=== PATIENT | male | born 1955 | race American Indian/Alaskan Native ===

== ENCOUNTER → 2017-06-14 | Outpatient (REF) | payer OTHER ==
[2017-06-14 13:33] LABS: BASO # 0.1 10^3/uL (0.0-0.2); BASO % 0.9 % (0.0-1.0); EOS # 0.3 10^3/uL (0.0-0.50); EOS % 4.6 % (0.0-3.0); HEMATOCRIT 48.2 % (42.0-52.0); IMMATURE GRANULOCYTE % 0.1 % (0-3.0); LYMPH % 13.7 % (24.0-44.0); MEAN CORPUSCULAR HEMOGLOBIN 31.2 pg (27.0-33.0); MEAN CORPUSCULAR HGB CONC 33.2 g/dl (32.0-36.5); MONO # 0.8 10^3/uL (0.0-0.8); MONO % 11.5 % (0.0-5.0); NEUTROPHILS # 4.9 10^3/uL (1.8-7.7); NEUTROPHILS % 69.2 % (36.0-66.0); PLATELET COUNT, AUTOMATED 323 10^3/uL (150-450); RED BLOOD COUNT 5.13 10^6/uL (4.30-6.10); RED CELL DISTRIBUTION WIDTH 14.7 % (11.5-14.5)
[2017-06-14 13:46] LABS: TOTAL 25(OH) VITAMIN D 26.5 NG/ML (30.0-100.0)
[2017-06-14 13:49] LABS: ALBUMIN/GLOBULIN RATIO 1.08 (1.00-1.93); ALKALINE PHOSPHATASE 103 U/L (45-117); ALT/SGPT 14 U/L (12-78); ANION GAP 4 MEQ/L (8-16); AST/SGOT 18 U/L (7-37); BILIRUBIN,TOTAL 0.4 MG/DL (0.2-1.0); BLOOD UREA NITROGEN 12 MG/DL (7-18); CALCIUM LEVEL 8.8 MG/DL (8.8-10.2); CARBON DIOXIDE LEVEL 38 MEQ/L (21-32); CHLORIDE LEVEL 85 MEQ/L (98-107); CREATININE FOR GFR 0.76 MG/DL (0.70-1.30); GLOMERULAR FILTRATION RATE > 60.0 (>49); GLUCOSE, FASTING 88 MG/DL (70-100); POTASSIUM SERUM 5.1 MEQ/L (3.5-5.1); RHEUMATOID FACTOR QUANT < 10.0 IU/ML (<15.0); SODIUM LEVEL 127 MEQ/L (136-145); TOTAL PROTEIN 7.7 GM/DL (6.4-8.2)
[2017-06-14 15:01] LABS: ERYTHROCYTE SEDIMENTATION RATE 1 mm/hr (0-20)
[2017-06-15 14:16] LABS: ANTINUCLEAR ANTIBODIES DIRECT Negative (Negative)
== END ==
LOC: M LABNEURO 10:16
DX: R51 Headache (principal)
CPT/HCPCS: 84443

== ENCOUNTER 2017-11-01 17:05 | Inpatient (IN) | payer OTHER ==
[2017-11-01] MEDS: IPRATROPIUM 0.5MG/ALBUTEROL 2.5MG INH SOL UD 3ML (DUONEB)(J7620) NEB ×3 (17:37→17:56)
[2017-11-01 17:58] LABS: ABG BASE EXCESS 7.5 (-2.0-2.0); ABG HCO3 37.2 MEQ/L (22.0-26.0); ABG O2 SATURATION 87.1 % (95.0-99.0); ABG PARTIAL PRESSURE O2 52.9 mmHg (75.0-100.0); ABG TOTAL CO2 39.5 MEQ/L (23.0-31.0); ABG pH (ARTERIAL) 7.314 UNITS (7.350-7.450)
[2017-11-01 18:01] LABS: ABG PARTIAL PRESSURE CO2 74.8 mmHg (35.0-45.0)
[2017-11-01 18:12] LABS: HEMATOCRIT 51.2 % (42.0-52.0); IMMATURE GRANULOCYTE % 0.8 % (0-3.0); LYMPH % 7.2 % (24.0-44.0); MEAN CORPUSCULAR HEMOGLOBIN 29.3 pg (27.0-33.0); MEAN CORPUSCULAR HGB CONC 31.3 g/dl (32.0-36.5); MEAN CORPUSCULAR VOLUME 93.6 fl (80.0-96.0); MONO # 0.5 10^3/uL (0.0-0.8); MONO % 18.2 % (0.0-5.0); NEUTROPHILS % 73.8 % (36.0-66.0); PLATELET COUNT, AUTOMATED 197 10^3/uL (150-450); RED BLOOD COUNT 5.47 10^6/uL (4.30-6.10); RED CELL DISTRIBUTION WIDTH 21.1 % (11.5-14.5); WHITE BLOOD COUNT 2.6 10^3/uL (4.0-10.0)
[2017-11-01] MEDS: cefTRIAXone SOD 1 GM in D5W MINI-BAG PLUS 50 ML IV (18:20)
[2017-11-01] MEDS: dexameTHASONE 20 MG/5 ML VIAL (J1100) IV (18:20)
[2017-11-01 18:23] LABS: INR 1.17; PROTHROMBIN TIME 15.1 SECONDS (12.1-14.4)
[2017-11-01 18:25] LABS: D-DIMER QUANT 2082.9 ng/ml (<500)
[2017-11-01 18:38] LABS: AMMONIA 35 uMOL/L (<32)
[2017-11-01 18:40] LABS: LYMPH # 0.2 10^3/uL (1.5-4.5)
[2017-11-01 18:41] LABS: POSITIVE DIFF POS FLAG
[2017-11-01 18:43] LABS: LACTIC ACID SEPSIS PROTOCOL 2.2 MMOL/L (0.4-2.0)
[2017-11-01 18:50] LABS: ALBUMIN 3.6 GM/DL (3.2-5.2); ALKALINE PHOSPHATASE 62 U/L (45-117); ALT/SGPT 45 U/L (12-78); ANION GAP 8 MEQ/L (8-16); AST/SGOT 18 U/L (7-37); BILIRUBIN,DIRECT 0.2 MG/DL (0.0-0.2); BILIRUBIN,TOTAL 0.4 MG/DL (0.2-1.0); BLOOD UREA NITROGEN 15 MG/DL (7-18); CALCIUM LEVEL 8.7 MG/DL (8.8-10.2); CARBON DIOXIDE LEVEL 35 MEQ/L (21-32); CHLORIDE LEVEL 97 MEQ/L (98-107); CPK CREATINE PHOSPHOKINASE 37 U/L (39-308); CREATININE FOR GFR 0.88 MG/DL (0.70-1.30); GLOMERULAR FILTRATION RATE > 60.0 (>49); GLUCOSE, FASTING 129 MG/DL (70-100); MB/CK RELATIVE INDEX 9.19 (< OR =4); NT-PRO BNP 4007 PG/ML (<125); POTASSIUM SERUM 5.1 MEQ/L (3.5-5.1); SODIUM LEVEL 140 MEQ/L (136-145); TOTAL PROTEIN 6.6 GM/DL (6.4-8.2); TROPONIN I 0.24 NG/ML (< 0.10)
[2017-11-01] MEDS: AZITHROMYCIN INJ 500 MG, VIAL MATE ADAPTER 1 EACH in D5W 250 ML IV (18:58)
[2017-11-01] MEDS ORDERED: IPRATROPIUM 0.5MG/ALBUTEROL 2.5MG INH SOL UD 3ML (DUONEB)(J7620) NEB (19:15)
[2017-11-01] MEDS ORDERED: ISOVUE-370 76% 100ML VIAL (Q9967) As Ordered (19:25)
[2017-11-01] MEDS ORDERED: ONDANSETRON 4MG/2ML VIAL (J2405) IV (19:45)
[2017-11-01] MEDS ORDERED: ENOXAPARIN 60 MG/0.6 ML SYR (J1650) SC (20:00)
[2017-11-01 20:33] LABS: CPK CREATINE PHOSPHOKINASE 33 U/L (39-308); TROPONIN I 0.23 NG/ML (< 0.10)
[2017-11-01] MEDS: VANCOMYCIN HCL 1,000 MG, VIAL MATE ADAPTER 1 EACH in D5W 250 ML IV (20:42)
[2017-11-01] MEDS: FAMOTIDINE 20 MG TAB PO (22:37)
[2017-11-01] MEDS: DIVALPROEX 500 MG TAB PO (22:38)
[2017-11-01] MEDS: VANCOMYCIN HCL 500 MG in D5W MINI-BAG PLUS 100 ML IV (22:38)
[2017-11-01] MEDS: CEFEPIME HCL 2 GM in D5W MINI-BAG PLUS 50 ML IV (22:39)
[2017-11-01] MEDS: HEPARIN SOD (PORCINE) 5000 UNITS/ML VIAL SC (22:39)
[2017-11-01] MEDS: OXAZEPAM 10 MG CAP PO (22:40)
[2017-11-02] MEDS: methylPREDNISolone INJ 125 MG/2 ML VIAL (J2930) IV ×3 (02:12→17:59)
[2017-11-02 02:33] LABS: CPK CREATINE PHOSPHOKINASE 34 U/L (39-308); MB/CK RELATIVE INDEX 9.12 (< OR =4); TROPONIN I 0.27 NG/ML (< 0.10)
[2017-11-02] MEDS: SYMBICORT 160/4.5MCG INHALER 6GM INH ×3 (03:23→20:07)
[2017-11-02] MEDS: IPRATROPIUM 0.5MG/ALBUTEROL 2.5MG INH SOL UD 3ML (DUONEB)(J7620) NEB (03:23)
[2017-11-02] MEDS: HEPARIN SOD (PORCINE) 5000 UNITS/ML VIAL SC ×3 (05:48→21:25)
[2017-11-02 05:55] LABS: HEMOGLOBIN 15.6 g/dl (13.5-17.5); MEAN CORPUSCULAR HEMOGLOBIN 29.1 pg (27.0-33.0); MEAN CORPUSCULAR HGB CONC 31.8 g/dl (32.0-36.5); MEAN CORPUSCULAR VOLUME 91.2 fl (80.0-96.0); PLATELET COUNT, AUTOMATED 180 10^3/uL (150-450); RED BLOOD COUNT 5.37 10^6/uL (4.30-6.10); RED CELL DISTRIBUTION WIDTH 20.9 % (11.5-14.5); WHITE BLOOD COUNT 4.6 10^3/uL (4.0-10.0)
[2017-11-02] MEDS ORDERED: HEPARIN SOD (PORCINE) 5000 UNITS/ML VIAL SC (06:00)
[2017-11-02 06:08] LABS: ABG HCO3 42.6 MEQ/L (22.0-26.0); ABG O2 SATURATION 91.9 % (95.0-99.0); ABG PARTIAL PRESSURE CO2 91.1 mmHg (35.0-45.0); ABG STANDARD HCO3 34.6 MEQ/L (22.0-26.0); ABG TOTAL CO2 45.4 MEQ/L (23.0-31.0); ABG pH (ARTERIAL) 7.288 UNITS (7.350-7.450)
[2017-11-02 06:31] LABS: ALBUMIN 3.6 GM/DL (3.2-5.2); ALBUMIN/GLOBULIN RATIO 1.09 (1.00-1.93); ALKALINE PHOSPHATASE 55 U/L (45-117); ALT/SGPT 39 U/L (12-78); ANION GAP 7 MEQ/L (8-16); AST/SGOT 16 U/L (7-37); BILIRUBIN,TOTAL 0.4 MG/DL (0.2-1.0); BLOOD UREA NITROGEN 13 MG/DL (7-18); C REACTIVE PROTEIN QUANTITATIV 0.78 MG/DL (0.00-0.30); CALCIUM LEVEL 8.8 MG/DL (8.8-10.2); CARBON DIOXIDE LEVEL 36 MEQ/L (21-32); CHLORIDE LEVEL 96 MEQ/L (98-107); CPK CREATINE PHOSPHOKINASE 34 U/L (39-308); CREATININE FOR GFR 0.69 MG/DL (0.70-1.30); GLOMERULAR FILTRATION RATE > 60.0 (>49); GLUCOSE, FASTING 113 MG/DL (70-100); MAGNESIUM LEVEL 1.7 MG/DL (1.8-2.4); MB/CK RELATIVE INDEX 9.71 (< OR =4); POTASSIUM SERUM 4.9 MEQ/L (3.5-5.1); SODIUM LEVEL 139 MEQ/L (136-145); TOTAL PROTEIN 6.9 GM/DL (6.4-8.2); TROPONIN I 0.26 NG/ML (< 0.10)
[2017-11-02] MEDS: MAG SULF 1GM/100ML (MAG RUN) 1 GM in APPROPRIATE DILUENT 1 EA IV (06:55)
[2017-11-02] MEDS: TIOTROPIUM INHALER/CAPSULE (SPIRIVA) INH (07:37)
[2017-11-02] MEDS: ALBUTEROL SULFATE 2.5 MG/0.5 ML INH NEB SOLN NEB ×3 (07:38→20:00)
[2017-11-02] MEDS: NS 1,000 ML IV (08:05)
[2017-11-02] MEDS: VANCOMYCIN HCL 1,000 MG, VIAL MATE ADAPTER 1 EACH in D5W 250 ML IV ×2 (08:05→20:13)
[2017-11-02] MEDS: DIVALPROEX 500 MG TAB PO ×2 (08:06→21:24)
[2017-11-02] MEDS: FOLIC ACID 1 MG TAB PO (08:06)
[2017-11-02] MEDS: THIAMINE 100 MG TAB PO (08:06)
[2017-11-02] MEDS: PARoxetine 25 MG CR TAB (PAXIL CR) PO (08:06)
[2017-11-02] MEDS: MULTIVITAMINS/MINERALS THERAP 1 TAB PO (08:06)
[2017-11-02] MEDS: FAMOTIDINE 20 MG TAB PO ×2 (08:06→21:24)
[2017-11-02] MEDS: LISINOPRIL 20 MG TAB PO (08:08)
[2017-11-02 10:25] LABS: HIV 1&2 SCREEN CENTAUR NEGATIVE (NEGATIVE)
[2017-11-02 10:38] LABS: ABG BASE EXCESS 7.1 (-2.0-2.0); ABG HCO3 36.2 MEQ/L (22.0-26.0); ABG O2 SATURATION 90.9 % (95.0-99.0); ABG PARTIAL PRESSURE O2 62.4 mmHg (75.0-100.0); ABG STANDARD HCO3 30.7 MEQ/L (22.0-26.0); ABG TOTAL CO2 38.4 MEQ/L (23.0-31.0); ABG pH (ARTERIAL) 7.333 UNITS (7.350-7.450)
[2017-11-02 10:40] LABS: ABG PARTIAL PRESSURE CO2 69.8 mmHg (35.0-45.0)
[2017-11-02] MEDS: CEFEPIME HCL 2 GM in D5W MINI-BAG PLUS 50 ML IV ×2 (11:41→23:54)
[2017-11-02] MEDS: LORazepam 2 MG TAB PO ×2 (12:12→21:24)
[2017-11-02] MEDS: AZITHROMYCIN INJ 500 MG, VIAL MATE ADAPTER 1 EACH in D5W 250 ML IV (17:59)
[2017-11-03] MEDS: ALBUTEROL SULFATE 2.5 MG/0.5 ML INH NEB SOLN NEB ×4 (00:58→20:00)
[2017-11-03] MEDS: NS 1,000 ML IV (01:43)
[2017-11-03] MEDS: methylPREDNISolone INJ 125 MG/2 ML VIAL (J2930) IV ×3 (01:43→17:54)
[2017-11-03] MEDS: HEPARIN SOD (PORCINE) 5000 UNITS/ML VIAL SC ×3 (06:11→21:26)
[2017-11-03] MEDS: LORazepam 2 MG TAB PO ×2 (06:11→21:49)
[2017-11-03] MEDS: TIOTROPIUM INHALER/CAPSULE (SPIRIVA) INH (07:30)
[2017-11-03] MEDS: SYMBICORT 160/4.5MCG INHALER 6GM INH ×2 (07:30→20:27)
[2017-11-03 07:56] LABS: HEMATOCRIT 51.6 % (42.0-52.0); HEMOGLOBIN 16.5 g/dl (13.5-17.5); MEAN CORPUSCULAR HEMOGLOBIN 29.3 pg (27.0-33.0); MEAN CORPUSCULAR VOLUME 91.7 fl (80.0-96.0); PLATELET COUNT, AUTOMATED 180 10^3/uL (150-450); RED BLOOD COUNT 5.63 10^6/uL (4.30-6.10); RED CELL DISTRIBUTION WIDTH 20.6 % (11.5-14.5); WHITE BLOOD COUNT 3.9 10^3/uL (4.0-10.0)
[2017-11-03] MEDS: VANCOMYCIN HCL 1,000 MG, VIAL MATE ADAPTER 1 EACH in D5W 250 ML IV (08:23)
[2017-11-03 08:31] LABS: BLOOD UREA NITROGEN 16 MG/DL (7-18); CREATININE FOR GFR 0.69 MG/DL (0.70-1.30); GLOMERULAR FILTRATION RATE > 60.0 (>49); GLUCOSE, FASTING 114 MG/DL (70-100); SODIUM LEVEL 137 MEQ/L (136-145)
[2017-11-03 08:32] LABS: CARBON DIOXIDE LEVEL 34 MEQ/L (21-32); CHLORIDE LEVEL 97 MEQ/L (98-107); POTASSIUM SERUM 5.3 MEQ/L (3.5-5.1)
[2017-11-03 08:33] LABS: ALBUMIN 3.3 GM/DL (3.2-5.2); ALBUMIN/GLOBULIN RATIO 1.18 (1.00-1.93); ALKALINE PHOSPHATASE 50 U/L (45-117); ALT/SGPT 32 U/L (12-78); ANION GAP 6 MEQ/L (8-16); AST/SGOT 11 U/L (7-37); BILIRUBIN,TOTAL 0.4 MG/DL (0.2-1.0); CALCIUM LEVEL 8.9 MG/DL (8.8-10.2); MAGNESIUM LEVEL 1.9 MG/DL (1.8-2.4); TOTAL PROTEIN 6.1 GM/DL (6.4-8.2); VANCOMYCIN LEVEL TROUGH 14.9 UG/ML (10.0-20.0)
[2017-11-03 08:34] LABS: C REACTIVE PROTEIN QUANTITATIV 0.44 MG/DL (0.00-0.30)
[2017-11-03 08:55] LABS: ABG BASE EXCESS 3.7 (-2.0-2.0); ABG HCO3 32.1 MEQ/L (22.0-26.0); ABG PARTIAL PRESSURE O2 68.7 mmHg (75.0-100.0); ABG STANDARD HCO3 27.6 MEQ/L (22.0-26.0); ABG TOTAL CO2 34.1 MEQ/L (23.0-31.0); ABG pH (ARTERIAL) 7.319 UNITS (7.350-7.450)
[2017-11-03 09:01] LABS: ABG PARTIAL PRESSURE CO2 63.9 mmHg (35.0-45.0)
[2017-11-03] MEDS: FAMOTIDINE 20 MG TAB PO ×2 (10:26→21:25)
[2017-11-03] MEDS: PARoxetine 25 MG CR TAB (PAXIL CR) PO (10:26)
[2017-11-03] MEDS: THEOPHYLLINE (THEO-24) 100MG SR **CAPSULE PO ×2 (10:26→21:25)
[2017-11-03] MEDS: amLODIPine 5 MG TAB PO (10:27)
[2017-11-03] MEDS: FOLIC ACID 1 MG TAB PO (10:27)
[2017-11-03] MEDS: THIAMINE 100 MG TAB PO (10:27)
[2017-11-03] MEDS: MULTIVITAMINS/MINERALS THERAP 1 TAB PO (10:27)
[2017-11-03] MEDS: LISINOPRIL 20 MG TAB PO (10:27)
[2017-11-03] MEDS: DIVALPROEX 500 MG TAB PO ×2 (10:28→21:25)
[2017-11-03] MEDS: FUROSEMIDE 40 MG/4 ML VIAL (J1940) IV (10:28)
[2017-11-03] MEDS: INFLUENZA QUADRIVALENT PF VACCINE 0.5ML SYRINGE (90686) IM (12:53)
[2017-11-03] MEDS: CEFEPIME HCL 2 GM in D5W MINI-BAG PLUS 50 ML IV (12:55)
[2017-11-03] MEDS: AZITHROMYCIN INJ 500 MG, VIAL MATE ADAPTER 1 EACH in D5W 250 ML IV (17:54)
[2017-11-03 18:19] LABS: ABG BASE EXCESS 11.1 (-2.0-2.0); ABG HCO3 41.2 MEQ/L (22.0-26.0); ABG O2 SATURATION 92.2 % (95.0-99.0); ABG PARTIAL PRESSURE O2 66.2 mmHg (75.0-100.0); ABG STANDARD HCO3 34.7 MEQ/L (22.0-26.0); ABG TOTAL CO2 43.5 MEQ/L (23.0-31.0); ABG pH (ARTERIAL) 7.346 UNITS (7.350-7.450)
[2017-11-04] MEDS: CEFEPIME HCL 2 GM in D5W MINI-BAG PLUS 50 ML IV ×3 (00:25→23:53)
[2017-11-04] MEDS: ALBUTEROL SULFATE 2.5 MG/0.5 ML INH NEB SOLN NEB ×4 (00:53→20:00)
[2017-11-04] MEDS: methylPREDNISolone INJ 125 MG/2 ML VIAL (J2930) IV ×2 (01:00→09:45)
[2017-11-04] MEDS: HEPARIN SOD (PORCINE) 5000 UNITS/ML VIAL SC ×3 (05:07→21:52)
[2017-11-04 06:32] LABS: HEMATOCRIT 47.6 % (42.0-52.0); HEMOGLOBIN 15.7 g/dl (13.5-17.5); MEAN CORPUSCULAR VOLUME 87.8 fl (80.0-96.0); PLATELET COUNT, AUTOMATED 179 10^3/uL (150-450); RED BLOOD COUNT 5.42 10^6/uL (4.30-6.10); RED CELL DISTRIBUTION WIDTH 20.3 % (11.5-14.5); WHITE BLOOD COUNT 4.8 10^3/uL (4.0-10.0)
[2017-11-04 06:51] LABS: ALBUMIN/GLOBULIN RATIO 1.07 (1.00-1.93); ALKALINE PHOSPHATASE 44 U/L (45-117); ALT/SGPT 27 U/L (12-78); ANION GAP 6 MEQ/L (8-16); AST/SGOT 12 U/L (7-37); BILIRUBIN,TOTAL 0.6 MG/DL (0.2-1.0); BLOOD UREA NITROGEN 16 MG/DL (7-18); C REACTIVE PROTEIN QUANTITATIV 0.31 MG/DL (0.00-0.30); CALCIUM LEVEL 8.9 MG/DL (8.8-10.2); CARBON DIOXIDE LEVEL 41 MEQ/L (21-32); CHLORIDE LEVEL 92 MEQ/L (98-107); GLOMERULAR FILTRATION RATE > 60.0 (>49); GLUCOSE, FASTING 105 MG/DL (70-100); MAGNESIUM LEVEL 1.6 MG/DL (1.8-2.4); POTASSIUM SERUM 4.2 MEQ/L (3.5-5.1); SODIUM LEVEL 139 MEQ/L (136-145); TOTAL PROTEIN 5.8 GM/DL (6.4-8.2)
[2017-11-04] MEDS: SYMBICORT 160/4.5MCG INHALER 6GM INH ×2 (07:33→20:00)
[2017-11-04] MEDS: TIOTROPIUM INHALER/CAPSULE (SPIRIVA) INH (07:33)
[2017-11-04] MEDS: THIAMINE 100 MG TAB PO (08:44)
[2017-11-04] MEDS: PARoxetine 25 MG CR TAB (PAXIL CR) PO (08:44)
[2017-11-04] MEDS: MULTIVITAMINS/MINERALS THERAP 1 TAB PO (08:44)
[2017-11-04] MEDS: FAMOTIDINE 20 MG TAB PO ×2 (08:44→21:52)
[2017-11-04] MEDS: FOLIC ACID 1 MG TAB PO (08:44)
[2017-11-04] MEDS: amLODIPine 5 MG TAB PO (08:44)
[2017-11-04] MEDS: DIVALPROEX 500 MG TAB PO ×2 (08:44→21:52)
[2017-11-04] MEDS: THEOPHYLLINE (THEO-24) 100MG SR **CAPSULE PO ×2 (08:44→21:51)
[2017-11-04] MEDS: LISINOPRIL 20 MG TAB PO (08:45)
[2017-11-04 10:52] LABS: ABG BASE EXCESS 9.1 (-2.0-2.0); ABG HCO3 36.8 MEQ/L (22.0-26.0); ABG O2 SATURATION 91.8 % (95.0-99.0); ABG PARTIAL PRESSURE O2 61.5 mmHg (75.0-100.0); ABG STANDARD HCO3 32.8 MEQ/L (22.0-26.0); ABG TOTAL CO2 38.6 MEQ/L (23.0-31.0); ABG pH (ARTERIAL) 7.405 UNITS (7.350-7.450)
[2017-11-04] MEDS: AZITHROMYCIN INJ 500 MG, VIAL MATE ADAPTER 1 EACH in D5W 250 ML IV (18:11)
[2017-11-04] MEDS: NICOTINE 21MG/24HR 1 EA TRANSDERMAL TD (18:11)
[2017-11-04] MEDS: methylPREDNISolone INJ 40 MG/1 ML VIAL (J2920) IV (22:57)
[2017-11-05] MEDS: HEPARIN SOD (PORCINE) 5000 UNITS/ML VIAL SC ×3 (05:42→21:35)
[2017-11-05 05:48] LABS: HEMATOCRIT 48.5 % (42.0-52.0); HEMOGLOBIN 16.4 g/dl (13.5-17.5); MEAN CORPUSCULAR HGB CONC 33.8 g/dl (32.0-36.5); MEAN CORPUSCULAR VOLUME 85.8 fl (80.0-96.0); PLATELET COUNT, AUTOMATED 194 10^3/uL (150-450); RED BLOOD COUNT 5.65 10^6/uL (4.30-6.10); RED CELL DISTRIBUTION WIDTH 19.2 % (11.5-14.5); WHITE BLOOD COUNT 4.3 10^3/uL (4.0-10.0)
[2017-11-05 06:08] LABS: ALBUMIN 3.1 GM/DL (3.2-5.2); ALBUMIN/GLOBULIN RATIO 1.03 (1.00-1.93); ALKALINE PHOSPHATASE 44 U/L (45-117); ALT/SGPT 24 U/L (12-78); ANION GAP 9 MEQ/L (8-16); AST/SGOT 12 U/L (7-37); BILIRUBIN,TOTAL 0.6 MG/DL (0.2-1.0); BLOOD UREA NITROGEN 14 MG/DL (7-18); C REACTIVE PROTEIN QUANTITATIV < 0.30 MG/DL (0.00-0.30); CALCIUM LEVEL 9.2 MG/DL (8.8-10.2); CARBON DIOXIDE LEVEL 40 MEQ/L (21-32); CHLORIDE LEVEL 87 MEQ/L (98-107); CREATININE FOR GFR 0.69 MG/DL (0.70-1.30); GLOMERULAR FILTRATION RATE > 60.0 (>49); GLUCOSE, FASTING 113 MG/DL (70-100); MAGNESIUM LEVEL 1.5 MG/DL (1.8-2.4); POTASSIUM SERUM 3.6 MEQ/L (3.5-5.1); SODIUM LEVEL 136 MEQ/L (136-145); TOTAL PROTEIN 6.1 GM/DL (6.4-8.2)
[2017-11-05] MEDS: TIOTROPIUM INHALER/CAPSULE (SPIRIVA) INH (07:54)
[2017-11-05] MEDS: SYMBICORT 160/4.5MCG INHALER 6GM INH ×2 (07:54→21:01)
[2017-11-05] MEDS: ALBUTEROL SULFATE 2.5 MG/0.5 ML INH NEB SOLN NEB ×3 (07:55→20:00)
[2017-11-05 09:17] LABS: ABG BASE EXCESS 11.6 (-2.0-2.0); ABG HCO3 38.3 MEQ/L (22.0-26.0); ABG O2 SATURATION 95.8 % (95.0-99.0); ABG PARTIAL PRESSURE O2 74.9 mmHg (75.0-100.0); ABG STANDARD HCO3 35.4 MEQ/L (22.0-26.0); ABG pH (ARTERIAL) 7.453 UNITS (7.350-7.450)
[2017-11-05] MEDS: methylPREDNISolone INJ 40 MG/1 ML VIAL (J2920) IV ×2 (10:13→21:34)
[2017-11-05] MEDS: PARoxetine 25 MG CR TAB (PAXIL CR) PO (10:14)
[2017-11-05] MEDS: THIAMINE 100 MG TAB PO (10:14)
[2017-11-05] MEDS: MULTIVITAMINS/MINERALS THERAP 1 TAB PO (10:14)
[2017-11-05] MEDS: FAMOTIDINE 20 MG TAB PO ×2 (10:14→21:34)
[2017-11-05] MEDS: THEOPHYLLINE (THEO-24) 100MG SR **CAPSULE PO ×2 (10:14→21:34)
[2017-11-05] MEDS: FOLIC ACID 1 MG TAB PO (10:15)
[2017-11-05] MEDS: DIVALPROEX 500 MG TAB PO ×2 (10:15→21:34)
[2017-11-05] MEDS: amLODIPine 5 MG TAB PO (10:18)
[2017-11-05] MEDS: LISINOPRIL 20 MG TAB PO (10:18)
[2017-11-05] MEDS: CEFEPIME HCL 2 GM in D5W MINI-BAG PLUS 50 ML IV (12:58)
[2017-11-05] MEDS: AZITHROMYCIN INJ 500 MG, VIAL MATE ADAPTER 1 EACH in D5W 250 ML IV (18:55)
[2017-11-05] MEDS: EXCEDRIN MIGRAINE TABLET PO (21:34)
[2017-11-06] MEDS: CEFEPIME HCL 2 GM in D5W MINI-BAG PLUS 50 ML IV ×2 (00:24→12:31)
[2017-11-06] MEDS: ALBUTEROL SULFATE 2.5 MG/0.5 ML INH NEB SOLN NEB ×3 (02:00→13:44)
[2017-11-06] MEDS: HEPARIN SOD (PORCINE) 5000 UNITS/ML VIAL SC ×2 (05:50→15:30)
[2017-11-06 06:43] LABS: HEMATOCRIT 47.6 % (42.0-52.0); HEMOGLOBIN 15.9 g/dl (13.5-17.5); MEAN CORPUSCULAR HEMOGLOBIN 29.1 pg (27.0-33.0); MEAN CORPUSCULAR HGB CONC 33.4 g/dl (32.0-36.5); PLATELET COUNT, AUTOMATED 190 10^3/uL (150-450); RED BLOOD COUNT 5.47 10^6/uL (4.30-6.10); RED CELL DISTRIBUTION WIDTH 18.8 % (11.5-14.5); WHITE BLOOD COUNT 2.9 10^3/uL (4.0-10.0)
[2017-11-06 07:14] LABS: ALBUMIN 2.9 GM/DL (3.2-5.2); ALBUMIN/GLOBULIN RATIO 1.07 (1.00-1.93); ALKALINE PHOSPHATASE 39 U/L (45-117); ALT/SGPT 23 U/L (12-78); ANION GAP 7 MEQ/L (8-16); AST/SGOT 11 U/L (7-37); BILIRUBIN,TOTAL 0.6 MG/DL (0.2-1.0); BLOOD UREA NITROGEN 15 MG/DL (7-18); C REACTIVE PROTEIN QUANTITATIV < 0.30 MG/DL (0.00-0.30); CALCIUM LEVEL 9.3 MG/DL (8.8-10.2); CARBON DIOXIDE LEVEL 42 MEQ/L (21-32); CHLORIDE LEVEL 88 MEQ/L (98-107); CREATININE FOR GFR 0.53 MG/DL (0.70-1.30); GLOMERULAR FILTRATION RATE > 60.0 (>49); GLUCOSE, FASTING 131 MG/DL (70-100); MAGNESIUM LEVEL 1.7 MG/DL (1.8-2.4); SODIUM LEVEL 137 MEQ/L (136-145); TOTAL PROTEIN 5.6 GM/DL (6.4-8.2)
[2017-11-06 07:21] LABS: HIVSOURCE0 NEGATIVE (NEGATIVE)
[2017-11-06 07:23] LABS: CONTROL LINE INT CTR LINE PRESENT; HIV SOURCE PT 1 NEGATIVE (NEGATIVE)
[2017-11-06] MEDS: MAG SULF 1GM/100ML (MAG RUN) 1 GM in APPROPRIATE DILUENT 1 EA IV (10:43)
[2017-11-06] MEDS: methylPREDNISolone INJ 40 MG/1 ML VIAL (J2920) IV (10:43)
[2017-11-06] MEDS: MULTIVITAMINS/MINERALS THERAP 1 TAB PO (10:44)
[2017-11-06] MEDS: FOLIC ACID 1 MG TAB PO (10:44)
[2017-11-06] MEDS: FAMOTIDINE 20 MG TAB PO (10:44)
[2017-11-06] MEDS: DIVALPROEX 500 MG TAB PO (10:44)
[2017-11-06] MEDS: THEOPHYLLINE (THEO-24) 100MG SR **CAPSULE PO (10:44)
[2017-11-06] MEDS: THIAMINE 100 MG TAB PO (10:45)
[2017-11-06] MEDS: PARoxetine 25 MG CR TAB (PAXIL CR) PO (10:48)
[2017-11-06] MEDS: amLODIPine 5 MG TAB PO (10:49)
[2017-11-06] MEDS: LISINOPRIL 20 MG TAB PO (10:49)
[2017-11-06] MEDS: SYMBICORT 160/4.5MCG INHALER 6GM INH (11:34)
[2017-11-06] MEDS: TIOTROPIUM INHALER/CAPSULE (SPIRIVA) INH (11:34)
[2017-11-06] MEDS: EXCEDRIN MIGRAINE TABLET PO (14:10)
== END 2017-11-06 19:19 | disposition home health service (06) | DRG 140 ==
LOC: M PCU 11-02 00:29 → M MSPAV 11-04 16:45 → M PCU 11-03 13:06 → M MSPAV 11-04 16:59 → M ED 17:05 → M ED INP 19:34 → M ICU 21:14
DX: J44.0 Chronic obstructive pulmonary disease with (acute) lower respiratory infection (principal); J96.22 Acute and chronic respiratory failure with hypercapnia; J18.9 Pneumonia, unspecified organism; J96.21 Acute and chronic respiratory failure with hypoxia; I27.29 Other secondary pulmonary hypertension; I11.0 Hypertensive heart disease with heart failure; E46 Unspecified protein-calorie malnutrition; I50.42 Chronic combined systolic (congestive) and diastolic (congestive) heart failure; Z99.81 Dependence on supplemental oxygen; F17.210 Nicotine dependence, cigarettes, uncomplicated; K21.9 Gastro-esophageal reflux disease without esophagitis; J44.1 Chronic obstructive pulmonary disease with (acute) exacerbation; F10.10 Alcohol abuse, uncomplicated; Z79.899 Other long term (current) drug therapy; Z91.19 Patient's noncompliance with other medical treatment and regimen; R19.7 Diarrhea, unspecified; G25.0 Essential tremor

== ENCOUNTER 2017-11-22 19:25 | Inpatient (IN) | payer OTHER ==
[2017-11-22] MEDS: SYMBICORT 160/4.5MCG INHALER 6GM INH (20:00)
[2017-11-22] MEDS ORDERED: ONDANSETRON 4 MG TAB (S0181) PO (20:30)
[2017-11-22] MEDS ORDERED: ONDANSETRON 4MG/2ML VIAL (J2405) IV (20:30)
[2017-11-22 20:57] LABS: HEMATOCRIT 43.3 % (42.0-52.0); HEMOGLOBIN 14.3 g/dl (13.5-17.5); IMMATURE GRANULOCYTE % 0.7 % (0-3.0); LYMPH # 0.3 10^3/uL (1.5-4.5); LYMPH % 6.2 % (24.0-44.0); MEAN CORPUSCULAR HEMOGLOBIN 29.1 pg (27.0-33.0); MONO # 0.7 10^3/uL (0.0-0.8); MONO % 14.4 % (0.0-5.0); NEUTROPHILS # 3.5 10^3/uL (1.8-7.7); NEUTROPHILS % 78.7 % (36.0-66.0); PLATELET COUNT, AUTOMATED 214 10^3/uL (150-450); RED BLOOD COUNT 4.92 10^6/uL (4.30-6.10); RED CELL DISTRIBUTION WIDTH 17.7 % (11.5-14.5); WHITE BLOOD COUNT 4.5 10^3/uL (4.0-10.0)
[2017-11-22 21:15] LABS: POSITIVE DIFF POS FLAG
[2017-11-22 21:28] LABS: ANION GAP 8 MEQ/L (8-16); BLOOD UREA NITROGEN 21 MG/DL (7-18); CALCIUM LEVEL 8.7 MG/DL (8.8-10.2); CARBON DIOXIDE LEVEL 44 MEQ/L (21-32); CHLORIDE LEVEL 81 MEQ/L (98-107); CPK CREATINE PHOSPHOKINASE 42 U/L (39-308); CREATININE FOR GFR 0.93 MG/DL (0.70-1.30); GLOMERULAR FILTRATION RATE > 60.0 (>49); GLUCOSE, FASTING 122 MG/DL (70-100); MAGNESIUM LEVEL 1.5 MG/DL (1.8-2.4); MB/CK RELATIVE INDEX 6.43 (< OR =4); NT-PRO BNP 5787 PG/ML (<125); POTASSIUM SERUM 4.1 MEQ/L (3.5-5.1); SODIUM LEVEL 133 MEQ/L (136-145); TROPONIN I 0.61 NG/ML (< 0.10)
[2017-11-22 21:39] LABS: ABG BASE EXCESS 12.2 (-2.0-2.0); ABG HCO3 38.2 MEQ/L (22.0-26.0); ABG PARTIAL PRESSURE CO2 53.8 mmHg (35.0-45.0); ABG PARTIAL PRESSURE O2 66.9 mmHg (75.0-100.0); ABG STANDARD HCO3 35.9 MEQ/L (22.0-26.0); ABG TOTAL CO2 39.8 MEQ/L (23.0-31.0); ABG pH (ARTERIAL) 7.469 UNITS (7.350-7.450)
[2017-11-22] MEDS: methylPREDNISolone INJ 125 MG/2 ML VIAL (J2930) IV (22:06)
[2017-11-22] MEDS: IPRATROPIUM 0.5MG/ALBUTEROL 2.5MG INH SOL UD 3ML (DUONEB)(J7620) NEB (22:12)
[2017-11-22] MEDS: PERCOCET 5MG/325MG TAB PO (22:15)
[2017-11-22] MEDS: FUROSEMIDE 40 MG/4 ML VIAL (J1940) IV (23:10)
[2017-11-22] MEDS: ATORVASTATIN 20 MG TAB PO (23:10)
[2017-11-22] MEDS: ASPIRIN 325 MG TAB PO (23:10)
[2017-11-22] MEDS: OMEPRAZOLE 20 MG CAP PO (23:11)
[2017-11-22] MEDS: MAG SULF 1GM/100ML (MAG RUN) 1 GM in APPROPRIATE DILUENT 1 EA IV (23:11)
[2017-11-22] MEDS: FAMOTIDINE 20 MG TAB PO (23:11)
[2017-11-22] MEDS: ENOXAPARIN 60 MG/0.6 ML SYR (J1650) SC (23:41)
[2017-11-22] MEDS: THEOPHYLLINE (THEO-24) 100MG SR **CAPSULE PO (23:41)
[2017-11-22] MEDS: DIVALPROEX 500 MG TAB PO (23:41)
[2017-11-22 23:56] LABS: KETONE, URINE AUTO RFX NEGATIVE (NEGATIVE); LEUKOCYTE ESTERASE UR AUTO RFX NEGATIVE (NEGATIVE); NITRITE, URINE AUTO RFX NEGATIVE (NEGATIVE); RBC, URINE AUTO RFX 1 /HPF (0-3); SPECIFIC GRAVITY UR AUTO RFX 1.008 (1.002-1.035); SQUAM EPITHELIAL CELL UR AURFX 0 /HPF (0-6); WBC, URINE AUTO RFX 1 /HPF (0-3)
[2017-11-23] MEDS: MAG SULF 1GM/100ML (MAG RUN) 1 GM in APPROPRIATE DILUENT 1 EA IV (00:30)
[2017-11-23] MEDS: IPRATROPIUM 0.5MG/ALBUTEROL 2.5MG INH SOL UD 3ML (DUONEB)(J7620) NEB ×4 (02:07→21:20)
[2017-11-23] MEDS ORDERED: SLF 3 ML SYR IV (03:45)
[2017-11-23 04:57] LABS: EOS % 0.2 % (0.0-3.0); HEMOGLOBIN 13.8 g/dl (13.5-17.5); IMMATURE GRANULOCYTE % 0.4 % (0-3.0); LYMPH # 0.3 10^3/uL (1.5-4.5); LYMPH % 5.5 % (24.0-44.0); MEAN CORPUSCULAR HEMOGLOBIN 28.7 pg (27.0-33.0); MEAN CORPUSCULAR HGB CONC 32.9 g/dl (32.0-36.5); MEAN CORPUSCULAR VOLUME 87.3 fl (80.0-96.0); MONO # 0.5 10^3/uL (0.0-0.8); MONO % 9.5 % (0.0-5.0); NEUTROPHILS % 84.4 % (36.0-66.0); PLATELET COUNT, AUTOMATED 230 10^3/uL (150-450); RED BLOOD COUNT 4.81 10^6/uL (4.30-6.10); RED CELL DISTRIBUTION WIDTH 17.5 % (11.5-14.5); WHITE BLOOD COUNT 4.8 10^3/uL (4.0-10.0)
[2017-11-23 04:58] LABS: POSITIVE DIFF POS FLAG
[2017-11-23 05:42] LABS: ESTIMATED AVERAGE GLUCOSE 123 MG/DL (60-110); HEMOGLOBIN A1c 5.9 %
[2017-11-23 05:46] LABS: ANION GAP 5 MEQ/L (8-16); BLOOD UREA NITROGEN 20 MG/DL (7-18); CALCIUM LEVEL 8.3 MG/DL (8.8-10.2); CHLORIDE LEVEL 82 MEQ/L (98-107); CPK CREATINE PHOSPHOKINASE 38 U/L (39-308); GLOMERULAR FILTRATION RATE > 60.0 (>49); GLUCOSE, FASTING 225 MG/DL (70-100); MAGNESIUM LEVEL 2.1 MG/DL (1.8-2.4); MB/CK RELATIVE INDEX 6.58 (< OR =4); POTASSIUM SERUM 3.4 MEQ/L (3.5-5.1); SODIUM LEVEL 134 MEQ/L (136-145); TROPONIN I 0.64 NG/ML (< 0.10)
[2017-11-23] MEDS: methylPREDNISolone INJ 125 MG/2 ML VIAL (J2930) IV ×3 (05:47→21:05)
[2017-11-23] MEDS: SLF 3 ML SYR IV ×3 (05:47→21:05)
[2017-11-23 05:55] LABS: CARBON DIOXIDE LEVEL 47 MEQ/L (21-32)
[2017-11-23] MEDS: NICOTINE 21MG/24HR 1 EA TRANSDERMAL TD (08:56)
[2017-11-23] MEDS: THEOPHYLLINE (THEO-24) 100MG SR **CAPSULE PO ×2 (08:57→20:54)
[2017-11-23] MEDS: SPIRONOLACTONE 12.5MG PER 1/2 TABLET PO (08:57)
[2017-11-23] MEDS: CARVedilol 3.125 MG TAB PO ×2 (08:57→20:55)
[2017-11-23] MEDS: PARoxetine 25 MG CR TAB (PAXIL CR) PO (08:58)
[2017-11-23] MEDS: ASPIRIN 81 MG CHEW TABLET PO (08:58)
[2017-11-23] MEDS: FAMOTIDINE 20 MG TAB PO ×2 (08:58→20:55)
[2017-11-23] MEDS: POTASSIUM CHLORIDE 10 MEQ SR TABLET PO (08:58)
[2017-11-23] MEDS: LISINOPRIL 20 MG TAB PO (08:58)
[2017-11-23] MEDS: FOLIC ACID 1 MG TAB PO (08:58)
[2017-11-23] MEDS: FUROSEMIDE 40 MG/4 ML VIAL (J1940) IV ×2 (08:59→18:01)
[2017-11-23] MEDS: DIVALPROEX 500 MG TAB PO ×2 (08:59→20:55)
[2017-11-23] MEDS: OMEPRAZOLE 20 MG CAP PO ×2 (08:59→20:55)
[2017-11-23] MEDS: THIAMINE 100 MG TAB PO (08:59)
[2017-11-23] MEDS: MULTIVITAMINS/MINERALS THERAP 1 TAB PO (08:59)
[2017-11-23] MEDS: ENOXAPARIN 60 MG/0.6 ML SYR (J1650) SC ×2 (09:00→20:56)
[2017-11-23] MEDS: TIOTROPIUM INHALER/CAPSULE (SPIRIVA) INH (09:06)
[2017-11-23] MEDS: SYMBICORT 160/4.5MCG INHALER 6GM INH ×2 (09:07→21:20)
[2017-11-23 13:49] LABS: CPK CREATINE PHOSPHOKINASE 33 U/L (39-308); MB/CK RELATIVE INDEX 7.58 (< OR =4); TROPONIN I 0.68 NG/ML (< 0.10)
[2017-11-23] MEDS: LORazepam 1 MG TAB PO (14:26)
[2017-11-23] MEDS: ACETAMINOPHEN TAB 650MG DOSE (2X325MG) PO (14:27)
[2017-11-23] MEDS: ATORVASTATIN 20 MG TAB PO (20:54)
[2017-11-24] MEDS: ACETAMINOPHEN TAB 650MG DOSE (2X325MG) PO (01:48)
[2017-11-24] MEDS: IPRATROPIUM 0.5MG/ALBUTEROL 2.5MG INH SOL UD 3ML (DUONEB)(J7620) NEB ×5 (01:49→21:27)
[2017-11-24 05:51] LABS: HEMATOCRIT 42.8 % (42.0-52.0); HEMOGLOBIN 14.2 g/dl (13.5-17.5); IMMATURE GRANULOCYTE % 0.3 % (0-3.0); LYMPH # 0.4 10^3/uL (1.5-4.5); LYMPH % 9.6 % (24.0-44.0); MEAN CORPUSCULAR HEMOGLOBIN 28.9 pg (27.0-33.0); MEAN CORPUSCULAR HGB CONC 33.2 g/dl (32.0-36.5); MONO # 0.4 10^3/uL (0.0-0.8); MONO % 10.2 % (0.0-5.0); NEUTROPHILS % 79.9 % (36.0-66.0); PLATELET COUNT, AUTOMATED 255 10^3/uL (150-450); RED BLOOD COUNT 4.92 10^6/uL (4.30-6.10); RED CELL DISTRIBUTION WIDTH 17.5 % (11.5-14.5); WHITE BLOOD COUNT 3.7 10^3/uL (4.0-10.0)
[2017-11-24] MEDS: methylPREDNISolone INJ 125 MG/2 ML VIAL (J2930) IV (06:11)
[2017-11-24] MEDS: SLF 3 ML SYR IV ×3 (06:11→21:19)
[2017-11-24 06:23] LABS: ANION GAP 5 MEQ/L (8-16); BLOOD UREA NITROGEN 26 MG/DL (7-18); CALCIUM LEVEL 8.1 MG/DL (8.8-10.2); CARBON DIOXIDE LEVEL 44 MEQ/L (21-32); CHLORIDE LEVEL 86 MEQ/L (98-107); CPK CREATINE PHOSPHOKINASE 25 U/L (39-308); CREATININE FOR GFR 0.81 MG/DL (0.70-1.30); GLOMERULAR FILTRATION RATE > 60.0 (>49); GLUCOSE, FASTING 119 MG/DL (70-100); MAGNESIUM LEVEL 1.7 MG/DL (1.8-2.4); POTASSIUM SERUM 3.5 MEQ/L (3.5-5.1); SODIUM LEVEL 135 MEQ/L (136-145)
[2017-11-24] MEDS: MAG SULF 1GM/100ML (MAG RUN) 1 GM in APPROPRIATE DILUENT 1 EA IV (06:41)
[2017-11-24] MEDS ORDERED: PILL CRUSHER/CUTTER 1 EACH XX (07:30)
[2017-11-24] MEDS: SYMBICORT 160/4.5MCG INHALER 6GM INH ×2 (07:43→21:26)
[2017-11-24] MEDS: TIOTROPIUM INHALER/CAPSULE (SPIRIVA) INH (07:43)
[2017-11-24] MEDS: NICOTINE 21MG/24HR 1 EA TRANSDERMAL TD (08:45)
[2017-11-24] MEDS: THEOPHYLLINE (THEO-24) 100MG SR **CAPSULE PO ×2 (08:46→21:18)
[2017-11-24] MEDS: ENOXAPARIN 60 MG/0.6 ML SYR (J1650) SC ×2 (08:46→21:19)
[2017-11-24] MEDS: MULTIVITAMINS/MINERALS THERAP 1 TAB PO (08:47)
[2017-11-24] MEDS: MAGNESIUM GLUCONATE 500 MG TAB PO ×2 (08:47→21:18)
[2017-11-24] MEDS: DIVALPROEX 500 MG TAB PO ×2 (08:47→21:17)
[2017-11-24] MEDS: POTASSIUM CHLORIDE 10 MEQ SR TABLET PO (08:48)
[2017-11-24] MEDS: LISINOPRIL 20 MG TAB PO (08:48)
[2017-11-24] MEDS: SPIRONOLACTONE 25 MG TAB PO (08:48)
[2017-11-24] MEDS: THIAMINE 100 MG TAB PO (08:48)
[2017-11-24] MEDS: FOLIC ACID 1 MG TAB PO (08:49)
[2017-11-24] MEDS: ASPIRIN 81 MG CHEW TABLET PO (08:49)
[2017-11-24] MEDS: FAMOTIDINE 20 MG TAB PO ×2 (08:49→21:18)
[2017-11-24] MEDS: CARVedilol 3.125 MG TAB PO ×2 (08:49→21:17)
[2017-11-24] MEDS: PARoxetine 25 MG CR TAB (PAXIL CR) PO (08:49)
[2017-11-24] MEDS: OMEPRAZOLE 20 MG CAP PO ×2 (08:49→21:18)
[2017-11-24] MEDS: FUROSEMIDE 40 MG/4 ML VIAL (J1940) IV ×2 (08:50→17:05)
[2017-11-24] MEDS: methylPREDNISolone INJ 40 MG/1 ML VIAL (J2920) IV (17:05)
[2017-11-24] MEDS: ATORVASTATIN 20 MG TAB PO (21:17)
[2017-11-24] MEDS: PERCOCET 5MG/325MG TAB PO (22:55)
[2017-11-25] MEDS: IPRATROPIUM 0.5MG/ALBUTEROL 2.5MG INH SOL UD 3ML (DUONEB)(J7620) NEB ×3 (02:37→20:00)
[2017-11-25] MEDS: SLF 3 ML SYR IV ×3 (05:23→22:00)
[2017-11-25] MEDS: methylPREDNISolone INJ 40 MG/1 ML VIAL (J2920) IV (05:23)
[2017-11-25 06:01] LABS: HEMATOCRIT 44.3 % (42.0-52.0); HEMOGLOBIN 14.4 g/dl (13.5-17.5); IMMATURE GRANULOCYTE % 0.2 % (0-3.0); LYMPH # 0.7 10^3/uL (1.5-4.5); LYMPH % 13.8 % (24.0-44.0); MEAN CORPUSCULAR HEMOGLOBIN 28.7 pg (27.0-33.0); MEAN CORPUSCULAR HGB CONC 32.5 g/dl (32.0-36.5); MEAN CORPUSCULAR VOLUME 88.4 fl (80.0-96.0); MONO # 0.7 10^3/uL (0.0-0.8); MONO % 14.6 % (0.0-5.0); NEUTROPHILS # 3.6 10^3/uL (1.8-7.7); NEUTROPHILS % 71.4 % (36.0-66.0); PLATELET COUNT, AUTOMATED 241 10^3/uL (150-450); RED BLOOD COUNT 5.01 10^6/uL (4.30-6.10); RED CELL DISTRIBUTION WIDTH 17.6 % (11.5-14.5)
[2017-11-25 06:57] LABS: ANION GAP 5 MEQ/L (8-16); BLOOD UREA NITROGEN 22 MG/DL (7-18); CALCIUM LEVEL 8.4 MG/DL (8.8-10.2); CARBON DIOXIDE LEVEL 45 MEQ/L (21-32); CHLORIDE LEVEL 87 MEQ/L (98-107); GLOMERULAR FILTRATION RATE > 60.0 (>49); GLUCOSE, FASTING 114 MG/DL (70-100); MAGNESIUM LEVEL 1.9 MG/DL (1.8-2.4); POTASSIUM SERUM 3.4 MEQ/L (3.5-5.1); SODIUM LEVEL 137 MEQ/L (136-145)
[2017-11-25] MEDS: MULTIVITAMINS/MINERALS THERAP 1 TAB PO (09:15)
[2017-11-25] MEDS: ENOXAPARIN 60 MG/0.6 ML SYR (J1650) SC (09:15)
[2017-11-25] MEDS: THIAMINE 100 MG TAB PO (09:15)
[2017-11-25] MEDS: FUROSEMIDE 40 MG/4 ML VIAL (J1940) IV ×2 (09:15→16:39)
[2017-11-25] MEDS: FAMOTIDINE 20 MG TAB PO ×2 (09:15→20:32)
[2017-11-25] MEDS: DIVALPROEX 500 MG TAB PO ×2 (09:15→20:32)
[2017-11-25] MEDS: THEOPHYLLINE (THEO-24) 100MG SR **CAPSULE PO ×2 (09:16→20:33)
[2017-11-25] MEDS: PARoxetine 25 MG CR TAB (PAXIL CR) PO (09:16)
[2017-11-25] MEDS: SPIRONOLACTONE 25 MG TAB PO (09:16)
[2017-11-25] MEDS: POTASSIUM CHLORIDE 10 MEQ SR TABLET PO ×2 (09:17→10:14)
[2017-11-25] MEDS: ASPIRIN 81 MG CHEW TABLET PO (09:17)
[2017-11-25] MEDS: MAGNESIUM GLUCONATE 500 MG TAB PO ×2 (09:17→20:32)
[2017-11-25] MEDS: FOLIC ACID 1 MG TAB PO (09:17)
[2017-11-25] MEDS: OMEPRAZOLE 20 MG CAP PO ×2 (09:17→20:33)
[2017-11-25] MEDS: LISINOPRIL 20 MG TAB PO (09:17)
[2017-11-25] MEDS: CARVedilol 3.125 MG TAB PO ×2 (09:20→20:32)
[2017-11-25] MEDS: NICOTINE 21MG/24HR 1 EA TRANSDERMAL TD (09:24)
[2017-11-25] MEDS: TIOTROPIUM INHALER/CAPSULE (SPIRIVA) INH (09:53)
[2017-11-25] MEDS: SYMBICORT 160/4.5MCG INHALER 6GM INH ×2 (09:54→20:53)
[2017-11-25] MEDS: LORazepam 1 MG TAB PO (16:39)
[2017-11-25] MEDS: ATORVASTATIN 20 MG TAB PO (20:32)
[2017-11-26] MEDS: IPRATROPIUM 0.5MG/ALBUTEROL 2.5MG INH SOL UD 3ML (DUONEB)(J7620) NEB ×4 (02:23→20:00)
[2017-11-26] MEDS: SLF 3 ML SYR IV ×3 (04:21→20:13)
[2017-11-26 05:12] LABS: EOS % 0.2 % (0.0-3.0); HEMATOCRIT 46.9 % (42.0-52.0); IMMATURE GRANULOCYTE % 0.2 % (0-3.0); LYMPH # 1.5 10^3/uL (1.5-4.5); LYMPH % 30.6 % (24.0-44.0); MEAN CORPUSCULAR VOLUME 90.5 fl (80.0-96.0); MONO % 20.5 % (0.0-5.0); NEUTROPHILS # 2.3 10^3/uL (1.8-7.7); NEUTROPHILS % 48.5 % (36.0-66.0); PLATELET COUNT, AUTOMATED 230 10^3/uL (150-450); RED BLOOD COUNT 5.18 10^6/uL (4.30-6.10); RED CELL DISTRIBUTION WIDTH 18.4 % (11.5-14.5); WHITE BLOOD COUNT 4.7 10^3/uL (4.0-10.0)
[2017-11-26 05:58] LABS: ANION GAP 2 MEQ/L (8-16); BLOOD UREA NITROGEN 29 MG/DL (7-18); CALCIUM LEVEL 8.9 MG/DL (8.8-10.2); CHLORIDE LEVEL 92 MEQ/L (98-107); GLOMERULAR FILTRATION RATE > 60.0 (>49); GLUCOSE, FASTING 85 MG/DL (70-100); MAGNESIUM LEVEL 2.1 MG/DL (1.8-2.4); NT-PRO BNP 955 PG/ML (<125); POTASSIUM SERUM 4.4 MEQ/L (3.5-5.1); SODIUM LEVEL 141 MEQ/L (136-145)
[2017-11-26 06:02] LABS: CARBON DIOXIDE LEVEL 47 MEQ/L (21-32)
[2017-11-26] MEDS: SYMBICORT 160/4.5MCG INHALER 6GM INH ×2 (07:31→20:21)
[2017-11-26] MEDS: TIOTROPIUM INHALER/CAPSULE (SPIRIVA) INH (07:31)
[2017-11-26] MEDS: THEOPHYLLINE (THEO-24) 100MG SR **CAPSULE PO ×2 (08:57→20:13)
[2017-11-26] MEDS: ASPIRIN 81 MG CHEW TABLET PO (08:57)
[2017-11-26] MEDS: LISINOPRIL 20 MG TAB PO (08:57)
[2017-11-26] MEDS: MAGNESIUM GLUCONATE 500 MG TAB PO ×2 (08:57→20:12)
[2017-11-26] MEDS: CARVedilol 3.125 MG TAB PO ×2 (08:58→20:12)
[2017-11-26] MEDS: SPIRONOLACTONE 25 MG TAB PO (08:58)
[2017-11-26] MEDS: THIAMINE 100 MG TAB PO (08:58)
[2017-11-26] MEDS: MULTIVITAMINS/MINERALS THERAP 1 TAB PO (08:58)
[2017-11-26] MEDS: FOLIC ACID 1 MG TAB PO (08:58)
[2017-11-26] MEDS: DIVALPROEX 500 MG TAB PO ×2 (08:58→20:12)
[2017-11-26] MEDS: predniSONE 10 MG TAB PO (08:58)
[2017-11-26] MEDS: FAMOTIDINE 20 MG TAB PO ×2 (08:59→20:13)
[2017-11-26] MEDS: OMEPRAZOLE 20 MG CAP PO ×2 (08:59→20:12)
[2017-11-26] MEDS: PARoxetine 25 MG CR TAB (PAXIL CR) PO (08:59)
[2017-11-26] MEDS: FUROSEMIDE 40 MG/4 ML VIAL (J1940) IV ×2 (08:59→17:07)
[2017-11-26] MEDS: ENOXAPARIN 40 MG/0.4 ML SYRINGE (J1650) SC (09:00)
[2017-11-26] MEDS: NICOTINE 21MG/24HR 1 EA TRANSDERMAL TD (09:00)
[2017-11-26] MEDS: LORazepam 1 MG TAB PO (18:22)
[2017-11-26] MEDS: ATORVASTATIN 20 MG TAB PO (20:12)
[2017-11-27] MEDS: IPRATROPIUM 0.5MG/ALBUTEROL 2.5MG INH SOL UD 3ML (DUONEB)(J7620) NEB ×4 (01:24→20:00)
[2017-11-27] MEDS: PERCOCET 5MG/325MG TAB PO ×2 (04:27→19:51)
[2017-11-27] MEDS: SLF 3 ML SYR IV ×3 (04:28→22:00)
[2017-11-27 05:25] LABS: EOS % 0.6 % (0.0-3.0); HEMATOCRIT 42.3 % (42.0-52.0); HEMOGLOBIN 13.9 g/dl (13.5-17.5); IMMATURE GRANULOCYTE % 0.2 % (0-3.0); LYMPH # 1.6 10^3/uL (1.5-4.5); LYMPH % 31.9 % (24.0-44.0); MEAN CORPUSCULAR HEMOGLOBIN 29.2 pg (27.0-33.0); MEAN CORPUSCULAR HGB CONC 32.9 g/dl (32.0-36.5); MEAN CORPUSCULAR VOLUME 88.9 fl (80.0-96.0); MONO # 0.7 10^3/uL (0.0-0.8); MONO % 14.7 % (0.0-5.0); NEUTROPHILS # 2.6 10^3/uL (1.8-7.7); NEUTROPHILS % 52.6 % (36.0-66.0); PLATELET COUNT, AUTOMATED 214 10^3/uL (150-450); RED BLOOD COUNT 4.76 10^6/uL (4.30-6.10); RED CELL DISTRIBUTION WIDTH 17.7 % (11.5-14.5); WHITE BLOOD COUNT 4.9 10^3/uL (4.0-10.0)
[2017-11-27 06:09] LABS: ANION GAP 2 MEQ/L (8-16); BLOOD UREA NITROGEN 30 MG/DL (7-18); CALCIUM LEVEL 8.5 MG/DL (8.8-10.2); CHLORIDE LEVEL 88 MEQ/L (98-107); CREATININE FOR GFR 0.73 MG/DL (0.70-1.30); GLOMERULAR FILTRATION RATE > 60.0 (>49); GLUCOSE, FASTING 89 MG/DL (70-100); MAGNESIUM LEVEL 1.8 MG/DL (1.8-2.4); POTASSIUM SERUM 3.7 MEQ/L (3.5-5.1); SODIUM LEVEL 138 MEQ/L (136-145)
[2017-11-27 06:18] LABS: CARBON DIOXIDE LEVEL 48 MEQ/L (21-32)
[2017-11-27] MEDS: SYMBICORT 160/4.5MCG INHALER 6GM INH ×2 (07:34→20:28)
[2017-11-27] MEDS: TIOTROPIUM INHALER/CAPSULE (SPIRIVA) INH (07:34)
[2017-11-27] MEDS: NICOTINE 21MG/24HR 1 EA TRANSDERMAL TD (09:18)
[2017-11-27] MEDS: FUROSEMIDE 40 MG/4 ML VIAL (J1940) IV ×2 (09:18→17:10)
[2017-11-27] MEDS: ENOXAPARIN 40 MG/0.4 ML SYRINGE (J1650) SC (09:19)
[2017-11-27] MEDS: DIVALPROEX 500 MG TAB PO ×2 (09:19→19:48)
[2017-11-27] MEDS: FAMOTIDINE 20 MG TAB PO ×2 (09:19→19:48)
[2017-11-27] MEDS: MULTIVITAMINS/MINERALS THERAP 1 TAB PO (09:20)
[2017-11-27] MEDS: OMEPRAZOLE 20 MG CAP PO ×2 (09:20→19:48)
[2017-11-27] MEDS: FOLIC ACID 1 MG TAB PO (09:20)
[2017-11-27] MEDS: ASPIRIN 81 MG CHEW TABLET PO (09:20)
[2017-11-27] MEDS: SPIRONOLACTONE 25 MG TAB PO (09:20)
[2017-11-27] MEDS: THEOPHYLLINE (THEO-24) 100MG SR **CAPSULE PO ×2 (09:20→19:47)
[2017-11-27] MEDS: PARoxetine 25 MG CR TAB (PAXIL CR) PO (09:20)
[2017-11-27] MEDS: LISINOPRIL 20 MG TAB PO (09:20)
[2017-11-27] MEDS: CARVedilol 3.125 MG TAB PO ×2 (09:21→19:50)
[2017-11-27] MEDS: MAGNESIUM GLUCONATE 500 MG TAB PO ×2 (09:21→19:48)
[2017-11-27] MEDS: predniSONE 10 MG TAB PO (09:21)
[2017-11-27] MEDS: THIAMINE 100 MG TAB PO (09:21)
[2017-11-27] MEDS: LORazepam 1 MG TAB PO (18:37)
[2017-11-27] MEDS: ATORVASTATIN 20 MG TAB PO (19:48)
[2017-11-28] MEDS: IPRATROPIUM 0.5MG/ALBUTEROL 2.5MG INH SOL UD 3ML (DUONEB)(J7620) NEB ×3 (02:00→13:03)
[2017-11-28 05:26] LABS: EOS % 0.8 % (0.0-3.0); HEMATOCRIT 43.3 % (42.0-52.0); HEMOGLOBIN 14.2 g/dl (13.5-17.5); IMMATURE GRANULOCYTE % 0.2 % (0-3.0); LYMPH # 1.3 10^3/uL (1.5-4.5); LYMPH % 28.1 % (24.0-44.0); MEAN CORPUSCULAR HGB CONC 32.8 g/dl (32.0-36.5); MEAN CORPUSCULAR VOLUME 88.4 fl (80.0-96.0); MONO # 0.7 10^3/uL (0.0-0.8); MONO % 15.2 % (0.0-5.0); NEUTROPHILS # 2.6 10^3/uL (1.8-7.7); NEUTROPHILS % 55.7 % (36.0-66.0); PLATELET COUNT, AUTOMATED 206 10^3/uL (150-450); RED CELL DISTRIBUTION WIDTH 17.5 % (11.5-14.5); WHITE BLOOD COUNT 4.7 10^3/uL (4.0-10.0)
[2017-11-28 05:45] LABS: ANION GAP 3 MEQ/L (8-16); BLOOD UREA NITROGEN 19 MG/DL (7-18); CALCIUM LEVEL 8.6 MG/DL (8.8-10.2); CARBON DIOXIDE LEVEL 45 MEQ/L (21-32); CHLORIDE LEVEL 90 MEQ/L (98-107); CREATININE FOR GFR 0.61 MG/DL (0.70-1.30); GLOMERULAR FILTRATION RATE > 60.0 (>49); GLUCOSE, FASTING 87 MG/DL (70-100); POTASSIUM SERUM 3.8 MEQ/L (3.5-5.1); SODIUM LEVEL 138 MEQ/L (136-145)
[2017-11-28] MEDS: SLF 3 ML SYR IV ×2 (06:00→13:36)
[2017-11-28] MEDS: SYMBICORT 160/4.5MCG INHALER 6GM INH (07:23)
[2017-11-28] MEDS: TIOTROPIUM INHALER/CAPSULE (SPIRIVA) INH (07:23)
[2017-11-28] MEDS: MAGNESIUM GLUCONATE 500 MG TAB PO (09:02)
[2017-11-28] MEDS: predniSONE 10 MG TAB PO (09:04)
[2017-11-28] MEDS: ASPIRIN 81 MG CHEW TABLET PO (09:05)
[2017-11-28] MEDS: NICOTINE 21MG/24HR 1 EA TRANSDERMAL TD (09:05)
[2017-11-28] MEDS: OMEPRAZOLE 20 MG CAP PO (09:05)
[2017-11-28] MEDS: PARoxetine 25 MG CR TAB (PAXIL CR) PO (09:05)
[2017-11-28] MEDS: THEOPHYLLINE (THEO-24) 100MG SR **CAPSULE PO (09:06)
[2017-11-28] MEDS: LISINOPRIL 20 MG TAB PO (09:07)
[2017-11-28] MEDS: MULTIVITAMINS/MINERALS THERAP 1 TAB PO (09:07)
[2017-11-28] MEDS: SPIRONOLACTONE 25 MG TAB PO (09:07)
[2017-11-28] MEDS: THIAMINE 100 MG TAB PO (09:08)
[2017-11-28] MEDS: FAMOTIDINE 20 MG TAB PO (09:08)
[2017-11-28] MEDS: CARVedilol 3.125 MG TAB PO (09:09)
[2017-11-28] MEDS: FOLIC ACID 1 MG TAB PO (09:09)
[2017-11-28] MEDS: ENOXAPARIN 40 MG/0.4 ML SYRINGE (J1650) SC (09:10)
[2017-11-28] MEDS: DIVALPROEX 500 MG TAB PO (09:10)
[2017-11-28] MEDS: FUROSEMIDE 40 MG/4 ML VIAL (J1940) IV (09:11)
[2017-11-28] MEDS: PERCOCET 5MG/325MG TAB PO (12:15)
== END 2017-11-28 18:07 | disposition home or self-care (01) | DRG 194 ==
LOC: M PCU 19:25
DX: I11.0 Hypertensive heart disease with heart failure (principal); R64 Cachexia; I27.29 Other secondary pulmonary hypertension; Z99.81 Dependence on supplemental oxygen; J44.1 Chronic obstructive pulmonary disease with (acute) exacerbation; E83.42 Hypomagnesemia; F32.9 Major depressive disorder, single episode, unspecified; I50.43 Acute on chronic combined systolic (congestive) and diastolic (congestive) heart failure; I50.810 Right heart failure, unspecified; I08.1 Rheumatic disorders of both mitral and tricuspid valves; K21.9 Gastro-esophageal reflux disease without esophagitis; F10.10 Alcohol abuse, uncomplicated; R26.89 Other abnormalities of gait and mobility; R42 Dizziness and giddiness; G25.0 Essential tremor; F17.210 Nicotine dependence, cigarettes, uncomplicated; G43.909 Migraine, unspecified, not intractable, without status migrainosus; E87.6 Hypokalemia; Z79.899 Other long term (current) drug therapy

== ENCOUNTER 2018-12-16 13:20 | Inpatient (IN) | payer OTHER ==
[2018-12-16] VITALS (20 sets, daily range): BP systolic 71–110; BP diastolic 43–86; O2SAT 92
[~2018-12-16] VITALS: Ht 177.8 cm; Wt 60.0 kg
[~2018-12-16 13:20] MED LIST: ALDA25TA2 PO; ASPI-286 PO; ATOR1TAB21 PO; CARV3.12 PO; CEFD300CAP PO; DEPA1TAB3 PO; DIVA500T94 PO; FAMO20TA PO; FOLI1TAB11 PO; FURO40TA2 PO; INCR1INH INH; LISI-538 PO; LORA1TAB12 PO; MAGN50TA PO; NICO21DI34 TD; OMEP40CA97 PO; ONDA4TAB6 SL; PARO25TA PO; PRED10TA2 PO; SYMB16INH INH; THEO200T11 PO; THEO400T PO; THIA100T7 PO; THIA100TA PO; VENTAER INH; VITA100054 PO; VITA50005 PO; VITMTA PO
[2018-12-16] MEDS ORDERED: SODIUM CHLORIDE 0.9% 1000ML IV ONE ×3 (15:00→17:00)
[2018-12-16] MEDS ORDERED: ATOR40TA75 PO (16:01)
[2018-12-16] MEDS ORDERED: CARV3.12 PO (16:01)
[2018-12-16] MEDS ORDERED: FURO40TA2 PO (16:01)
[2018-12-16] MEDS ORDERED: VITA500045 PO (16:01)
[2018-12-16] MEDS ORDERED: MAGN1CAP PO (16:01)
[2018-12-16] MEDS ORDERED: LISI-1046 PO (16:01)
[2018-12-16] MEDS ORDERED: ALBU8.5H INH (16:01)
[2018-12-16] MEDS ORDERED: TRAM50TA2 PO (16:01)
[2018-12-16] MEDS ORDERED: OMEP-221 PO (16:01)
[2018-12-16] MEDS ORDERED: LORA1TAB12 PO (16:01)
[2018-12-16] MEDS ORDERED: FOLI1TAB11 PO (16:01)
[2018-12-16] MEDS ORDERED: GABA-1171 PO (16:01)
[2018-12-16] MEDS ORDERED: MULTTAB4 PO (16:01)
[2018-12-16] MEDS ORDERED: PARO25TA4 PO (16:01)
[2018-12-16] MEDS ORDERED: THEO400T4 PO (16:01)
[2018-12-16] MEDS ORDERED: ASPI-226 PO (16:01)
[2018-12-16] MEDS ORDERED: LEVO1INJ3 IV (16:03)
[2018-12-16] MEDS ORDERED: SYMB16INH INH (16:03)
[2018-12-16] MEDS ORDERED: [UNRECOGNIZED DRUG - CODE] IM (16:03)
[2018-12-16] MEDS ORDERED: INSUR SC (16:03)
[2018-12-16] MEDS ORDERED: INCR1INH INH (16:04)
[2018-12-16 16:10] LABS: ABG BASE EXCESS 0.7 (-2.0-2.0); ABG HCO3 32.6 MEQ/L (22.0-26.0); ABG O2 SATURATION 91.6 % (95.0-99.0); ABG PARTIAL PRESSURE O2 72.5 mmHg (75.0-100.0); ABG STANDARD HCO3 24.9 MEQ/L (22.0-26.0); ABG TOTAL CO2 35.6 MEQ/L (23.0-31.0)
[2018-12-16 16:11] LABS: ABG PARTIAL PRESSURE CO2 99.2 mmHg (35.0-45.0); ABG pH (ARTERIAL) 7.134 UNITS (7.350-7.450)
[2018-12-16] MEDS ORDERED: IPRATROPIUM 0.5MG/ALBUTEROL 2.5MG INH SOL UD 3ML (DUONEB)(J7620) NEB PRN (16:15)
[2018-12-16] MEDS ORDERED: NOREPINEPHRINE BITARTRATE 8 MG in D5W 492 ML IV SCH ×2 (16:15→21:00)
--- NOTE | 2018-12-16 16:22 | REP ---
Portable chest, 03:57 p.m., single AP view with the patient upright: Comparison is 11/22/2017. There are chronic interstitial changes. There are no infiltrates. The left costophrenic angle is mildly effaced suggestive of a small left pleural effusion. Cardiac size is normal. The kourtney, mediastinum, skeletal structures are unremarkable. Impression: Question small left pleural effusion. Chronic interstitial changes. Electronically Signed by Saturnino Mclaughlin MD 12/16/2018 04:14 P
[2018-12-16 16:26] LABS: HEMATOCRIT 38.1 % (42.0-52.0); HEMOGLOBIN 11.5 g/dl (13.5-17.5); MEAN CORPUSCULAR HGB CONC 30.2 g/dl (32.0-36.5); MEAN CORPUSCULAR VOLUME 92.9 fl (80.0-96.0); PLATELET COUNT, AUTOMATED 280 10^3/uL (150-450); WHITE BLOOD COUNT 10.6 10^3/uL (4.0-10.0)
[2018-12-16] MEDS ORDERED: GLUCOSE 4 GM CHEW TABLET PO PRN (16:30)
[2018-12-16] MEDS ORDERED: GLUCAGON FOR INJ 1 MG VIAL (J1610) SC PRN (16:30)
[2018-12-16] MEDS ORDERED: HYDROCORTISONE 100 MG/2 ML VIAL (J1720) IV ONE (16:30)
[2018-12-16] MEDS ORDERED: methylPREDNISolone INJ 125 MG/2 ML VIAL (J2930) IV ONE (16:30)
[2018-12-16] MEDS ORDERED: DEXTROSE 50% 50 ML SYRINGE IV PRN (16:30)
[2018-12-16 16:48] LABS: ATYPICAL LYMPH 4 % (0-5); HYPOCHROMASIA 1+; LYMPHOCYTES 12 % (16-44); MONOCYTES 17 % (0-5); NEUTROPHILS 66 % (28-66); PLATELET ESTIMATE NORMAL (NORMAL)
[2018-12-16 16:49] LABS: POLYCHROMASIA 1+
[2018-12-16] MEDS ORDERED: PANTOPRAZOLE 40MG INJ (PROTONIX) (C9113) IV SCH (17:00)
[2018-12-16 17:03] LABS: INR 1.19; PROTHROMBIN TIME 14.8 SECONDS (11.8-14.0)
[2018-12-16 17:20] LABS: ALBUMIN 3.3 GM/DL (3.2-5.2); ALT/SGPT 612 U/L (12-78); BILIRUBIN,TOTAL 0.4 MG/DL (0.2-1.0); BLOOD UREA NITROGEN 36 MG/DL (7-18); CALCIUM LEVEL 7.7 MG/DL (8.8-10.2); CARBON DIOXIDE LEVEL 31 MEQ/L (21-32); CHLORIDE LEVEL 93 MEQ/L (98-107); CK-MB VALUE MASS 7.6 NG/ML (<3.6); CPK CREATINE PHOSPHOKINASE 117 U/L (39-308); CREATININE FOR GFR 2.96 MG/DL (0.70-1.30); GLUCOSE, FASTING 77 MG/DL (70-100); MAGNESIUM LEVEL 1.6 MG/DL (1.8-2.4); SODIUM LEVEL 127 MEQ/L (136-145); TOTAL PROTEIN 6.8 GM/DL (6.4-8.2); TROPONIN I 3.76 NG/ML (< 0.10)
[2018-12-16] MEDS ORDERED: HumaLOG INSULIN (NovoLOG) PER UNIT SC SCH ×2 (17:30→21:00)
[2018-12-16 17:46] LABS: FREE T4 1.03 NG/DL (0.76-1.46); POTASSIUM SERUM 5.1 MEQ/L (3.5-5.1)
[2018-12-16 17:47] LABS: OSMOLALITY SERUM 288 MOSM/KG (280-301)
[2018-12-16] MEDS ORDERED: ASPIRIN 81 MG CHEW TABLET PO ONE (18:00)
[2018-12-16 18:20] LABS: AMPHETAMINES URINE REFLEX NEGATIVE (NEGATIVE); BARBITURATES URINE REFLEX NEGATIVE (NEGATIVE); BENZODIAZEPINES URINE REFLEX NEGATIVE (NEGATIVE); CANNABINOIDS URINE REFLEX NEGATIVE (NEGATIVE); COCAINE METABOLITE URINE REFLE NEGATIVE (NEGATIVE); METHADONE URINE REFLEX NEGATIVE (NEGATIVE); OPIATES URINE REFLEX NEGATIVE (NEGATIVE); PHENCYCLIDINE URINE REFLEX NEGATIVE (NEGATIVE)
[2018-12-16 18:22] LABS: POTASSIUM RANDOM URINE 51.8 MEQ/L
[2018-12-16] MEDS: FOLIC ACID 1 MG in NS 50 ML IV SCH (18:25)
[2018-12-16] MEDS: MAG SULF 1GM/100ML (MAG RUN) 1 GM in IV 1 EA IV SCH ×2 (18:25→19:26)
[2018-12-16 18:49] LABS: ABG BASE EXCESS -4.7 (-2.0-2.0); ABG HCO3 26.7 MEQ/L (22.0-26.0); ABG O2 SATURATION 96.4 % (95.0-99.0); ABG PARTIAL PRESSURE O2 99.9 mmHg (75.0-100.0); ABG STANDARD HCO3 20.5 MEQ/L (22.0-26.0); ABG TOTAL CO2 29.4 MEQ/L (23.0-31.0)
[2018-12-16 18:51] LABS: ABG pH (ARTERIAL) 7.103 UNITS (7.350-7.450)
[2018-12-16 18:52] LABS: ABG PARTIAL PRESSURE CO2 87.5 mmHg (35.0-45.0)
[2018-12-16] MEDS: NS 1,000 ML IV SCH (19:25)
[2018-12-16 19:38] LABS: CK-MB VALUE MASS 8.2 NG/ML (<3.6); MB/CK RELATIVE INDEX 8.45 (< OR =4); TROPONIN I 4.03 NG/ML (< 0.10)
--- NOTE | 2018-12-16 19:53 | HPEPDOC ---
[facility] Medical History & Physical Date of Admission Dec 16, 2018 Date of Service: Dec 16, 2018 Attending Physician: SLY NELSON MD History and Physical CHIEF COMPLAINT: Diarrhea, hypotension HISTORY OF PRESENT ILLNESS: [place] is a 63-year-old male who was admitted to [facility] as a direct admit transfer from [facility]. He initially presented to [facility] with a one-week history of diarrhea and reported altered mental status by his girlfriend. He was found by the hospitalist to be hypotensive and started on fluids for a total of 2 L. He is lab work was significant for elevated p otassium, BUN, creatinine, and transaminases, with a low sodium and chloride level. His lab work also showed a normal lactic acid level at 0.5. Lipase level was reported at 86. His blood pressure remained low and he was started on levothyroid at 8 mcg/ml on a peripheral line. Due to altered mental status, head CT was performed and is reported as negative. ABG was also performed and is reported at pH 7.2, PCO2 85, and PO2 81 while on 3 L of oxygen. The patient was then transferred to our hospital. Admission to our hospital, the patient is not completely oriented and answering questions in short questions. He states he feels "lousy". He reports he's been having 4-5 days of diarrhea with watery stools, but denies any blood in his stool. He states he does have some generalized abdominal pain but cannot specify a particular area on his abdomen. He denies any current shortness of breath, chest pain, palpitations. PAST MEDICAL HISTORY: 1. 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 Hypertension. 3. Pulmonary hypertension. 4. Chronic congestive heart failure, right sided. 5. GERD. 6. Depression. 7. History of TIA. 8. History of chronic alcohol abuse PAST SURGICAL HISTORY: 1. Hernia repair 2 2. Unspecified arm surgery SOCIAL HISTORY: Marital status: Girlfriend of many years lives with him, Stu Tobacco use: chronic for most of his life 1-2ppd, currently reports 1ppd ETOH: reports 1 beer per day, unsure if reliable Illicit/IV drug use: denies FAMILY HISTORY: General history of DM, CAD, COPD, alcoholism ALLERGIES: Please see below. REVIEW OF SYSTEMS: CONSTITUTIONAL: Denies fevers, chills, night sweats. HEENT: Denies change in vision, hearing. CARDIOVASCULAR:. Denies chest pain, palpitations, edema, lightheadedness. RESPIRATORY: Denies cough, wheezing, shortness of breath. GASTROINTESTINAL: Endorses abdominal pain, diarrhea. Denies nausea, vomiting, blood in stool. GENITOURINARY: Denies dysuria, urinary frequency. SKIN: Denies rashes MUSCULOSKELETAL: Denies recent trauma/injury NEUROLOGICAL: Endorses generalized weakness. Denies headache, dizziness PSYCHIATRIC: Denies confusion, change in mood HOME MEDICATIONS: Please see below. PHYSICAL EXAMINATION: VITAL SIGNS: See below. GENERAL: Lying in bed, appears alert, in mild distress, appears disheveled. HEENT: Normocephalic, atraumatic, PERRLA, EOMI, dry mucous membranes NECK: Supple, trachea midline, no lymphadenopathy, no JVD CARDIOVASCULAR: tachycardic with regular rhythm, normal S1 and S2. No murmurs, rubs, or gallops appreciated RESPIRATORY: Diffuse expiratory wheezing throughout bilateral lungs with equal air entry bilaterally. No rhonchi or rales. ABDOMEN: Mildly tender throughout the abdomen to deep palpation, soft, nondistended, bowel sounds present, no masses or hepatosplenomegaly appreciated EXTREMITIES: No cyanosis or edema. Pulses thready 1/4 in bilateral upper and lower extremities SKIN: [place], warm, dry NEUROLOGIC: Alert and oriented only to person, that he is in the hospital, and the month, cannot identify which hospital or city, cannot identify year, day, or who is president. Not oriented to situation. Follows directions. Strength intact in bilateral upper and lower extremities. No focal deficits appreciated. PSYCHIATRIC: Mood and affect appropriate given level of orientation LABORATORY DATA: See below. IMAGING: CXR 12/16/2018: Question small left pleural effusion. Chronic interstitial changes. MICROBIOLOGY: Please see below. ASSESSMENT: 63-year-old male with past medical history of end-stage COPD, hypertension, chronic alcohol abuse, and right-sided CHF presents with one-week history of diarrhea, found to be hypotensive, likely secondary to hypovolemia, found to have respiratory acidosis likely secondary to COPD exacerbation PLAN: # Shock possibly hypovolemic 2/2 volume loss from diarrhea, possibly 2/2 adrenal insufficiency, less likely septic 2/2 infection, less likely cardiogenic - Patient received 2 L of fluid at [facility] and has since received another 3 L of fluid here with stabilization of blood pressure. - Continued on maintenance fluids NS 125 mL per hour. No indication for pressors at this time as he is fluid responsive. - Patient started on loading dose of Solu-Medrol of 125 mg for possible adrenal insufficiency and likely acute exacerbation of COPD - r/o infection: lactic acid 1.2, blood cx x2 pending, urine cx pending, CXR negative for acute infection, GI panel pending, - respiratory panel pending, procalcitonin pending - r/o adrenal insufficiency: cortisol level pending, if low consider ACTH stimulation testing # Acute on chronic hypercarbic respiratory failure with respiratory acidosis - hx of end stage COPD, likely exacerbated by pt being acutely ill with diarrhea and subsequent dehydration - On BiPAP, pulmonology consult did appreciate their input and recommendations - Initial ABG with pH 7.134 and pCO2 99.2. Repeat ABG per pulmonology. # Diarrhea - GI panel pending, consider abd/pelvis CT if pain worsens - no antibiotics at this time # LOPEZ likely 2/2 hypotension - Cr 2.96, BUN 36 - normal BUN and Cr one year ago, no history of CKD - trend Cr and BUN, expect improvement with rehydration # Acute COPD exacerbation -likely exacerbated by pt being acutely ill with diarrhea and subsequent dehydration - respiratory panel pending, procalcitonin pending - started on steroids with IV solumedrol 125mg loading dose - once off bipap can start scheduled duonebs and continue home inhalers # Electrolyte imbalance - on IV fluids for hypotension with NS - hyponatremia: urine electrolytes pending, urine osmolality pending, serum osmolality pending, TSH and free T4 normal - hypomagnesemia: replaced with IV magrun x1 - trend serial BMPs # Elevated troponins - cardiology consulted, appreciate their input and recommendations - EKG was compared to prior - without any significant change - however RBBB persists - trend cardiac markers q6h - Discussed with Dr. Calhoun, cardiology; possible demand ischemia given profound hypotension - However, given hypotoension - will hold BB, JOSE-I, Nitroglycerin - Will hold statin given transaminitis - Patient had a small episode of rectal bleeding while in the ICU; will hold full anticoagulation - However at this time will give one time dose of aspirin 324mg * Possible GI bleed - patient has had an episode of rectal bleeding while in the ICU; small red mucoid rectal output - Will continue to follow H&H - Remain NPO - Will hold off on full anticoagulation - Patient has been consented for blood transfusion via HCP # Transaminitis - possibly 2/2 alcoholism, possibly 2/2 hypotension, possibly 2/2 infection - hepatitis panel pending - trend LFTs - ammonia level normal # hx of HTN - hold home medications in the setting of hypotension # Suspected alcoholism - CIWA protocol, supplement thiamin, folate, and multivitamin - check alcohol levels, if low can d/c CIWA # right sided CHF - No evidence of acute exacerbation - hold home medications in the setting of hypotension # NPO diet - FSBS q6h with hypoglycemic protocol, consider adding D5 to fluids if hypoglycemic - may advance diet as tolerated when off BiPAP Stress Ulcer prophylaxis: IV protonix 40 mg BID DVT prophylaxis: heparin sc 5000 q8h Vital Signs Vital Signs Date Time Temp Pulse Resp B/P (MAP) Pulse Ox O2 Delivery O2 Flow Rate FiO2 12/16/18 17:15 95 20 99/55 (74) 93 NIPPV (BIPAP/CPAP) 35 12/16/18 16:30 2.0 12/16/18 15:07 98.1 Laboratory Data Labs 24H Laboratory Tests 2 12/16/18 16:05: Blood Gas Bicarbonate Standard 24.9, Arterial Blood pH 7.134*L, Arterial Blood Partial Pressure CO2 99.2*H, Arterial Blood Partial Pressure O2 72.5L, Arterial Blood Total CO2 35.6H, Arterial Blood HCO3 32.6H, Arterial Blood Base Excess 0.7, Arterial Blood Oxygen Saturation 91.6L, Carboxyhemoglobin 4.8H 12/16/18 16:19: Monocytes # (Auto) , Nucleated Red Blood Cells % (auto) 0.3H, Neutrophils 66, Band Neutrophils 1, Lymphocytes (Manual) 12L, Monocytes (Manual) 17H, Atypical Lymphocytes 4, Polychromasia 1+, Hypochromasia 1+, Platelet Estimate NORMAL, Anion Gap 3L, Glomerular Filtration Rate 23.0L, Calcium Level 7.7L, Magnesium Level 1.6L, Total Bilirubin 0.4, Aspartate Amino Transf (AST/SGOT) 536H, Alanine Aminotransferase (ALT/SGPT) 612H, Alkaline Phosphatase 111, Total Creatine Kinase 117, Creatine Kinase MB 7.6H, Creatine Kinase MB Relative Index 6.50H, Troponin I 3.76*H, Total Protein 6.8, Albumin 3.3, Albumin/Globulin Ratio 0.94L 12/16/18 16:42: Osmolality 288, Thyroid Stimulating Hormone (TSH) 3.300, Free Thyroxine 1.03 12/16/18 16:43: Prothrombin Time 14.8H, Prothromb Time International Ratio 1.19, Lactic Acid Level 1.2, Ammonia 18 12/16/18 16:45: 12/16/18 17:34: Urine Color YELLOW, Urine Appearance CLOUDYH, Urine pH 5.0, Urine Specific [place] 1.022, Urine Protein 3+H, Urine Glucose (UA) NEGATIVE, Urine Ketones NEGATIVE, Urine Blood 3+H, Urine Nitrite NEGATIVE, Urine Bilirubin NEGATIVE, Urine Urobilinogen 0.2, Urine Leukocyte Esterase 3+H, Urine WBC (Auto) 67H, Urine RBC (Auto) 140H, Urine Hyaline Casts (Auto) 2, Urine Bacteria (Auto) 1+H, Urine Squamous Epithelial Cells 2, Urine Amorphous Sediment SMALLH, Urine Mucus (Auto) SMALL, Urine Sperm (Auto) 12/16/18 17:54: CBC/BMP Laboratory Tests 12/16/18 16:19 12/16/18 16:42 Microbiology Microbiology 12/16/18 Urine Culture, Received Pending 12/16/18 Blood Culture, Received Pending 12/16/18 Respiratory Virus Panel (PCR) (HALEY), Received Pending 12/16/18 Blood Culture, Received Pending Home Medications Scheduled Aspirin (Aspirin EC) 81 Mg Tablet.dr, 81 MG PO DAILY Atorvastatin Calcium (Atorvastatin Calcium) 40 Mg Tablet, 40 MG PO QHS Budesonide/Formoterol (Symbicort 160-4.5 Mcg Inhaler) 6 Gm Hfa.aer.ad, 2 PUFF INH BID Carvedilol (Carvedilol) 3.125 Mg Tablet, 3.125 MG PO BID Ergocalciferol (Vitamin D2) (Vitamin D2) 50,000 Unit Capsule, 50,000 UNIT PO QWEEK MONDAYS Folic Acid (Folic Acid) 1 Mg Tablet, 1 MG PO DAILY Furosemide (Furosemide) 40 Mg Tablet, 40 MG PO DAILY Gabapentin (Gabapentin) 100 Mg Capsule, 100 MG PO QHS Insulin Human Regular (Novolin R) 100 Unit/1 Ml Vial, 5 UNITS SC ASDIRECTED STARTED AT [facility] Lisinopril (Lisinopril) 2.5 Mg Tablet, 2.5 MG PO DAILY Magnesium Oxide (Magnesium) 500 Mg Capsule, 500 MG PO DAILY Multivitamin (Multivitamins) 1 Each Tablet, 1 TAB PO DAILY Norepinephrine Bitartrate (Levophed Bitartrate) 1 Mg/1 Ml Vial, 4 MG IV ASDIRECTED STARTED AT [facility] Omeprazole (Omeprazole) 40 Mg Capsule.dr, 40 MG PO DAILY PARoxetine HCl (Paroxetine Cr) 25 Mg Tab.er.24h, 25 MG PO DAILY Theophylline Anhydrous (Theophylline) 400 Mg Tab.er.24h, 200 MG PO BID Thiamine HCl (Thiamine HCl) 100 Mg/1 Ml Vial, 100 MG IM ASDIRECTED RECEIVED AT [facility] Umeclidinium [place] (Incruse Ellipta) 62.5 Mcg Blst.w.dev, 62.5 MCG INH DAILY Scheduled PRN Albuterol Sulfate (Albuterol Sulfate Hfa) 8.5 Gm Hfa.aer.ad, 2 PUFF INH Q6H PRN for SHORTNESS OF BREATH Lorazepam (Lorazepam) 1 Mg Tablet, 1 MG PO Q8H PRN for ANXIETY Tramadol HCl (Tramadol HCl) 50 Mg Tablet, 50 MG PO BID PRN for PAIN Allergies Coded Allergies: No Known Allergies (Unverified , 11/01/17) A-FIB/CHADSVASC A-FIB History Current/History of A-Fib/PAF?: No Current PO Anticoag Therapy: No GME ATTESTATION GME ATTESTATION My faculty preceptor for this patient encounter was physically present during the encounter and was fully available. All aspects of the patient interview, examination, medical decision making process, and medical care plan development were reviewed and approved by the faculty preceptor. The faculty preceptor is aware and concurs with the plan as stated in the body of this note and will attest to such by his/her cosignature. ATTENDING NOTE I, Sly Nelson, have independently examined this patient and performed my own physical exam, as well as reviewed the documentation and edited where necessary. I have discussed in detail with the resident / student the findings and plan of treatment as documented by the resident / student and edited their note. I agree with their findings and treatment plan and have edited their documentation. I will continue to follow the patient during this hospital stay. ANDREW GUY PGY-1 Dec 16, 2018 19:51 SLY NELSON MD Dec 16, 2018 20:34
[2018-12-16 20:25] LABS: ETHYL ALCOHOL (ETHANOL) < 0.003 % (0.000-0.010)
[2018-12-16] MEDS: PANTOPRAZOLE 40MG INJ (PROTONIX) (C9113) IV SCH (20:33)
[2018-12-16 20:54] LABS: ABG BASE EXCESS -3.8 (-2.0-2.0); ABG HCO3 27.5 MEQ/L (22.0-26.0); ABG MODE OF VENT 16/6 14; ABG STANDARD HCO3 20.8 MEQ/L (22.0-26.0); ABG TOTAL CO2 30.2 MEQ/L (23.0-31.0)
[2018-12-16 20:55] LABS: ABG PARTIAL PRESSURE CO2 88.8 mmHg (35.0-45.0); ABG pH (ARTERIAL) 7.109 UNITS (7.350-7.450)
[2018-12-16 20:56] LABS: ABG PARTIAL PRESSURE O2 41.6 mmHg (75.0-100.0)
[2018-12-16] MEDS ORDERED: NS 1,000 ML IV ONE (21:00)
[2018-12-16] MEDS: MEROPENEM INJ 500 MG in IV 1 EA IV SCH (22:00)
[2018-12-16] MEDS: HEPARIN SOD (PORCINE) 5000 UNITS/ML VIAL SQ SCH (22:02)
[2018-12-16 22:08] LABS: HEMATOCRIT 39.7 % (42.0-52.0); HEMOGLOBIN 11.9 g/dl (13.5-17.5); MEAN CORPUSCULAR HEMOGLOBIN 28.2 pg (27.0-33.0); MEAN CORPUSCULAR VOLUME 94.1 fl (80.0-96.0); PLATELET COUNT, AUTOMATED 279 10^3/uL (150-450); RED BLOOD COUNT 4.22 10^6/uL (4.30-6.10); WHITE BLOOD COUNT 13.2 10^3/uL (4.0-10.0)
[2018-12-16 22:33] LABS: ALBUMIN 3.4 GM/DL (3.2-5.2); BILIRUBIN,TOTAL 0.4 MG/DL (0.2-1.0); CALCIUM LEVEL 7.1 MG/DL (8.8-10.2); CK-MB VALUE MASS 7.2 NG/ML (<3.6); CREATININE FOR GFR 2.81 MG/DL (0.70-1.30); GLOMERULAR FILTRATION RATE 24.5 (>49); MB/CK RELATIVE INDEX 7.27 (< OR =4); POTASSIUM SERUM 5.5 MEQ/L (3.5-5.1); TOTAL PROTEIN 6.4 GM/DL (6.4-8.2); TROPONIN I 3.57 NG/ML (< 0.10)
[2018-12-16 23:46] LABS: ABG BASE EXCESS -3.4 (-2.0-2.0); ABG HCO3 26.7 MEQ/L (22.0-26.0); ABG O2 SATURATION 93.1 % (95.0-99.0); ABG STANDARD HCO3 21.6 MEQ/L (22.0-26.0); ABG TOTAL CO2 29.1 MEQ/L (23.0-31.0)
[2018-12-16 23:49] LABS: ABG pH (ARTERIAL) 7.164 UNITS (7.350-7.450)
[2018-12-17] VITALS (23 sets, daily range): BP systolic 90–174; BP diastolic 43–113
[2018-12-17] MEDS: NS 1,000 ML IV SCH ×3 (02:12→17:47)
[2018-12-17 05:02] LABS: CK-MB VALUE MASS 4.8 NG/ML (<3.6); MB/CK RELATIVE INDEX 7.27 (< OR =4); TROPONIN I 3.07 NG/ML (< 0.10)
[2018-12-17] MEDS: HEPARIN SOD (PORCINE) 5000 UNITS/ML VIAL SQ SCH ×3 (05:02→20:59)
--- NOTE | 2018-12-17 07:07 | RO ---
DATE OF PROCEDURE: 12/16/2018 PROCEDURE: Right femoral TLC placement. PREOPERATIVE DIAGNOSIS: Hypotension and need for vasopressor uses. POSTOPERATIVE DIAGNOSIS: Hypotension and need for vasopressor uses. SURGEON: Dr. Steiner NURSES SUPERINTENDENT: Dr. Stafford PROCEDURE: Procedure was considered emergent. [place] procedure was followed. Following this the right groin region was prepped and draped in sterile fashion. The femoral vein was locate by ultrasound and using ultrasound guidance the vein was easily cannulated and the triple-lumen catheter was placed by the modified Seldinger technique can. All three lines flushed well. Tolerated well. MTDD
--- NOTE | 2018-12-17 07:15 | RO ---
DATE OF PROCEDURE: 12/16/2018 PREOPERATIVE DIAGNOSIS: Acidemia. Need for frequent blood pressure evaluations. POSTOPERATIVE DIAGNOSIS: Acidemia. Need for frequent blood pressure evaluations. PROCEDURE: RIght femoral artery placement. SURGEON: Dr. Faye Steiner PHOTOCOPYING EQUIPMENT MECHANIC: Dr. Cheryl Stafford ANESTHESIA: Local DESCRIPTION OF PROCEDURE: Procedure considered emergent. [place] procedures followed. The right groin had previously been prepped and draped in a sterile fashion for the right femoral triple lumen catheter (TLC). Both ultrasound and anatomy was used and despite being able to see the artery it could not be effectively cannulated. The pulse was then sterilely located by Doppler and was easily cannulated. The wire threaded easily and the arterial line was placed by the modified Seldinger technique and was sutured in place. A good waveform was seen. Tolerated well. MTDD
[2018-12-17 07:45] LABS: ABG BASE EXCESS -3.6 (-2.0-2.0); ABG HCO3 24.3 MEQ/L (22.0-26.0); ABG O2 SATURATION 94.6 % (95.0-99.0); ABG PARTIAL PRESSURE CO2 56.5 mmHg (35.0-45.0); ABG PARTIAL PRESSURE O2 78.8 mmHg (75.0-100.0); ABG STANDARD HCO3 21.5 MEQ/L (22.0-26.0); ABG pH (ARTERIAL) 7.251 UNITS (7.350-7.450)
[2018-12-17 07:49] LABS: BASO % 0.1 % (0.0-1.0); EOS % 0.1 % (0.0-3.0); HEMATOCRIT 36.3 % (42.0-52.0); HEMOGLOBIN 11.4 g/dl (13.5-17.5); LYMPH % 2.8 % (24.0-44.0); MEAN CORPUSCULAR HEMOGLOBIN 28.3 pg (27.0-33.0); MEAN CORPUSCULAR HGB CONC 31.4 g/dl (32.0-36.5); MEAN CORPUSCULAR VOLUME 90.1 fl (80.0-96.0); MONO # 0.7 10^3/uL (0.0-0.8); MONO % 8.1 % (0.0-5.0); NEUTROPHILS # 7.2 10^3/uL (1.5-8.5); NEUTROPHILS % 88.7 % (36.0-66.0); PLATELET COUNT, AUTOMATED 276 10^3/uL (150-450); RED BLOOD COUNT 4.03 10^6/uL (4.30-6.10); WHITE BLOOD COUNT 8.2 10^3/uL (4.0-10.0)
--- NOTE | 2018-12-17 07:57 | REP ---
Portable chest, 07:17 a.m., single AP view with the patient semi upright: Comparison is 12/16/2018. The lung puentes are clear except for focal small zone of atelectasis versus parenchymal scarring adjacent to the cardiac apex. This is unchanged but was somewhat obscured on the prior study because of patient rotation. Cardiac size is upper normal. The kourtney, mediastinum, skeletal structures are unremarkable. The small left pleural effusion suspected previously is no longer identified. The Impression: Small focal zone of atelectasis versus parenchymal scarring adjacent to the cardiac apex Electronically Signed by Saturnino Mclaughlin MD 12/17/2018 07:48 A
[2018-12-17] MEDS ORDERED: methylPREDNISolone INJ 125 MG/2 ML VIAL (J2930) IV SCH (08:00)
[2018-12-17 08:14] LABS: ALBUMIN 3.1 GM/DL (3.2-5.2); BILIRUBIN,TOTAL 0.4 MG/DL (0.2-1.0); CALCIUM LEVEL 7.4 MG/DL (8.8-10.2); CREATININE FOR GFR 2.15 MG/DL (0.70-1.30); GLOMERULAR FILTRATION RATE 33.3 (>49); MAGNESIUM LEVEL 1.7 MG/DL (1.8-2.4); POTASSIUM SERUM 4.7 MEQ/L (3.5-5.1); TOTAL PROTEIN 5.8 GM/DL (6.4-8.2)
[2018-12-17 08:17] LABS: LYMPH # 0.2 10^3/uL (1.5-5.0)
[2018-12-17 08:17] LABS: CK-MB VALUE MASS 4.1 NG/ML (<3.6); MB/CK RELATIVE INDEX 6.12 (< OR =4); TROPONIN I 3.1 NG/ML (< 0.10)
[2018-12-17] MEDS: PANTOPRAZOLE 40MG INJ (PROTONIX) (C9113) IV SCH ×2 (08:42→20:09)
[2018-12-17] MEDS: THIAMINE HCL 200 MG/2 ML VIAL (J3411) IM SCH (08:43)
[2018-12-17] MEDS: MULTIVITAMINS/MINERALS THERAP 1 TAB PO SCH (08:43)
[2018-12-17] MEDS ORDERED: MAG SULF 1GM/100ML (MAG RUN) 1 GM in IV 1 EA IV ONE (08:45)
[2018-12-17] MEDS ORDERED: FOLIC ACID 1 MG TAB PO SCH (09:00)
[2018-12-17] MEDS ORDERED: THIAMINE 100 MG TAB PO SCH (09:00)
[2018-12-17] MEDS: MEROPENEM INJ 500 MG in IV 1 EA IV SCH ×2 (09:33→20:10)
[2018-12-17] MEDS ORDERED: ASPIRIN 325 MG TAB PO ONE (10:30)
--- NOTE | 2018-12-17 10:30 | IPNPDOC ---
Text Note Date of Service The patient was seen on 12/17/18. NOTE Subjective: Patient is a 63-year-old male with a PMHx of End Stage COPD ( on 2L NC), HTN, R Sided Chronic CHF, Hx of TIA, Pulmonary HTN, Hx of Alcohol abuse, Depression and GERD who presented as a transfer from [facility] for hypotension and hypercapnic raspatory failure. Upon arrival, patient was rather be hypotensive and required aggressive IV fluid hydration. Patient was also was on BiPAP support. It was suspected that the patient was having a COPD exacerbation. Overnight, patient has received a central line placement and an arterial line placement with Dr. Steiner. Currently, patient's blood pressure didn't significantly better. Patient was seen and examined at the bedside. Reports that his breathing is doing slightly better than yesterday. Patient denies any active chest pain, nausea, vomiting, abdominal pain. Patient has a Waite catheter in place. Objective: Vitals (See below) General: Lying in bed, comfortable, Awake / Alert, Oriented to person / time HEENT: NC, AT CVS: RRR, +S1S2 Lungs: Fair air entry b/l, -, wheezing appreciated at Her and lower lung puentes bilaterally. No rhonchi or crackles are noted Abdomen: Soft, ND, no abdominal tenderness is noted on palpation Extremities: - Edema, - Calf tenderness Assessment and plan: Hypotension / Shock - possibly 2/2 hypovolemic 2/2 volume loss from diarrhea, possibly 2/2 adrenal insufficiency, less likely septic 2/2 infection, unlikely 2/2 cardiogenic - Patient has received 2 L of fluid hydration at [facility]; received an additional 3 L bolus upon arrival - Patient's blood pressure initially had responded, however, had required central line placement and pressor support overnight - Currently, patient's blood pressure is doing significantly better while off pressor support - Cortisol levels collected - results pending (re: continues on corticosteroids) - c/w Broad spectrum antibiotics (Meropenem) and IV fluids - c/w Solumedrol (See below) Leukocytosis - likely 2/2 reactive etiology, less likely 2/2 infectious etiology - At [facility], patient had a normal white blood cell count without any fevers noted - Upon arrival at [facility], patient had an elevated WBC count; however again, remained afebrile - Patient did have some complaints of diffuse abdominal pain. However, CT scan was deferred given his hypotension - Clinically patient has not had any further episodes of diarrhea - Lactic acid has remained normal at several points - UA appears possibly infected - Urine cultures / Blood cultures remain pending - Respiratory panel negative - CXR 11/: Question small left pleural effusion. Chronic interstitial changes. - CXR /: Small focal zone of atelectasis versus parenchymal scarring adjacent to the cardiac apex - Will check CT abdomen / pelvis today - c/w Meropenem (Day #2) Acute on chronic hypercarbic respiratory failure with respiratory acidosis - likely 2/2 acute COPD exacerbation - Patient's breathing continues to improve - Physical dose reveal significant wheezing bilaterally - Patient serial ABGs have shown improvement acidosis and PCO2 retention - CXR without any evidence of pneumonia - s/p Solumedrol loading dose - c/w Solumedrol - c/w Inhaled therapy as ordered - c/w BIPAP - Pulmonary on consultation; appreciate their input Diarrhea; less likely 2/2 possible GI bleed - Patient has had an episode of rectal bleeding while in the ICU; small red mucoid rectal output - No further episodes have been noted - Hg has remained stable - GI panel pending - Remain NPO - c/w Protonix 40 IV BID - Patient has been consented for blood transfusion via HCP Acute renal failure - likely 2/2 pre-renal etiology - hypotension and hypovolemia - Patient appears to be at normal renal function last year - Creatinine on arrival was approximately less than 3; continued to improve throughout hospitalization - c/w IV fluid hydration Hyponatremia - likely 2/2 hypotonic hyponatremia - likely 2/2 hypovolemia, possibly 2/2 euvolemic etiologies - Patient's sodium has slowly improved throughout hospitalization - Clinically appears euvolemic still - TSH / Free T4 / Cortisol levels remain pending - c/w IV fluid hydration Hyperkalemia - Has improved with IV fluid hydration Elevated troponin - likely 2/2 demand ischemia - Currently patient denies any complaint of chest pain - EKG has been compared to prior and does not show any significant change. Does still reveal right bundle-branch block - Troponins have trended up to a peak of 4.03; however, have begun to trend down - Discussed ACS protocol with Cardiology; currently no BB, JOSE-I, Nitroglycerine given hypotension, no Statin given Transaminitis, no anticoagulation - given rectal bleed - ECHO pending - c/w aspirin 325 - Cardiology on consultation; appreciate their input Transaminitis - possibly 2/2 alcoholism, possibly 2/2 hypotension, possibly 2/2 infection - Has been trending down - ammonia level normal - hepatitis panel pending HTN - Home BP medications on hold in the setting of hypotension Suspected alcoholism - CIWA protocol, supplement thiamin, folate, and multivitamin Chronic systolic CHF - No evidence of acute exacerbation - ECHO 10/2017: EF 40%, - hold home medications in the setting of hypotension GI prophylaxis - c/w Protonix IV BID - See above DVT prophylaxis - c/w Heparin SQ VS,Fishbone, I+O VS, Fishbone, I+O Laboratory Tests 12/16/18 16:19 12/16/18 16:42 12/16/18 21:54 12/16/18 21:55 12/17/18 07:32 12/17/18 07:33 Vital Signs Date Time Temp Pulse Resp B/P (MAP) Pulse Ox O2 Delivery O2 Flow Rate FiO2 12/17/18 08:00 30 12/17/18 06:00 100 28 98/57 (71) 96 NIPPV (BIPAP/CPAP) 108/55 (76) 12/17/18 04:00 98.1 12/16/18 16:30 2.0 I&O- Last 24 Hours up to 6 AM 12/17/18 05:59 Intake Total 4940 ml Output Total 955 ml Balance 3985 ml BENEDICTO HAMPTON MD Dec 17, 2018 10:30
--- NOTE | 2018-12-17 11:17 | REP ---
CT of the abdomen and pelvis without IV or bowel contrast for diarrhea and diffuse abdominal discomfort: There are no comparisons. There are small bilateral pleural effusions within the visualized lower lung puentes. Cardiac size is enlarged. The unenhanced hepatic parenchyma is homogeneous. There is a small volume of ascites surrounding the liver and spleen, in the colic gutters and in the pelvis. There is fluid surrounding the gallbladder, likely ascites. The gallbladder is otherwise unremarkable. The unenhanced pancreas and spleen are unremarkable. The adrenals are unremarkable. The kidneys are unremarkable. The abdominal aorta is unremarkable except for occasional calcified atheroma. There is no bowel distension or obstruction. There is mild wall thickening of the descending colon and sigmoid colon. This is nonspecific but could represent colitis in the appropriate clinical setting. Pelvis: There is a small volume of ascites. The bladder is incompletely distended. There is a bladder catheter. The bladder cannot be further evaluated. No adenopathy. Impression: Small bilateral pleural effusions. Small volume of ascites. Mild wall thickening of the descending colon and sigmoid colon, nonspecific, but may represent colitis in the appropriate clinical setting. No bowel distension or obstruction. Electronically Signed by Saturnino Mclaughlin MD 12/17/2018 11:09 A
[2018-12-17 11:56] LABS: HEMOGLOBIN 11.6 g/dl (13.5-17.5)
--- NOTE | 2018-12-17 12:18 | ECGEPIP ---
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
--- NOTE | 2018-12-17 12:20 | ECGEPIP ---
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
[2018-12-17 13:06] LABS: ABG BASE EXCESS -3.2 (-2.0-2.0); ABG HCO3 24.5 MEQ/L (22.0-26.0); ABG O2 LITER FLOW 35%; ABG O2 SATURATION 96.2 % (95.0-99.0); ABG PARTIAL PRESSURE CO2 56.4 mmHg (35.0-45.0); ABG PARTIAL PRESSURE O2 89.5 mmHg (75.0-100.0); ABG STANDARD HCO3 21.7 MEQ/L (22.0-26.0); ABG TOTAL CO2 26.2 MEQ/L (23.0-31.0); ABG pH (ARTERIAL) 7.255 UNITS (7.350-7.450)
[2018-12-17 13:35] LABS: ETHYL ALCOHOL (ETHANOL) < 0.003 % (0.000-0.010)
[2018-12-17] MEDS: FOLIC ACID 1 MG in NS 50 ML IV SCH (17:47)
[2018-12-17 18:36] LABS: HEMATOCRIT 31.3 % (42.0-52.0); HEMOGLOBIN 9.7 g/dl (13.5-17.5)
[2018-12-17 19:08] LABS: MB/CK RELATIVE INDEX 5.13 (< OR =4); TROPONIN I 1.6 NG/ML (< 0.10)
--- NOTE | 2018-12-17 20:10 | CR ---
DATE OF CONSULTATION: 12/17/2018 I was asked by Dr. Nelson to emergently evaluate Mr. Spence for acute on chronic hypercapnic respiratory failure requiring noninvasive mechanical ventilation. HISTORY OF PRESENT ILLNESS: Mr. Spence is a 63-year-old male with a past medical history significant for chronic obstructive pulmonary disease (COPD) with hypoxemia and hypercapnia, moderate to severe pulmonary hypertension and systolic congestive heart failure with an ejection fraction (EF) of 40%, who presented to [facility] emergency department on Tuesday with a three day to one week history of nausea, emesis, and profuse diarrhea and altered mental statues. He was hypotensive and started on intravenous (IV) fluids. An arterial blood gas was performed, which showed a pH of around 7.2, with pCO2 of 85 and he was then transferred to [facility]. When he arrived here, he was hypotensive and it was felt the etiology of his hypotension was hypovolemia and it was not felt that he had sepsis. Complicating his hypotension is despite his diarrhea and emesis, he continued to take his outpatient medications, which consisted of furosemide, lisinopril, gabapentin, tramadol and lorazepam. ALLERGIES: No known drug allergies. MEDICATIONS: On admission include: - albuterol 2 puffs every 6 hours as needed - aspirin 81 mg by mouth daily - atorvastatin 40 mg by mouth at bedtime - Symbicort 160/4.5 two puffs twice a day - carvedilol 3.125 by mouth twice a day - vitamin D 50,000 units by mouth weekly - folic acid one by mouth daily - furosemide 40 mg by mouth daily - gabapentin 100 mg by mouth at bedtime - lisinopril 2.5 mg by mouth daily - lorazepam 1 mg by mouth every 8 hours as needed - magnesium oxide 500 mg by mouth daily - multivitamin one by mouth daily - omeprazole 40 mg by mouth daily - paroxetine 25 mg by mouth daily - theophylline 200 mg by mouth twice a day - tramadol 50 mg by mouth twice a day as needed - Incruse 1 puff daily. PAST MEDICAL HISTORY: 1. Chronic obstructive pulmonary disease (COPD) with hypoxemia and hypercapnia. 2. Systolic congestive heart failure (CHF) with an EF of around 40% 11/2017. 3. Moderate to severe pulmonary hypertension on echocardiogram 11/2017. 4. Hypertension. 5. Gastroesophageal reflux disease (GERD). 6. History of transient ischemic attack (TIA). 7. EtOH abuse. 8. Status post hernia repair times two. 9. Status post unspecified arm surgery. 10. Tobacco usage, ongoing. SOCIAL HISTORY: He lives with a girlfriend that he has had for 27 years named Stu. He has smoked 1-2 packs per day for most of his life, giving him a likely 45-90 pack-year history. He currently smokes one pack per day. He drinks at least 1 beer per day. No known illicit/IV drug use. He is disabled. 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 FAMILY HISTORY: Family history is notable for diabetes mellitus, coronary artery disease (CAD), COPD and alcoholism. REVIEW OF SYSTEMS: Unattainable secondary to the full face mask, noninvasive mechanical ventilator. What is known is contained in the history. The one exception is he did tell me had some urine output and that it was dark. PHYSICAL EXAMINATION: GENERAL: Mr. Spence is lying in bed with a full face mask noninvasive ventilator in place. He is synchronous with it and the settings are as a true ventilator. He responds to questions by nodding yes and no. He is tremulous, but more likely myoclonic jerks. VITAL SIGNS: Temperature 99.3 with a maximum temperature (T-max) of 99.5, pulse 105, respiratory rate 28, blood pressure 115/56, with a mean arterial pressure (MAP) of 79. SpO2 95% on FiO2 of 0.35. HEENT: Anicteric, pupils equal, round, and reactive to light and accommodation. Nares and oropharynx are not examined secondary to full-face mask. NECK: Supple, without apparent jugular venous distention (JVD), though difficult to exam. He does have elevated external jugular veins. Trachea is midline. LYMPHATICS: No cervical or supraclavicular lymphadenopathy. LUNGS: Symmetric excursion, generalized diminished air entry. No wheeze, rhonchi or significant crackle on tidal excursion. Prolonged expiratory phase. No accessory muscle usage or retractions. CARDIOVASCULAR: Tachycardiac, regular rhythm, no murmur, rub or gallop appreciated. ABDOMEN: Positive bowel sounds, soft, mild generalized tenderness, no guarding or rebound appreciated. No hepatosplenomegaly or masses appreciated. EXTREMITIES: Warm with a normal capillary refill. Weak bilateral pedal pulses. NEUROLOGIC: He has some twitches/jerks that were present last evening as well as today and unchanged. He is easily aroused and appears appropriate when he answers. LABORATORY DATA: Complete blood count (CBC) from this morning shows a hemoglobin of 11.4, hematocrit 36.3, platelet count 276,000, white blood cell count 8200. The differential of 89% neutrophils, 3% lymphocytes, 8% monocytes. Chemistry today shows a sodium 135, potassium 4.7, chloride 100, bicarbonate 28, anion gap 7, BUN 32, creatinine 2.2, glucose 79, lactic acid 7.4, magnesium 1.7. Total bilirubin 0.4, AST 347 (down from 491), ALT 543 (down from 603), and alkaline phosphate 107. Total protein 5.8, albumin 3.1. Troponin-I initially was 3.76 and currently is 3.1, with a maximum 4.03. Pertinent labs yesterday on admission included a potassium of 5.1, creatinine 3.0, bicarbonate 31, and chloride 93. His initial arterial blood gas was 7.13/99/73, with a measured saturation of 92% and a base excess of 0.7. After being started on noninvasive, his first blood gas was 7.1/88/100, with a measured saturation 96%, and a base excess of -4.7. His most recent arterial blood gas was 7.26/56/90, with a measured saturation of 96%, and a base excess of -3.2 this is with an FiO2 of 0.3. I reviewed his chest x-ray as well as report from yesterday as well as this morning. That x-ray showed normal-appearing cardiac silhouette and pulmonary vascular shadows. There are chronic interstitial markings. No acute infiltrate. There is evidence of hyperinflation. No change between the two x-rays. There is a small region of likely discoid atelectasis at the left base. IMPRESSION: 1. Acute and chronic hypercapnic respiratory failure. The acute portion appears to be secondary to decompensation from gi losses with the inability to compensate. A year ago on discharge, his bicarbonate was 45 and it was 31 on presentation here. His baseline pCO2 is likely in the 60-65 range. In addition to being a "can't breathe," he appeared to be "won't breath," as his respiratory rate was not appropriate for his acidemia. I suspect this is secondary to have taken some of his medications in the setting of renal and liver dysfunction. 2. Hypotension. I suspect this is hypovolemia secondary to gastrointestinal (GI) losses. No history or findings suggestive of sepsis. His lactic level was 1.2. There was no clear source of infection (he could have had a colitis). On presentation, he was not tachycardiac nor tachypneic. 3. Acute kidney failure likely secondary to dehydration and possibly acute tubular necrosis (ATN). 4. COPD with hypercapnia and hypoxemia. 5. Moderate to severe pulmonary hypertension 6. Chronic systolic heart failure with an EF of 40% a year ago. 7. EtOH abuse. 8. Tobacco usage, ongoing. RECOMMENDATIONS: 1. Because of his "won't breath" status, I changed his noninvasive mechanical ventilator to truly be a ventilator by having the set rate of 24, aiming for minute ventilation in the teens. 2. At the present time, any component related to his lungs is likely optimized, as his pCO2 is 55, which is below his baseline. Given his "can't breathe" status, he is unlikely be able to go significantly lower. The remainder of his difficulties appear to be metabolic in nature with loss of his respiratory compensation. I anticipate this will improve as his kidney function improves. 3. This morning, I tried to decrease his respiratory rate to see if he would intrinsically breathe appropriately and he did not, so we will keep him on full support at this time with frequent reevaluations. 4. I do not feel this is a COPD exacerbation. I discontinued his Solu-Medrol. I feel this is more likely a perturbation that he could not handle with his lung disease. 5. I feel it is reasonable to keep him on bronchodilators and we will restart his outpatient regimen as soon as he is able to. 6. We will continue to gently re-hydrate him. While the central venous pressure (CVP) is high, given his moderate to severe pulmonary hypertension, I suspect a CVP of 15 may even be low for him, as he may require more of a CVP of the 17-19 range. (Of note, his recent CVP is now 18 and likely appropriate). 7. Will need to monitor him for withdrawal. Recommend that he be placed on the CIWA protocol if he is not already. Also needs to be further defined as to what tremors he has at baseline from his girlfriend when she comes over to visit today, as she reported on the phone to one of the nurses that he shakes at baseline. Will need this to help determine where he may be in terms of alcohol withdrawal. 8. If he survives this admission, strongly recommend that he and his girlfriend fill out a healthcare proxy. Critical care time 45 minutes, not including procedure time. IVORY
[2018-12-17] MEDS ORDERED: ACETAMINOPHEN 650 MG SUPP PR PRN (20:45)
[2018-12-17] MEDS ORDERED: LORazepam 2 MG TAB PO PRN (20:45)
[2018-12-17] MEDS: LORazepam 2 MG/ML VIAL (J2060) IV PRN (21:00)
[2018-12-17 22:44] LABS: CK-MB VALUE MASS 2.9 NG/ML (<3.6); MB/CK RELATIVE INDEX 4.2 (< OR =4); TROPONIN I 2.22 NG/ML (< 0.10)
[2018-12-18] VITALS (26 sets, daily range): BP systolic 105–185; BP diastolic 59–156; PULSE 105–106; O2SAT 90–94
[2018-12-18 00:24] LABS: HEMOGLOBIN 10.8 g/dl (13.5-17.5)
[2018-12-18] MEDS: NS 1,000 ML IV SCH (02:31)
[2018-12-18] MEDS: LORazepam 2 MG/ML VIAL (J2060) IV PRN (04:34)
[2018-12-18 04:40] LABS: HEMATOCRIT 36.7 % (42.0-52.0); HEMOGLOBIN 11.1 g/dl (13.5-17.5); MEAN CORPUSCULAR HEMOGLOBIN 27.6 pg (27.0-33.0); MEAN CORPUSCULAR HGB CONC 30.2 g/dl (32.0-36.5); MEAN CORPUSCULAR VOLUME 91.3 fl (80.0-96.0); PLATELET COUNT, AUTOMATED 267 10^3/uL (150-450); RED BLOOD COUNT 4.02 10^6/uL (4.30-6.10); WHITE BLOOD COUNT 6.1 10^3/uL (4.0-10.0)
[2018-12-18 05:15] LABS: CALCIUM LEVEL 7.6 MG/DL (8.8-10.2); CK-MB VALUE MASS 2.7 NG/ML (<3.6); CREATININE FOR GFR 1.31 MG/DL (0.70-1.30); MB/CK RELATIVE INDEX 4.35 (< OR =4); POTASSIUM SERUM 4.4 MEQ/L (3.5-5.1); TROPONIN I 2.23 NG/ML (< 0.10)
[2018-12-18] MEDS: HEPARIN SOD (PORCINE) 5000 UNITS/ML VIAL SQ SCH ×3 (06:05→21:00)
--- NOTE | 2018-12-18 06:36 | ECHO ---
DATE OF SERVICE: 12/17/2018 DATE OF : 1955 AGE: 63 REFERRING PROVIDER: Sean Russell MD PATIENT LOCATION: Room 3209 REASON FOR STUDY: Abnormal serum troponin. 2D MEASUREMENTS: IVS: 0.9 cm LV: 4.0 cm LVPW: 0.9 cm LA: 3.5 cm Aorta: 2.8 cm RV: 4.3 cm Ascending aorta: 2.7 cm IVC: 2.6 cm DOPPLER MEASUREMENTS: Mitral E: 1.0 Mitral A: 1.2 with a ratio of 0.9 Maximum tricuspid valve velocity 3.2 m/s 2D COMMENTS: 1. Normal left ventricular size, wall thickness, and normal global left ventricular systolic function. The estimated ventricular systolic ejection fraction is 55-60%. 2. Normal left atrium. Dilated right atrium and right ventricle. The right ventricular free wall seems to be hypokinetic. 3. The atrial septum appeared to be normal without evidence of defect or shunt. 4. Normal aortic root. 5. Trace pericardial effusion noted, no evidence of cardiac tamponade. 6. Mildly calcified aortic valve with normal leaflet excursion. The mitral valve, and the tricuspid valve as well as the pulmonic valve appeared to be normal. The proximal pulmonary artery branches were not well visualized. 7. The inferior vena cava is mildly enlarged, central venous pressure might be elevated. DOPPLER: It detects trace aortic regurgitation, mild mitral regurgitation, and moderate tricuspid regurgitation. The calculated pulmonary artery systolic pressure varies between 50-60 mmHg. Abnormal relaxation pattern was noted across the mitral valve leaflets as well as the mitral valve annulus consistent with features of grade 1 left ventricular diastolic dysfunction. IMPRESSION: 1. Normal global left ventricular systolic function. There were some features of grade 1 left ventricular diastolic dysfunction manifested by abnormal relaxation. 2. Aortic valve sclerosis with trace aortic radiation. 3. Mild mitral regurgitation. 4. Moderate tricuspid regurgitation with dilated right atrium and right ventricle, and moderately severe pulmonary hypertension. 5. The inferior vena cava is mildly enlarged, central venous pressure might be elevated. 6. Trace pericardial effusion noted. 7. The most recent echocardiogram in the system was on 11/01/2017 and at that time, LVEF was estimated at 40%. MTDD
[2018-12-18 07:10] LABS: ABG BASE EXCESS -1.8 (-2.0-2.0); ABG HCO3 26.5 MEQ/L (22.0-26.0); ABG O2 SATURATION 95.3 % (95.0-99.0); ABG PARTIAL PRESSURE O2 83.7 mmHg (75.0-100.0); ABG TOTAL CO2 28.4 MEQ/L (23.0-31.0); ABG pH (ARTERIAL) 7.247 UNITS (7.350-7.450)
[2018-12-18 07:11] LABS: ABG PARTIAL PRESSURE CO2 62.2 mmHg (35.0-45.0)
--- NOTE | 2018-12-18 08:33 | CR ---
DATE OF CONSULTATION: 12/17/2008 REFERRING PROVIDER: Dr. Sharp. REASON FOR CONSULT: Abnormal serum troponin. HISTORY OF PRESENT ILLNESS: 63-year-old male well known by the office with a history of severe COPD for which he has been on oxygen supplement, left ventricular systolic dysfunction diagnosed by echocardiogram about a year ago, hypertension, TIA, as well EtOH abuse. Was transferred yesterday in the early evening hours from [facility]. He was found to be hypotensive. He presented there with a 1-week history of diarrhea and not eating well. He had altered mental status. He was found to be hypoxemic with underlying respiratory failure. He also was found to have a low serum sodium and abnormal LFTs. Serum troponin was reported to be 3.7. Cardiology consult was called. He was started on Levophed but when he arrived at the hospital he was off the Levophed and blood pressure was stable. He was started on tIV fluids. Mr. Spence was seen yesterday and it seemed this morning, his condition has improved significantly. He is more alert and awake contrary to yesterday in the evening when I saw him. Case was discussed with Dr. Sharp supportive care was recommended. His morning, he denies any chest pain. He still has some altered mental status with some forgetfulness. He stated he is not sure that he was taking the medication regularly. There is no report of fever or chills. There is no focal manifestation. PAST MEDICAL HISTORY: Positive for adverse COPD for which he has been on continuous nasal cannula at 2 liters a minute, hypertension, cannula at 2 liters on the, hypertension, cardiomegaly with a mildly to moderately depressed global left ventricular systolic function according to echocardiogram done in the fall of 2017, pulmonary hypertension that was reported moderately severe with right-sided failure, TIA, anxiety/depression, GERD, hyperlipidemia and history of EtOH abuse. PAST SURGICAL HISTORY: Positive for hernia repair times two. FAMILY HISTORY: Positive for CAD. MEDICATIONS AT HOME: Aspirin 81 mg by mouth daily, atorvastatin 40 mg by mouth daily, Symbicort, carvedilol 3.125 mg by mouth twice a day, folic acid 1 by mouth daily, Lasix 40 mg by mouth daily, gabapentin 100 mg by mouth, lisinopril 2.5 mg by mouth daily, magnesium oxide 500 mg by mouth daily, multivitamin 1 tablet daily, omeprazole 40 by mouth daily, paroxetine 25 mg by mouth daily, theophylline 400 mg tablets and 200 mg by mouth twice a day, thiamine 100 mg by mouth and Incrus Ellipta. Also on as needed medication albuterol, lorazepam, and tramadol. SOCIAL HISTORY: The patient lives with his girlfriend and he does smoke. He does have a history of EtOH abuse. ALLERGIES: NO KNOWN DRUG ALLERGIES. THE PATIENT IS A FULL CODE. PHYSICAL EXAMINATION: The patient is alert and awake in no acute distress at rest but appeared to be short of breath. Examination of the head: Pupils are equal and reactive. Neck is supple and no carotid wheeze. There is increased and jugular. Lungs: Revealed bilateral wheezing but no crackles. Heart exam, revealed regular heart sounds without gallops. The PMI is felt to be displaced inferiorly. There is no rub. Abdomen I could not appreciate any murmurs. Abdomen, soft but distended. Minimal tenderness noted at the palpitations. Extremtiies, bilateral lower leg edema. This neurological examination is negative for focal deficit. LABORATORY DATA: CBC done today revealed a WBC of 8.2, hemoglobin 11.4, hematocrit 36.3 and platelet 226,000. On admission the CBC revealed a WBC 10.6, hemoglobin 11.5 and hematocrit 38.1 and platelet 280,000. BMP done today revealed a sodium of 135, potassium 4.7, chloride 100, CO2 28, BUN 32, creatinine 2.15, GFR 33.3 and fasting glucose 79. Serum calcium was 7.4. Serum magnesium is 1.7. Liver enzyme today revealed an AST of 277, with an ALT of 543, total protein 5.8, albumin 3.1. Serum troponin was 3.76, 4.03, 3.57, 3.07, 3.10. AST of 491 and ALT 603. BMP on admission revealed a sodium of 133, potassium 5.5, chloride 100, CO2 27, BUN 33, creatinine 2.81, GFR 24.5, calcium 7.1. Serum lactic acid was 1.2. Serum TSH was 3.3. BMP on admission on arrival revealed a sodium of 127 with a potassium of 5.1, chloride 93, CO2 31, BUN 36, creatinine 2.96, GFR 23.0 and fasting glucose 27. PT on admission was 14.8 with an INR of 1.09. ABG on admission revealed a pH of 7.13 with a pCO2 of 99.2, pO2 of 72.5. Serum carbon monoxide was 4.8. Serum carboxyhemoglobin was 4.8. ABG done earlier this morning revealed a pH of 7.25, pCO2 66.5, pO2 78.8. Respiratory panel was negative. Blood cultures no growth since hospitalization. Urine culture is negative. Chest x-ray on admission revealed chronic interstitial markings but no cardiomegaly. There is a small left pleural effusion. Chest x-ray this morning reveal a small focal zone of atelectasis, otherwise unremarkable. No cardiomegaly. Next abdominal and pelvic CT revealed small bilateral pleural effusion, small polymorphic ascites, thickening of the wall of the descending colon and sigmoid colon which may represent colitis but was nonspecific. No bowel distension or obstruction. Next echocardiogram revealed normal sinus rhythm, biatrial enlargement, right the right bundle branch block and nonspecific ST-T abnormalities. There are no significant changes from prior tracing. IMPRESSION: 1. Abnormal serum troponin, this might be related to type 2 myocardial infarction due to demand ischemia in the setting of hypotension but he does have risk factors for CAD and we have also underlying occlusive CAD. Today, he denies any recent chest pain. Case was discussed yesterday with hospitalist and conservative management was recommended. We will continue the aspirin. He will be off his statin because of his abnormal LFTs. He also will be off of his JOSE inhibitor and beta-fifi because of low blood pressure. He is currently on subcu heparin. He had echocardiogram done earlier today and. His LVEF is normal. He continued to have moderately severe pulmonary hypertension and some degree of right-sided heart failure because right and ventricle free wall appeared to be hypokinetic. Otherwise mild to moderate valvular heart disease noted. 2. Acute on chronic hypercapnic respiratory failure and this is being managed by Dr. Steiner. His pO2 is slowly improving. 3. Status post a hypovolemic shock and probably related to his diarrhea and the setting of poor intake and also aggravated by his cardiac meds, the JOSE inhibitor and the beta fifi. He has responded very quickly to IV fluids and his EF is normal. We can continue with IV fluids as needed. He will need to be monitored for fluid overload. 4. Status post acute kidney injury, improving with IV fluids. 5. Electrolyte abnormalities and this is being addressed and also improving. 6. Abnormal LFTs probably related to his hypovolemic shock. His LFT's are improving. 7. Pulmonary hypertension, severe. Related most likely to his underlying disease. 8. History of COPD, severe for which he has been on oxygen supplement nasal cannula 2 liters per minute. It was a pleasure to participate the care of Mr. [place] Spence for his underlying cardiac condition. He appears to be stable from a cardiac point of view. As mentioned before, his abnormal LFT's may be related to type 2 NSTEMI due to hypertension but also he has some underlying CAD in view of his overall cardiovascular risk factors. Will continue to monitor along with you. At this present time, we will continue conservative management. IVORY
[2018-12-18] MEDS: CLOPIDOGREL 75 MG TAB PO SCH (09:02)
[2018-12-18] MEDS: ASPIRIN 325 MG TAB PO SCH (09:02)
[2018-12-18] MEDS: MULTIVITAMINS/MINERALS THERAP 1 TAB PO SCH (09:02)
[2018-12-18] MEDS: THIAMINE HCL 200 MG/2 ML VIAL (J3411) IM SCH (09:08)
[2018-12-18] MEDS: PANTOPRAZOLE 40MG INJ (PROTONIX) (C9113) IV SCH ×2 (09:08→20:52)
[2018-12-18] MEDS: MEROPENEM INJ 500 MG in IV 1 EA IV SCH ×2 (09:09→20:52)
--- NOTE | 2018-12-18 09:11 | ECGEPIP ---
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
--- NOTE | 2018-12-18 09:22 | IPN ---
DATE OF SERVICE: 12/18/2018 Mr. Spence is in ICU. He is on BiPAP. Unfortunately he cannot provide any reasonable history. He is certainly alert but I am not quite sure whether he even comprehends what we are saying. Vital signs: Blood pressure 122/67, heart rate has been in 80s and 90s. Saturation is 96%, 25% FiO2. His fluid balance yesterday was recorded as positive about 600. He made about 2700 mL of urine and weight is 63 kg this morning which is up since yesterday. He is certainly alert. He turns his head. He raises his extremities. He tries to assist me when I listen to his lungs by rolling in bed without specifically asking but yet on verbal questioning, he does not seem to provide any appropriate answers. The best I could get from him that he believes that he has seen a malter operator before. I will have to review our office records. His JVP is not high. Lungs sound fairly clear to auscultation. I do not appreciate any wheezing or crackles even though his air movement seems to be fair. Heart exam reveals rather muffled heart sounds. I do not appreciate any obvious gallop or rub. There is very faint murmur best heard just at the bottom part of his sternum. Abdomen is soft. He is still mildly tender diffusely. Extremities have about 1+ edema. Peripheral pulses are detectable but not of the great quality. Neurologic exam as above. He is certainly alert but I cannot party chief his appropriateness. It is possible that he is very hard of hearing even though seems to be less likely. LABORATORY: Basic metabolic panel is normal with the exception of creatinine 1.3. His calcium is 7.6. Troponin is 2.2 which has been similar throughout the admission. He peaked slightly over 4. His CK, CK-MB are normal. Urine is positive for protein on admission that was classified as 3+, but toxicology screen was negative and alcohol was negative. ABGs morning reveals pH 7.25, pCO2 62, pO2 83. CURRENT MEDICATIONS: - aspirin 325 a day - Ativan as per protocol - multivitamin - vitamin B1 - heparin 5000 every 8 hours - pantoprazole 40 mg twice a day - antibiotics, specifically meropenem and hypoglycemia protocol is in place. I reviewed his hospital ECGs. They all reveals sinus rhythm with right bundle branch block and borderline right axis deviation. Their morphology of QRS suggestive of pulmonary hypertension and right atrial enlargement consistent with his echocardiogram that revealed preserved systolic function, but dilated hypokinetic right ventricle and approximately moderately severe pulmonary hypertension. ASSESSMENT/PLAN: Mr. Spence is a 63-year-old man who has longstanding history of smoking and alcohol consumption and known COPD and pulmonary hypertension. He presented with respiratory failure that followed several day history of nausea, vomiting and diarrhea. As per Dr. Steiner, she believes that the respiratory failure was probably not as a primary event but secondary due to his inability to compensate for bicarbonate loss through the GI tract and resulting renal failure due to hypovolemia. Cardiology was involved because his troponin was elevated, even though it certainly is the case there is no clear-cut trend because there has been some fluctuation on and off since his admission. I am going to obtain yet another ECG even though so far there has not been any obvious evolution. I do suspect that this most likely represents type 2 myocardial infarction. I would still recommend to add Plavix to his medical regimen. I believe it is safe as his blood count has been stable. As far as the need for further evaluation of his coronary anatomy, I would await until he is off respiratory support. At that point, we can get better appreciation for his baseline neurologic status and talk about his wishes. It probably will be several more days. I have a suspicion that he has withdrawal from alcohol and it probably will take several days before we can make judgment. In the interim, I would continue monitoring of his heart even though he has not had any ominous looking arrhythmias. I reviewed his telemetry strips and he had a few very brief runs of nonsustained ventricular tachycardia (VT). IVORY
[2018-12-18] MEDS ORDERED: FUROSEMIDE 40 MG/4 ML VIAL (J1940) IV ONE (09:45)
[2018-12-18] MEDS ORDERED: NITROGLYCERIN 0.4 MG SUBL TABLET As Ordered ONE (10:07)
[2018-12-18] MEDS ORDERED: NITROGLYCERIN 0.4 MG SUBL TABLET SL PRN (10:15)
--- NOTE | 2018-12-18 10:15 | CCN ---
DATE: 12/18/2018 Mr. Spence remains critically ill with acute and chronic hypercapnic respiratory failure. He also has a metabolic component to his acidemia. He did well overnight on the noninvasive mechanical ventilator. He still remains acidemic, though he is at his baseline or slightly below his baseline pCO2 and is unable to effectively compensate. When the mask was removed, he was comfortable. He did not indicate distress. In fact, he stated it was nice to be able to sit up some. He is very [id number] making any type of review of systems very difficult. He is not coughing. He is drinking water without difficulty. He has remained off vasopressors for over 24 hours. PHYSICAL EXAMINATION: GENERAL: Mr. Spence is lying in bed in no acute distress. He is drinking water without coughing. He can complete full sentences. Vital signs: Temperature 97.7 with a maximum temperature (t-max) of 98.3, pulse 89, respiratory rate 18, blood pressure 143/85 with a MAP of 109 by NIBP and 176/86 by arterial line. SPO2 is currently 100% on nasal cannula at 2 liters. HEENT: Anicteric, nares patent bilaterally. Oropharynx with moist mucosa. Very poor dentition. LUNGS: Symmetric excursion, generalized diminished air entry, prolonged expiratory phase. There is rare expiratory wheeze heard anteriorly. Glottic closure was noted at times with forced maneuver. No significant crackles or rhonchi. CARDIOVASCULAR: Regular rate and rhythm with a normal S1, S2. No murmur, rub or gallop appreciated. ABDOMEN: Positive bowel sounds, he appeared somewhat tender on exam, soft, EXTREMITIES: Warm and well-perfused, palpable pedal pulses bilaterally, trace to 1+ pedal edema bilaterally, particularly around the ankles. NEUROLOGIC: Alert and awake. Difficult to assess orientation secondary to his [id number]. PSYCHIATRIC: Affect appears appropriate. LABORATORY DATA: CBC shows a hemoglobin 11.1, hematocrit 36.7, platelet count 267,000, white blood cell count 6100. Chemistry shows sodium 138, potassium 4.4, chloride 102, bicarbonate 31, anion gap 5, BUN 26, creatinine 1.3 (down from 2.2), glucose 73, calcium 7.6. CK of 62, CK-MB of 4.4 and troponin-I of 2.2. Arterial blood gas on noninvasive mechanical ventilation with IPAP at 20 and EPAP of 6 and a rate of 14, FIO2 of 0.25 was 7.25/63/84 with a measured saturation 95%, base excess of -1.8. I reviewed the abdominal CT report from 12/17/2018, which read as showing small bilateral pleural effusions, small volume ascites, mild wall thickening of the descending colon and sigmoid colon, nonspecific, but may represent colitis in the appropriate clinical setting. Yesterday's input and output 3355 in and 2735 out making positive 620. Thus far today 1125 in and 525 out making him positive 600. Weight 63 kg. IMPRESSION: 1. Acute on chronic hypercapnic respiratory failure. The acute portion is felt to be secondary to loss of compensation because of the diarrhea. In addition to his obstructive limitation, he also had "won't breathe" status for a period of time, felt secondary to medications that were taken in the setting of liver and renal dysfunction. 2. Hypotension felt secondary to hypovolemia and medications that were taken in the setting liver and renal dysfunction. Resolved. 3. Acute kidney failure likely secondary to prerenal as well as possible acute tubular necrosis (ATN), resolving. 4. Chronic obstructive pulmonary disease (COPD) with hypercapnia and hypoxemia, not felt to have an exacerbation. 5. Elevated troponins, appreciate cardiology input. 6. Moderate to severe pulmonary hypertension. 7. Chronic systolic heart failure with an ejection fraction of 40% a year ago. 9. EtOH abuse, on CIWA protocol. 10. Tobacco usage, ongoing at the time of admission. RECOMMENDATIONS: 1. At this time, he appears awake and alert enough to maintain his own respiratory status. We will discontinue the NIMV and monitor him to see if he is able to keep his pCO2 around 60. 2. We will check arterial blood gas after he has been off of the device for several hours. If he cannot maintain his pCO2, we will place him back on NIMV, hopefully at decreased settings. 3. Would stop IV fluids. 4. We will begin gentle diuresis. Hopefully with gentle diuresis and the associated contraction alkalemia, it will help him compensate for his bicarbonate loss. 5. Depending on how he does in several hours, would consider starting a clear diet but would not accelerate above that until we are certain that he needs no further mechanical ventilation. Critical care time 35 minutes, not including procedure time. [facility]
[2018-12-18] MEDS: NEOSPORIN TOP OINT 15GM TOP SCH ×2 (10:42→20:53)
--- NOTE | 2018-12-18 11:16 | ECGEPIP ---
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
[2018-12-18 11:56] LABS: CORTISOL BASELINE 61.7 UG/DL (4.3-22.4); HEPATITIS A ANTIBODY IGM NEGATIVE (NEGATIVE); HEPATITIS B CORE ANTIBODY IGM NEGATIVE (NEGATIVE); HEPATITIS B SURFACE ANTIGEN NEGATIVE (NEGATIVE)
[2018-12-18] MEDS: SYMBICORT 160/4.5MCG INHALER 6GM INH SCH ×2 (12:02→19:38)
[2018-12-18] MEDS: TIOTROPIUM INHALER/CAPSULE (SPIRIVA) INH SCH (12:02)
[2018-12-18 12:08] LABS: MAGNESIUM LEVEL 1.8 MG/DL (1.8-2.4)
[2018-12-18 12:23] LABS: ABG BASE EXCESS -0.5 (-2.0-2.0); ABG HCO3 29.2 MEQ/L (22.0-26.0); ABG O2 SATURATION 86.2 % (95.0-99.0); ABG PARTIAL PRESSURE O2 59.3 mmHg (75.0-100.0); ABG STANDARD HCO3 23.8 MEQ/L (22.0-26.0); ABG TOTAL CO2 31.5 MEQ/L (23.0-31.0)
[2018-12-18 12:28] LABS: ABG PARTIAL PRESSURE CO2 75.5 mmHg (35.0-45.0); ABG pH (ARTERIAL) 7.205 UNITS (7.350-7.450)
--- NOTE | 2018-12-18 14:20 | IPNPDOC ---
Date Seen The patient was seen on 12/18/18. Progress Note Subjective: Patient is a 63-year-old male with a PMHx of End Stage COPD ( on 2L NC), HTN, R Sided Chronic CHF, Hx of TIA, Pulmonary HTN, Hx of Alcohol abuse, Depression and GERD who presented as a transfer from [facility] for hypotension and hypercapnic raspatory failure. Upon arrival, patient was rather be hypotensive and required aggressive IV fluid hydration. Patient was also was on BiPAP support. It was suspected that the patient was having a COPD exacerbation. Patient was seen and examined this morning lying in bed on the noninvasive mechanical ventilator. Pt reports some improvement in his shortness of breath from yesterday. He states he would like to get the mask off. Patient denies any current chest pain, nausea, vomiting, abdominal pain. Objective: PHYSICAL EXAMINATION: VITAL SIGNS: See below. GENERAL: Lying in bed, appears alert, comfortable HEENT: Normocephalic, atraumatic, PERRLA, EOMI, dry mucous membranes NECK: Supple, trachea midline, no lymphadenopathy, no JVD CARDIOVASCULAR: tachycardic with regular rhythm, normal S1 and S2. No murmurs, r ubs, or gallops appreciated RESPIRATORY: Diminished breath sounds bilaterally with prolonged expiratory phase. Mild expiratory wheezing bilaterally which is improved. No rhonchi or rales. ABDOMEN: Mildly tender throughout the abdomen to deep palpation, soft, nondistended, bowel sounds present, no masses or hepatosplenomegaly appreciated EXTREMITIES: 1+ pedal edema bilaterally, No cyanosis. Pulses 2/4 in bilateral upper and lower extremities NEUROLOGIC: Alert and oriented only to person, that he is in the hospital, and the month, cannot identify which hospital or city, cannot identify year, day. Follows directions. Strength intact in bilateral upper and lower extremities. No focal deficits appreciated. PSYCHIATRIC: Mood and affect appropriate Lab results: See below Imaging: CXR 12/17: Small focal zone of atelectasis versus parenchymal scarring adjacent to the cardiac apex CT abdomen/pelvis 12/17: Small bilateral pleural effusions. Small volume of ascites. Mild wall thickening of the descending colon and sigmoid colon, nonspecific, but may represent colitis in the appropriate clinical setting. No bowel distension or obstruction. ECHO: 1. Normal global left ventricular systolic function. There were some features of grade 1 left ventricular diastolic dysfunction manifested by abn ormal relaxation. 2. Aortic valve sclerosis with trace aortic radiation. 3. Mild mitral regurgitation. 4. Moderate tricuspid regurgitation with dilated right atrium and right ventricle, and moderately severe pulmonary hypertension. 5. The inferior vena cava is mildly enlarged, central venous pressure might be elevated. 6. Trace pericardial effusion noted. 7. The most recent echocardiogram in the system was on 11/01/2017 and at that time, LVEF was estimated at 40%. Assessment and plan: Hypotension / Shock - possibly 2/2 hypovolemic 2/2 volume loss from diarrhea, less likely septic 2/2 infection, unlikely 2/2 cardiogenic, unlikely 2/2 adrenal insufficiency - Patient has received 2 L of fluid hydration at [facility]; received an additional 3 L bolus upon arrival - Patient's blood pressure initially had responded, however, had required central line placement and pressor support, off pressors since 12/17 - Currently, patient's blood pressure is doing significantly better while off pressor support, continue to monitor with arterial line per ingot supervisor - Cortisol levels high, no evidence of adrenal insufficiency - c/w Broad spectrum antibiotics, likely colitis (Meropenem day #3 of 7) - stop IV fluids as pt is hemodynamically stable and showing signs of some fluid overload Leukocytosis - likely 2/2 infectious etiology, possibly 2/2 reactive etiology - At [facility], patient had a normal white blood cell count without any fevers noted - Upon arrival at [facility], patient had an elevated WBC count; however again, remained afebrile, Lactic acid has remained normal - Patient did have some complaints of diffuse abdominal pain. However, CT scan was deferred given his hypotension - Clinically patient has not had any further episodes of diarrhea - UA appears possibly infected, Urine cultures negative, blood cultures negative @ 24 hrs, respiratory panel negative - Imaging results as above, chest x-ray did not show any signs of pneumonia, CT abdomen/pelvis did show evidence of colitis. - c/w Meropenem for colitis (day #3 of 7) Acute on chronic hypercarbic respiratory failure with respiratory acidosis - likely 2/2 acute COPD exacerbation and 2/2 compensation for volume/electrolyte loss from diarrhea - Patient's breathing continues to improve, Physical does reveal significant wheezing bilaterally - Patient serial ABGs have shown improvement acidosis and PCO2 retention - CXR without any evidence of pneumonia - s/p Solumedrol loading dose, continue Solumedrol - continue Inhaled therapy as ordered - continue noninvasive mechanical ventilation (NIPPV) per ingot supervisor - Pulmonary/ingot supervisor on consultation; appreciate their input Diarrhea; 2/2 colitis, less likely 2/2 possible GI bleed - Patient has had an episode of rectal bleeding while in the ICU; small red mucoid rectal output - No further episodes have been noted, H/H has remained stable - GI panel pending, CT abd/pelvis showed evidence of colitis - Remains NPO while on NIPPV - continue Protonix 40 IV BID, continue abx coverage with Meropenem (day #3 of 7) - Patient has been consented for blood transfusion via HCP, if indicated Acute renal failure - likely 2/2 pre-renal etiology - hypotension and hypovolemia - Patient appears to be at normal renal function last year - Creatinine on arrival was approximately less than 3; continues to improve s/p IV fluid resuscitation Hyponatremia - likely 2/2 hypotonic hyponatremia - likely 2/2 hypovolemia, possibly 2/2 euvolemic etiologies - Patient's sodium has slowly improved throughout hospitalization, today WNL - Clinically appears euvolemic still - TSH/free T4 WNL Hyperkalemia - improved s/p IV fluid hydration Elevated troponin - likely 2/2 demand ischemia - Currently patient denies any complaint of chest pain - EKG has been compared to prior and does not show any significant change. Does still reveal right bundle-branch block - Troponins have trended up to a peak of 4.03, initial trend down and have been stable - Discussed ACS protocol with Cardiology; currently no BB, JOSE-I, Nitroglycerine given hypotension, no Statin given Transaminitis, no anticoagulation - given rectal bleed - Echocardiogram results as above, normal EF based on report - continue aspirin 325 - Cardiology on consultation; appreciate their input Transaminitis - possibly 2/2 alcoholism, possibly 2/2 hypotension, possibly 2/2 infection - trending down, continue to monitor daily - ammonia level normal - hepatitis panel negative HTN - Home BP medications on hold in the setting of hypotension Suspected alcoholism - CIWA protocol, supplement thiamin, folate, and multivitamin Chronic systolic CHF - ECHO 10/2017: EF 40% - start diuresis in the setting of volume overload GI prophylaxis: continue Protonix IV BID DVT prophylaxis: continue Heparin SQ ATTENDING PHYSICIAN ADDENDUM: I have independently interviewed and examined the patient at the bedside. I agree with the physical findings and management plan which I have discussed with my Resident physician, as documented above. Patient's questions have been answered, and patient has been satisfactorily updated about his treatment plan. VS, I&O, 24H, Fishbone Vital Signs/I&O Vital Signs Date Time Temp Pulse Resp B/P (MAP) Pulse Ox O2 Delivery O2 Flow Rate FiO2 12/18/18 12:34 95 Ventilator 25 12/18/18 12:20 1.0 12/18/18 12:15 26 12/18/18 12:01 108 138/64 12/18/18 12:00 98.4 I&O- Last 24 Hours up to 6 AM 12/18/18 06:00 Intake Total 3290 ml Output Total 2235 ml Balance 1055 ml Laboratory Data 24H LABS Laboratory Tests 2 12/17/18 12:59: Blood Gas Bicarbonate Standard 21.7L, Arterial Blood pH 7.255L, Arterial Blood Partial Pressure CO2 56.4H, Arterial Blood Partial Pressure O2 89.5, Arterial Blood Total CO2 26.2, Arterial Blood HCO3 24.5, Arterial Blood Base Excess -3.2L, Arterial Blood Oxygen Saturation 96.2, Arterial Blood Gas Liter Flow 35% 12/17/18 18:16: Total Creatine Kinase 39, Creatine Kinase MB 2.0, Creatine Kinase MB Relative Index 5.13H, Troponin I 1.60#*H 12/17/18 21:53: Total Creatine Kinase 69#, Creatine Kinase MB 2.9, Creatine Kinase MB Relative Index 4.20H, Troponin I 2.22#*H 12/18/18 04:13: Total Creatine Kinase 62, Creatine Kinase MB 2.7, Creatine Kinase MB Relative Index 4.35H, Troponin I 2.23*H, Nucleated Red Blood Cells % (auto) 0.3H, Anion Gap 5L, Glomerular Filtration Rate 59.0, Calcium Level 7.6L, Magnesium Level 1.8 12/18/18 06:58: Blood Gas Bicarbonate Standard 23.0, Arterial Blood pH 7.247*L, Arterial Blood Partial Pressure CO2 62.2*H, Arterial Blood Partial Pressure O2 83.7, Arterial Blood Total CO2 28.4, Arterial Blood HCO3 26.5H, Arterial Blood Base Excess - 1.8, Arterial Blood Oxygen Saturation 95.3 12/18/18 11:53: Bedside Glucose (Misc Panel) 74L 12/18/18 12:15: Blood Gas Bicarbonate Standard 23.8, Arterial Blood pH 7.205*L, Arterial Blood Partial Pressure CO2 75.5*H, Arterial Blood Partial Pressure O2 59.3L, Arterial Blood Total CO2 31.5H, Arterial Blood HCO3 29.2H, Arterial Blood Base Excess - 0.5, Arterial Blood Oxygen Saturation 86.2L CBC/BMP Laboratory Tests 12/17/18 18:16 12/17/18 23:58 12/18/18 04:13 Microbiology Microbiology 12/16/18 Urine Culture - Final, Complete 12/16/18 Blood Culture - Preliminary, Resulted No growth after 24 hours . All specim... 12/16/18 Respiratory Virus Panel (PCR) ([facility]) - Final, Complete 12/16/18 Blood Culture - Preliminary, Resulted No growth after 24 hours . All specim... ANDREW GUY PGY-1 Dec 18, 2018 14:19 JOSSELYN ZHOU MD Dec 18, 2018 14:33
[2018-12-18 15:25] LABS: ABG BASE EXCESS 1.9 (-2.0-2.0); ABG HCO3 29.4 MEQ/L (22.0-26.0); ABG O2 SATURATION 95.3 % (95.0-99.0); ABG PARTIAL PRESSURE CO2 59.9 mmHg (35.0-45.0); ABG PARTIAL PRESSURE O2 79.1 mmHg (75.0-100.0); ABG STANDARD HCO3 26.2 MEQ/L (22.0-26.0); ABG TOTAL CO2 31.3 MEQ/L (23.0-31.0); ABG pH (ARTERIAL) 7.309 UNITS (7.350-7.450)
[2018-12-18 17:35] LABS: ALBUMIN 3.1 GM/DL (3.2-5.2); BILIRUBIN,DIRECT 0.2 MG/DL (0.0-0.2); BILIRUBIN,TOTAL 0.4 MG/DL (0.2-1.0); CK-MB VALUE MASS 2.3 NG/ML (<3.6); MAGNESIUM LEVEL 1.6 MG/DL (1.8-2.4); MB/CK RELATIVE INDEX 3.77 (< OR =4); PHOSPHORUS LEVEL 2.7 MG/DL (2.5-4.9); TROPONIN I 2.33 NG/ML (< 0.10)
[2018-12-18] MEDS ORDERED: MAG SULF 1GM/100ML (MAG RUN) 1 GM in IV 1 EA IV ONE (17:45)
[2018-12-18] MEDS: FOLIC ACID 1 MG in NS 50 ML IV SCH (18:14)
[2018-12-18] MEDS ORDERED: ACETAMINOPHEN *IV* 1,000 MG in IV 1 EA IV ONE (22:15)
[2018-12-19] VITALS (15 sets, daily range): BP systolic 130–179; BP diastolic 56–91; O2SAT 90
[2018-12-19] MEDS ORDERED: ATORVASTATIN 20 MG TAB PO ONE (01:45)
[2018-12-19 05:17] LABS: HEMATOCRIT 35.1 % (42.0-52.0); HEMOGLOBIN 10.8 g/dl (13.5-17.5); MEAN CORPUSCULAR HGB CONC 30.8 g/dl (32.0-36.5); MEAN CORPUSCULAR VOLUME 90.9 fl (80.0-96.0); MONO # 1.3 10^3/uL (0.0-0.8); MONO % 18.8 % (0.0-5.0); NEUTROPHILS # 4.6 10^3/uL (1.5-8.5); NEUTROPHILS % 66.9 % (36.0-66.0); PLATELET COUNT, AUTOMATED 257 10^3/uL (150-450); RED BLOOD COUNT 3.86 10^6/uL (4.30-6.10); WHITE BLOOD COUNT 6.9 10^3/uL (4.0-10.0)
[2018-12-19 05:41] LABS: ALT/SGPT 330 U/L (12-78); BILIRUBIN,TOTAL 0.5 MG/DL (0.2-1.0); BLOOD UREA NITROGEN 21 MG/DL (7-18); CALCIUM LEVEL 8.4 MG/DL (8.8-10.2); CARBON DIOXIDE LEVEL 34 MEQ/L (21-32); CHLORIDE LEVEL 99 MEQ/L (98-107); CREATININE FOR GFR 0.92 MG/DL (0.70-1.30); GLOMERULAR FILTRATION RATE > 60.0 (>49); GLUCOSE, FASTING 69 MG/DL (70-100); MAGNESIUM LEVEL 1.8 MG/DL (1.8-2.4); POTASSIUM SERUM 3.7 MEQ/L (3.5-5.1); SODIUM LEVEL 138 MEQ/L (136-145); TOTAL PROTEIN 5.6 GM/DL (6.4-8.2)
[2018-12-19] MEDS: HEPARIN SOD (PORCINE) 5000 UNITS/ML VIAL SQ SCH ×3 (05:58→21:39)
--- NOTE | 2018-12-19 07:17 | IPN ---
DATE: 12/19/2018 Mr. Spence remains in the intensive care unit (ICU) on BiPap, but he had a relatively good night. There were no significant events. When I reviewed telemetry tracings, he does have predominantly sinus rhythm with occasional ventricular ectopy, including very brief runs of nonsustained ventricular tachycardia. This morning, he is a lot more oriented and even with BiPap on he seems to answer questions appropriately, at least the basic ones. He does deny having any chest discomfort overnight or this morning. Vital Signs: Blood pressure 148/83 and has been elevated throughout the night. Heart rate mostly 90s. He is afebrile. Saturation is 92-96% on BiPap and 25% FiO2. His fluid balance yesterday was slightly negative about 400 mL. Weight was not documented this morning as yet. He made about 2500 mL of urine. 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 Heart reveals a regular rhythm. There is faint murmur over the aortic valve area. I do not appreciate any distinct gallop. Lungs have expiratory wheezes today, but good air movement and I do not appreciate any crackles. Abdomen is soft. No obvious tenderness. Bowel sounds are positive. No guarding. Extremities: Have trace edema. Peripheral pulses are palpable. LABORATORIES: CBC reveals hemoglobin 10.8, hematocrit 35, platelet count 257,000, and WBC count 6.9. Basic metabolic panel with sodium 138, potassium 3.7, BUN 21, creatinine 0.9, glucose 69, carbon dioxide 34, and magnesium is 1.8. His last troponin was 2.3. Albumin 3.0. ABGs this morning reveal pH 7.31, pCO2 of 60 and pO2 80. ASSESSMENT/PLAN: Mr. Spence is a 63-year-old man who has advanced chronic obstructive pulmonary disease (COPD), but also history of cardiomyopathy with ejection fraction (EF) of around 40% last year, but according to echocardiogram during this hospitalization it has normalized. He presented with respiratory failure after having several day history of nausea, vomiting and diarrhea. It looks like his condition is gradually improving. He was appropriately restarted on low-dose beta fifi and statin by the hospitalist team. Cardiology was involved because of mild troponin elevation that peaked at a little over 4 without appreciable trend. The overall presentation is not consistent with acute coronary syndrome and I do believe that this is most likely due to right ventricular strain related to right-sided heart failure and pulmonary hypertension. At this point, he was restarted on diuretics and his respiratory status is improving. I do expect that he will be able to get off BiPap today and hopefully sustain it. As far as the hypertension is concerned, which is still not under good control, I do expect improvement with diuretics and I would not hesitate to add spironolactone to his regimen provided blood pressure allows.
[2018-12-19] MEDS: SYMBICORT 160/4.5MCG INHALER 6GM INH SCH ×2 (07:19→20:18)
[2018-12-19 07:25] LABS: ABG BASE EXCESS 4.2 (-2.0-2.0); ABG HCO3 31.9 MEQ/L (22.0-26.0); ABG O2 SATURATION 94.7 % (95.0-99.0); ABG PARTIAL PRESSURE O2 76.7 mmHg (75.0-100.0); ABG STANDARD HCO3 28.2 MEQ/L (22.0-26.0); ABG TOTAL CO2 33.8 MEQ/L (23.0-31.0); ABG pH (ARTERIAL) 7.317 UNITS (7.350-7.450)
[2018-12-19 07:28] LABS: ABG PARTIAL PRESSURE CO2 63.7 mmHg (35.0-45.0)
[2018-12-19] MEDS: TIOTROPIUM INHALER/CAPSULE (SPIRIVA) INH SCH (08:00)
[2018-12-19] MEDS ORDERED: FUROSEMIDE 40 MG/4 ML VIAL (J1940) IV ONE (08:45)
[2018-12-19] MEDS ORDERED: FUROSEMIDE 40 MG TAB PO SCH (09:00)
[2018-12-19] MEDS: PANTOPRAZOLE 40MG TAB (PROTONIX) PO SCH (09:19)
[2018-12-19] MEDS: FOLIC ACID 1 MG TAB PO SCH (09:19)
[2018-12-19] MEDS: MEROPENEM INJ 500 MG in IV 1 EA IV SCH (09:19)
[2018-12-19] MEDS: MULTIVITAMINS/MINERALS THERAP 1 TAB PO SCH (09:19)
[2018-12-19] MEDS: THIAMINE 100 MG TAB PO SCH (09:19)
[2018-12-19] MEDS: ASPIRIN 325 MG TAB PO SCH (09:19)
[2018-12-19] MEDS: CLOPIDOGREL 75 MG TAB PO SCH (09:19)
[2018-12-19] MEDS: NEOSPORIN TOP OINT 15GM TOP SCH ×2 (09:20→21:40)
[2018-12-19] MEDS: CARVedilol 3.125 MG TAB PO SCH ×2 (09:20→21:40)
--- NOTE | 2018-12-19 10:29 | IPNPDOC ---
Date Seen The patient was seen on 12/19/18. Progress Note Subjective: Patient was seen and examined this morning lying comfortably in bed. Patient states his breathing is improved this morning. He was on the NIPPV yesterday and overnight, but it was just taken off this morning to see how he does. He states he is still having some upper abdominal pain mostly in the left upper quadrant. He states he is hungry and would like to eat if possible. He denies any current chest pain. Objective: PHYSICAL EXAMINATION: VITAL SIGNS: See below. GENERAL: Lying in bed, appears alert, comfortable HEENT: Normocephalic, atraumatic, PERRLA, EOMI, dry mucous membranes NECK: Supple, trachea midline, no lymphadenopathy, no JVD CARDIOVASCULAR: Regular rate and rhythm, normal S1 and S2. No murmurs, rubs, or gallops appreciated RESPIRATORY: Diminished breath sounds bilaterally with prolonged expiratory phase. Mild expiratory wheezing bilaterally which is improved. No rhonchi or rales. ABDOMEN: Mildly tender throughout the abdomen to deep palpation, soft, nondis tended, bowel sounds present, no masses or hepatosplenomegaly appreciated EXTREMITIES: 1+ pedal edema bilaterally, No cyanosis. Pulses 2/4 in bilateral upper and lower extremities NEUROLOGIC: Alert and oriented to person, place, month, and date but was not oriented to year. Patient follows directions. Strength intact in bilateral upper and lower extremities. No focal deficits appreciated. PSYCHIATRIC: Mood and affect appropriate Lab results: See below Imaging: CXR 12/17: Small focal zone of atelectasis versus parenchymal scarring adjacent to the cardiac apex CT abdomen/pelvis 12/17: Small bilateral pleural effusions. Small volume of ascites. Mild wall thickening of the descending colon and sigmoid colon, nonspecific, but may represent colitis in the appropriate clinical setting. No bowel distension or obstruction. ECHO: 1. Normal global left ventricular systolic function. There were some features of grade 1 left ventricular diastolic dysfunction manifested by abnormal relaxation. 2. Aortic valve sclerosis with trace aortic radiation. 3. Mild mitral regurgitation. 4. Moderate tricuspid regurgitation with dilated right atrium and right ventricle, and moderately severe pulmonary hypertension. 5. The inferior vena cava is mildly enlarged, central venous pressure might be elevated. 6. Trace pericardial effusion noted. 7. The most recent echocardiogram in the system was on 11/01/2017 and at that time, LVEF was estimated at 40%. Assessment and plan: Patient is a 63-year-old male with a PMHx of End Stage COPD ( on 2L NC), HTN, R Sided Chronic CHF, Hx of TIA, Pulmonary HTN, Hx of Alcohol abuse, Depression and GERD who presented as a transfer from [facility] for hypotension and hypercapnic raspatory failure. Upon arrival, patient was rather be hypotensive and required aggressive IV fluid hydration. Patient was also was on BiPAP support. It was suspected that the patient was having a COPD exacerbation and likely infectious colitis. Problems: Hypotension / Shock - possibly 2/2 hypovolemic 2/2 volume loss from diarrhea, less likely septic 2/2 infection, unlikely 2/2 cardiogenic, unlikely 2/2 adrenal insufficiency - Patient has received 2 L of fluid hydration at [facility]; received an additional 3 L bolus upon arrival - Patient's blood pressure initially had responded, however, had required central line placement and pressor support, off pressors since 12/17 - Currently, patient's blood pressure is doing significantly better while off pressor support, continue to monitor with arterial line per ribbon tier - Cortisol levels high, no evidence of adrenal insufficiency - c/w Broad spectrum antibiotics, likely colitis (Meropenem day #4 of 7) - Patient has been off IV fluids since yesterday and appears stable Leukocytosis - likely 2/2 infectious etiology, possibly 2/2 reactive etiology - At [facility], patient had a normal white blood cell count without any fevers noted - Upon arrival at [facility], patient had an elevated WBC count; however again, remained afebrile, Lactic acid has remained normal - Patient did have some complaints of diffuse abdominal pain. However, CT scan was deferred given his hypotension - Clinically patient has not had any further episodes of diarrhea - UA appears possibly infected, Urine cultures negative, blood cultures negative @ 24 hrs, respiratory panel negative - Imaging results as above, chest x-ray did not show any signs of pneumonia, CT abdomen/pelvis did show evidence of colitis. - c/w Meropenem for colitis (day #4 of 7) Acute on chronic hypercarbic respiratory failure with respiratory acidosis - likely 2/2 acute COPD exacerbation and 2/2 compensation for volume/electrolyte loss from diarrhea - Patient's breathing continues to improve, Physical does reveal significant wh eezing bilaterally - Patient serial ABGs have shown improvement acidosis and PCO2 retention - CXR without any evidence of pneumonia - s/p Solumedrol loading dose, continue Solumedrol with plan to taper to prednisone - continue Inhaled therapy as ordered - pt off NIPPV this morning, continue with O2 supplementation to maintain saturations above 88% - Pulmonary/ribbon tier on consultation; appreciate their input Diarrhea; 2/2 colitis, less likely 2/2 possible GI bleed - Patient has had an episode of rectal bleeding while in the ICU; small red mucoid rectal output - No further episodes have been noted, H/H has remained stable - GI panel pending, CT abd/pelvis showed evidence of colitis - continue Protonix 40 IV BID, continue abx coverage with Meropenem (day #4 of 7) - Patient has been consented for blood transfusion via HCP, if indicated - Start clear liquid diet now that he is off NIPPV, advance as tolerated. Acute renal failure - likely 2/2 pre-renal etiology - hypotension and hypo volemia - Patient appears to be at normal renal function last year - Creatinine on arrival was 2.96; has improved s/p IV fluid resuscitation and currently WNL Hyponatremia - likely 2/2 hypotonic hyponatremia - likely 2/2 hypovolemia, possibly 2/2 euvolemic etiologies - Patient's sodium has slowly improved throughout hospitalization, currently remains WNL - Clinically appears euvolemic - TSH/free T4 WNL Hyperkalemia - improved s/p IV fluid hydration Elevated troponin - likely 2/2 demand ischemia - Currently patient denies any complaint of chest pain - EKG has been compared to prior and does not show any significant change. Does still reveal right bundle-branch block - Troponins have trended up to a peak of 4.03, initial trend down and have been stable - Discussed ACS protocol with Cardiology; currently no BB, JOSE-I, Nitroglycerine given hypotension, no Statin given Transaminitis, no anticoagulation - given rectal bleed - Echocardiogram results as above, normal EF based on report - continue aspirin 325 mg and Plavix 75 mg - Cardiology on consultation; appreciate their input Transaminitis - possibly 2/2 hypotension, possibly 2/2 alcoholism, possibly 2/2 infection - trending down, continue to monitor daily - ammonia level normal - hepatitis panel negative HTN - pt presented hypotensive requiring IV fluid resuscitation and pressors. Hypotension has since resolved. Will begin to restart home blood pressure medication as indicated Suspected alcoholism - CIWA protocol, supplement thiamin, folate, and multivitamin Chronic systolic CHF - ECHO 10/2017: EF 40% - start diuresis in the setting of volume overload GI prophylaxis: continue Protonix PO BID DVT prophylaxis: continue Heparin SQ ATTENDING NOTE I have personally evaluated and examined the patient. Discussed with residents and student regarding plan of care and agree with the above assessment and plan. VS, I&O, 24H, Fishbone Vital Signs/I&O Vital Signs Date Time Temp Pulse Resp B/P (MAP) Pulse Ox O2 Delivery O2 Flow Rate FiO2 12/19/18 09:20 90 159/90 12/19/18 08:00 98.5 20 94 Room Air 1.0 12/19/18 07:21 25 I&O- Last 24 Hours up to 6 AM 12/19/18 06:00 Intake Total 2029 ml Output Total 2540 ml Balance -511 ml Laboratory Data 24H LABS Laboratory Tests 2 12/18/18 11:53: Bedside Glucose (Misc Panel) 74L 12/18/18 12:15: Blood Gas Bicarbonate Standard 23.8, Arterial Blood pH 7.205*L, Arterial Blood Partial Pressure CO2 75.5*H, Arterial Blood Partial Pressure O2 59.3L, Arterial Blood Total CO2 31.5H, Arterial Blood HCO3 29.2H, Arterial Blood Base Excess - 0.5, Arterial Blood Oxygen Saturation 86.2L 12/18/18 15:13: Blood Gas Bicarbonate Standard 26.2H, Arterial Blood pH 7.309L, Arterial Blood Partial Pressure CO2 59.9H, Arterial Blood Partial Pressure O2 79.1, Arterial Blood Total CO2 31.3H, Arterial Blood HCO3 29.4H, Arterial Blood Base Excess 1.9, Arterial Blood Oxygen Saturation 95.3 12/18/18 16:42: Phosphorus Level 2.7, Magnesium Level 1.6L, Total Bilirubin 0.4, Direct Bilirubin 0.2, Aspartate Amino Transf (AST/SGOT) 138H, Alanine Aminotransferase (ALT/SGPT) 381H, Alkaline Phosphatase 104, Total Creatine Kinase 61, Creatine Kinase MB 2.3, Creatine Kinase MB Relative Index 3.77, Troponin I 2.33*H, Total Protein 6.0L, Albumin 3.1L, Albumin/Globulin Ratio 1.07 12/18/18 18:11: Bedside Glucose (Misc Panel) 54L 12/18/18 18:36: Bedside Glucose (Misc Panel) 95 12/19/18 00:46: Bedside Glucose (Misc Panel) 66L 12/19/18 04:54: Immature Granulocyte % (Auto) 0.3, Neutrophils (%) (Auto) 66.9H, Lymphocytes (%) (Auto) 14.0L, Monocytes (%) (Auto) 18.8H, Eosinophils (%) (Auto) 0.0, Basophils (%) (Auto) 0.0, Neutrophils # (Auto) 4.6, Lymphocytes # (Auto) 1.0L, Monocytes # (Auto) 1.3H, Eosinophils # (Auto) 0.0, Basophils # (Auto) 0.0, Nucleated Red Blood Cells % (auto) 0.3H, Anion Gap 5L, Glomerular Filtration Rate > 60.0, Calcium Level 8.4L, Magnesium Level 1.8, Total Bilirubin 0.5, Aspartate Amino Transf (AST/SGOT) 114H, Alanine Aminotransferase (ALT/SGPT) 330H, Alkaline Phosphatase 96, Total Protein 5.6L, Albumin 3.0L, Albumin/Globulin Ratio 1.15 12/19/18 06:28: Bedside Glucose (Misc Panel) 69L 12/19/18 07:12: Blood Gas Bicarbonate Standard 28.2H, Arterial Blood pH 7.317L, Arterial Blood Partial Pressure CO2 63.7*H, Arterial Blood Partial Pressure O2 76.7, Arterial Blood Total CO2 33.8H, Arterial Blood HCO3 31.9H, Arterial Blood Base Excess 4.2H, Arterial Blood Oxygen Saturation 94.7L CBC/BMP Laboratory Tests 12/19/18 04:54 Microbiology Microbiology 12/16/18 Urine Culture - Final, Complete 12/16/18 Blood Culture - Preliminary, Resulted No Growth after 48 hours. All Specime... 12/16/18 Respiratory Virus Panel (PCR) ([facility]) - Final, Complete 12/16/18 Blood Culture - Preliminary, Resulted No Growth after 48 hours. All Specime... ANDREW GUY PGY-1 Dec 19, 2018 10:29 AMBER ORTEZ MD Dec 19, 2018 18:46
[2018-12-19 12:00] LABS: ABG BASE EXCESS 10.6 (-2.0-2.0); ABG HCO3 39.2 MEQ/L (22.0-26.0); ABG O2 SATURATION 94.9 % (95.0-99.0); ABG PARTIAL PRESSURE O2 76.9 mmHg (75.0-100.0); ABG STANDARD HCO3 34.3 MEQ/L (22.0-26.0); ABG TOTAL CO2 41.6 MEQ/L (23.0-31.0); ABG pH (ARTERIAL) 7.336 UNITS (7.350-7.450)
[2018-12-19 12:01] LABS: ABG PARTIAL PRESSURE CO2 75.1 mmHg (35.0-45.0)
--- NOTE | 2018-12-19 13:25 | IPN ---
DATE: 12/19/2018 NOTE: Mr. Spence did well overnight. He was kept off the noninvasive mechanical ventilator for several hours yesterday, but a repeat arterial blood gas showed worsening respiratory acidemia and it was felt that he needed continued support. He was placed back on the device, though at a lower respiratory rate to allow him to try to set his own pH. He also was diuresed. His bicarbonate level has increased to the point where he now has a level that is compensatory for his chronic respiratory acidosis. He is alert and awake. He states he is hungry. He is tolerating clear liquids. He denies any pain or shortness of breath. OBJECTIVE: PHYSICAL EXAMINATION: GENERAL: Mr. Spence is lying in bed in no acute distress. He can complete full sentences. He is hard of hearing, so sometimes he does not answer questions. No cough at evaluation. VITAL SIGNS: Temperature 98.5, pulse 92, respiratory rate 20, blood pressure 153/87, MAP at 112. SPO2 94% on 1 liter. HEENT: Anicteric. Nares patent bilaterally. Oropharynx clear, poor dentition. NECK: Supple, without apparent JVD. No thyromegaly or masses. LUNGS: Symmetric excursion, generalized diminished air entry, scattered expiratory wheezes. No rhonchi or significant crackles. Prolonged expiratory phase. No accessory muscle usage or retractions. CARDIOVASCULAR: Regular rate and rhythm. Normal S1-S2, no murmur, rub or gallop appreciated. ABDOMEN: Positive bowel sounds, soft, nondistended, mild tenderness in the left lower quadrant. No rebound or guarding. EXTREMITIES: Warm and well perfused. Stronger pedal pulses bilaterally. Decreased pedal edema. PSYCH: Affect appropriate. NEUROLOGIC: No focal deficits. LABORATORY DATA: CBC from this morning shows sodium 138, potassium 3.7, chloride 99, bicarbonate 34, anion gap 5, BUN 21, creatinine 0.9, glucose 69, calcium 8.4, phosphorus 1.8, total bilirubin 0.5, AST 114, ALT 330, alkaline phosphatase 96, total protein 5.6, albumin 3.0. Yesterday's intake and output were 2179 in and 2565 out making him negative 386. Thus far today 1010 in and 5 out, making him negative 1015. Arterial blood gas this morning on an NIMV of 27/07 with a rate of 14 and FIO2 of 0.25 was 7.32/64/77 with a measured saturation of 95% and a base excess 4.2. A repeat arterial blood gas after being off of the NIMV for about 4 hours, now on 1 liter nasal cannula was 7.34/75/77 with a measured saturation of 95% and a base excess of 10.6. IMPRESSION: 1. Acute on chronic hypercapnic respiratory failure. The acute portion is felt to be secondary loss of compensation and has essentially resolved. The chronic portion is felt secondary to his COPD. 2. Acute kidney failure felt secondary to both prerenal as well as possible ATN is resolving. 3. COPD with hypercapnia and hypoxemia at baseline, not felt to have an exacerbation. 4. Elevated troponins, followed by cardiology. 5. Moderate to severe pulmonary hypertension. 6. Chronic systolic heart failure with an EF of 40% a year ago. 7. EtOH abuse, on CIWA protocol but has not required any intervention. 8. Tobacco usage, ongoing at the time of admission. RECOMMENDATIONS 1. We will advance his diet to soft. I want to make certain that he is able to tolerate that with his poor dentition, though I suspect he eats normally home. 2. He was started on his baseline inhaled corticosteroid (IC), long-acting beta agonist (LABA) and long-acting muscarinic antagonist (LAMA) yesterday. 3. Continue bronchodilators as needed. 4. Will recheck an arterial blood gas around 5 o'clock. At that time he will have been off NIMV for close at 12 hours. If he is still doing well at time will discontinue the arterial line and NIMV. IVORY
[2018-12-19] MEDS: MEROPENEM INJ 1 GM in IV 1 EA IV SCH ×2 (15:12→21:40)
[2018-12-19 18:05] LABS: ABG BASE EXCESS 4.7 (-2.0-2.0); ABG HCO3 32.6 MEQ/L (22.0-26.0); ABG O2 SATURATION 94.5 % (95.0-99.0); ABG PARTIAL PRESSURE O2 75.2 mmHg (75.0-100.0); ABG STANDARD HCO3 28.6 MEQ/L (22.0-26.0); ABG TOTAL CO2 34.6 MEQ/L (23.0-31.0); ABG pH (ARTERIAL) 7.315 UNITS (7.350-7.450)
[2018-12-19 18:06] LABS: ABG PARTIAL PRESSURE CO2 65.5 mmHg (35.0-45.0)
[2018-12-19] MEDS: ATORVASTATIN 20 MG TAB PO SCH (21:39)
[2018-12-20] VITALS (9 sets, daily range): BP systolic 127–181; BP diastolic 65–87
[2018-12-20 05:12] LABS: BASO % 0.2 % (0.0-1.0); EOS % 0.2 % (0.0-3.0); HEMATOCRIT 35.7 % (42.0-52.0); HEMOGLOBIN 11.3 g/dl (13.5-17.5); LYMPH # 1.4 10^3/uL (1.5-5.0); LYMPH % 20.7 % (24.0-44.0); MEAN CORPUSCULAR HEMOGLOBIN 27.9 pg (27.0-33.0); MEAN CORPUSCULAR HGB CONC 31.7 g/dl (32.0-36.5); MEAN CORPUSCULAR VOLUME 88.1 fl (80.0-96.0); MONO # 1.2 10^3/uL (0.0-0.8); MONO % 18.7 % (0.0-5.0); NEUTROPHILS % 59.9 % (36.0-66.0); PLATELET COUNT, AUTOMATED 254 10^3/uL (150-450); RED BLOOD COUNT 4.05 10^6/uL (4.30-6.10); WHITE BLOOD COUNT 6.6 10^3/uL (4.0-10.0)
[2018-12-20 05:44] LABS: ALBUMIN 2.8 GM/DL (3.2-5.2); ALT/SGPT 264 U/L (12-78); BILIRUBIN,TOTAL 0.6 MG/DL (0.2-1.0); BLOOD UREA NITROGEN 11 MG/DL (7-18); CALCIUM LEVEL 8.2 MG/DL (8.8-10.2); CARBON DIOXIDE LEVEL 41 MEQ/L (21-32); CHLORIDE LEVEL 96 MEQ/L (98-107); CREATININE FOR GFR 0.63 MG/DL (0.70-1.30); GLOMERULAR FILTRATION RATE > 60.0 (>49); GLUCOSE, FASTING 79 MG/DL (70-100); MAGNESIUM LEVEL 1.3 MG/DL (1.8-2.4); POTASSIUM SERUM 3.2 MEQ/L (3.5-5.1); SODIUM LEVEL 138 MEQ/L (136-145); TOTAL PROTEIN 5.8 GM/DL (6.4-8.2)
[2018-12-20] MEDS: CIPROFLOXACIN 500 MG TAB PO SCH ×2 (06:00→18:30)
[2018-12-20] MEDS ORDERED: POTASSIUM CHLORIDE 10 MEQ SR TABLET PO ONE ×3 (06:00→07:45)
[2018-12-20] MEDS: MEROPENEM INJ 1 GM in IV 1 EA IV SCH (06:04)
[2018-12-20] MEDS: HEPARIN SOD (PORCINE) 5000 UNITS/ML VIAL SQ SCH ×3 (06:04→21:42)
[2018-12-20] MEDS: TIOTROPIUM INHALER/CAPSULE (SPIRIVA) INH SCH (07:55)
[2018-12-20] MEDS: SYMBICORT 160/4.5MCG INHALER 6GM INH SCH ×2 (07:55→19:42)
[2018-12-20] MEDS: PANTOPRAZOLE 40MG TAB (PROTONIX) PO SCH (08:35)
[2018-12-20] MEDS: MULTIVITAMINS/MINERALS THERAP 1 TAB PO SCH (08:36)
[2018-12-20] MEDS: THIAMINE 100 MG TAB PO SCH (08:36)
[2018-12-20] MEDS: FUROSEMIDE 40 MG TAB PO SCH (08:36)
[2018-12-20] MEDS: CLOPIDOGREL 75 MG TAB PO SCH (08:36)
[2018-12-20] MEDS: CARVedilol 3.125 MG TAB PO SCH ×2 (08:37→20:36)
[2018-12-20] MEDS: ASPIRIN 325 MG TAB PO SCH (08:37)
[2018-12-20] MEDS: FOLIC ACID 1 MG TAB PO SCH (08:38)
[2018-12-20] MEDS: NEOSPORIN TOP OINT 15GM TOP SCH ×2 (08:38→21:41)
[2018-12-20] MEDS ORDERED: LISINOPRIL 5 MG TAB PO SCH ×2 (09:00→21:00)
[2018-12-20] MEDS: MAG SULF 1GM/100ML (MAG RUN) 1 GM in IV 1 EA IV SCH ×2 (10:13→11:46)
[2018-12-20] MEDS ORDERED: CIPROFLOXACIN 500 MG TAB PO SCH (11:00)
--- NOTE | 2018-12-20 11:17 | IPNPDOC ---
Date Seen The patient was seen on 12/20/18. Progress Note Subjective: Patient was seen and examined this morning lying comfortably in bed. Patient states his breathing is improved today from yesterday. He also feels his abdominal pain is improved. He denies any nausea, vomiting, or recurrent diarrhea. He does complain of some increased difficulty hearing today and states he is always def in his right ear. Objective: PHYSICAL EXAMINATION: VITAL SIGNS: See below. GENERAL: Lying in bed, appears alert, comfortable HEENT: Normocephalic, atraumatic, PERRLA, EOMI, moist mucous membranes CARDIOVASCULAR: Regular rate and rhythm, normal S1 and S2. No murmurs, rubs, or gallops appreciated RESPIRATORY: Diminished breath sounds bilaterally with prolonged expiratory phase. Diffuse expiratory wheezing bilaterally. No rhonchi or rales. ABDOMEN: Mildly tender in the upper abdomen to deep palpation, soft, nondistended, bowel sounds present, no masses or hepatosplenomegaly appreciated EXTREMITIES: No edema, No cyanosis. Pulses 2/4 in bilateral upper and lower extremities NEUROLOGIC: Alert and oriented to person, place, and time. Patient follows directions. Strength intact in bilateral upper and lower extremities. No focal deficits appreciated. PSYCHIATRIC: Mood and affect appropriate Lab results: See below Imaging: CXR 12/17: Small focal zone of atelectasis versus parenchymal scarring adjacent to the cardiac apex CT abdomen/pelvis 12/17: Small bilateral pleural effusions. Small volume of ascites. Mild wall thickening of the descending colon and sigmoid colon, nonspecific, but may represent colitis in the appropriate clinical setting. No bowel distension or obstruction. ECHO: 1. Normal global left ventricular systolic function. There were some features of grade 1 left ventricular diastolic dysfunction manifested by abnormal relaxation. 2. Aortic valve sclerosis with trace aortic radiation. 3. Mild mitral regurgitation. 4. Moderate tricuspid regurgitation with dilated right atrium and right ventricle, and moderately severe pulmonary hypertension. 5. The inferior vena cava is mildly enlarged, central venous pressure might be elevated. 6. Trace pericardial effusion noted. 7. The most recent echocardiogram in the system was on 11/01/2017 and at that time, LVEF was estimated at 40%. Assessment and plan: Patient is a 63-year-old male with a PMHx of End Stage COPD ( on 2L NC), HTN, R Sided Chronic CHF, Hx of TIA, Pulmonary HTN, Hx of Alcohol abuse, Depression and GERD who presented as a transfer from [facility] for hypotension and hypercapnic raspatory failure. Upon arrival, patient was rather be hypotensive and required aggressive IV fluid hydration. Patient was also was on BiPAP support. It was suspected that the patient was having a COPD exacerbation and likely infectious colitis. Problems: Hypotension / Shock - possibly 2/2 hypovolemic 2/2 volume loss from diarrhea, less likely septic 2/2 infection, unlikely 2/2 cardiogenic, unlikely 2/2 adrenal insufficiency - Patient has received 2 L of fluid hydration at [facility]; received an additional 3 L bolus upon arrival - Patient's blood pressure initially had responded, however, had required central line placement and pressor support, off pressors since 12/17 - Blood pressure stabalized now and pt has been hypertensive, home HTN medications have been restarted for better control - Cortisol levels high, no evidence of adrenal insufficiency - c/w Broad spectrum antibiotics, likely colitis (Meropenem switched today to Cipro/Flagyl day #5 of ) Leukocytosis - likely 2/2 infectious etiology, possibly 2/2 reactive etiology - At [facility], patient had a normal white blood cell count without any fevers noted - Upon arrival at [facility], patient had an elevated WBC count; however again, remained afebrile, Lactic acid has remained normal - Patient did have some complaints of diffuse abdominal pain. However, CT scan was deferred given his hypotension - Clinically patient has not had any further episodes of diarrhea - UA appears possibly infected, Urine cultures negative, blood cultures negative @ 24 hrs, respiratory panel negative - Imaging results as above, chest x-ray did not show any signs of pneumonia, CT abdomen/pelvis did show evidence of colitis. - c/w abx for colitis switched today to Cipro/Flagyl (day #5 of 7) Acute on chronic hypercarbic respiratory failure with respiratory acidosis - likely 2/2 compensation for volume/electrolyte loss from diarrhea - Patient's breathing continues to improve, Physical does reveal significant wheezing bilaterally - Patient serial ABGs have shown improvement acidosis and PCO2 retention - CXR without any evidence of pneumonia - s/p Solumedrol loading dose, pt not in acute COPD exacerbation so steroids have been discontinued. 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/poster on consultation; appreciate their input Diarrhea; 2/2 colitis, less likely 2/2 possible GI bleed - Patient has had an episode of rectal bleeding while in the ICU; small red mucoid rectal output - No further episodes have been noted, H/H has remained stable - GI panel pending, CT abd/pelvis showed evidence of colitis - continue Protonix 40 IV BID, continue abx coverage with Meropenem switched today to Cipro/Flagyl (day #5 of 7) - Continue regular diet as tolerated Acute renal failure - likely 2/2 pre-renal etiology - hypotension and hypov olemia - Patient appears to be at normal renal function last year - Creatinine on arrival was 2.96; has improved s/p IV fluid resuscitation and currently WNL Hyponatremia - likely 2/2 hypotonic hyponatremia - likely 2/2 hypovolemia, possibly 2/2 euvolemic etiologies - Patient's sodium has slowly improved throughout hospitalization, currently remains WNL - Clinically appears euvolemic - TSH/free T4 WNL Hyperkalemia - improved s/p IV fluid hydration Elevated troponin - likely 2/2 demand ischemia - Currently patient denies any complaint of chest pain - EKG has been compared to prior and does not show any significant change. Does still reveal right bundle-branch block - Troponins have trended up to a peak of 4.03, initial trend down and have been stable - Discussed ACS protocol with Cardiology; currently no BB, JOSE-I, Nitroglycerine given hypotension, no Statin given Transaminitis, no anticoagulation - given rectal bleed - Echocardiogram results as above, normal EF based on report - continue aspirin 325 mg and Plavix 75 mg - Cardiology on consultation; appreciate their input Transaminitis - possibly 2/2 hypotension, possibly 2/2 alcoholism, possibly 2/2 infection - trending down, continue to monitor daily - ammonia level normal - hepatitis panel negative HTN - pt presented hypotensive requiring IV fluid resuscitation and pressors. Hypotension has since resolved. Will begin to restart home blood pressure medication as indicated Suspected alcoholism - CIWA protocol, supplement thiamin, folate, and multivitamin Chronic systolic CHF - ECHO 10/2017: EF 40% - start diuresis in the setting of volume overload GI prophylaxis: continue Protonix PO BID DVT prophylaxis: continue Heparin SQ Disposition: PCU pending clinical improvement, PT/OT clearance ATTENDING NOTE I have personally evaluated and examined the patient. Discussed with residents and student regarding plan of care and agree with the above assessment and plan. VS, I&O, 24H, Fishbone Vital Signs/I&O Vital Signs Date Time Temp Pulse Resp B/P (MAP) Pulse Ox O2 Delivery O2 Flow Rate FiO2 12/20/18 10:13 165/83 12/20/18 09:00 1.0 12/20/18 08:37 85 12/20/18 08:00 99.3 20 93 Nasal Cannula 12/19/18 07:21 25 I&O- Last 24 Hours up to 6 AM 12/20/18 05:59 Intake Total 2070 ml Output Total 3825 ml Balance -1755 ml Laboratory Data 24H LABS Laboratory Tests 2 12/19/18 11:45: Blood Gas Bicarbonate Standard 34.3H, Arterial Blood pH 7.336L, Arterial Blood Partial Pressure CO2 75.1*H, Arterial Blood Partial Pressure O2 76.9, Arterial Blood Total CO2 41.6H, Arterial Blood HCO3 39.2H, Arterial Blood Base Excess 10.6H, Arterial Blood Oxygen Saturation 94.9L 12/19/18 11:59: Bedside Glucose (Misc Panel) 104 12/19/18 17:50: Blood Gas Bicarbonate Standard 28.6H, Arterial Blood pH 7.315L, Arterial Blood Partial Pressure CO2 65.5*H, Arterial Blood Partial Pressure O2 75.2, Arterial Blood Total CO2 34.6H, Arterial Blood HCO3 32.6H, Arterial Blood Base Excess 4.7H, Arterial Blood Oxygen Saturation 94.5L 12/20/18 05:00: Immature Granulocyte % (Auto) 0.3, Neutrophils (%) (Auto) 59.9, Lymphocytes (%) (Auto) 20.7L, Monocytes (%) (Auto) 18.7H, Eosinophils (%) (Auto) 0.2, Basophils (%) (Auto) 0.2, Neutrophils # (Auto) 4.0, Lymphocytes # (Auto) 1.4L, Monocytes # (Auto) 1.2H, Eosinophils # (Auto) 0.0, Basophils # (Auto) 0.0, Nucleated Red Blood Cells % (auto) 0.0, Anion Gap 1L, Glomerular Filtration Rate > 60.0, Rob cium Level 8.2L, Magnesium Level 1.3L, Total Bilirubin 0.6, Aspartate Amino Transf (AST/SGOT) 67H, Alanine Aminotransferase (ALT/SGPT) 264H, Alkaline Phosphatase 94, Total Protein 5.8L, Albumin 2.8L, Albumin/Globulin Ratio 0.93L CBC/BMP Laboratory Tests 12/20/18 05:00 Microbiology Microbiology 12/16/18 Urine Culture - Final, Complete 12/16/18 Blood Culture - Preliminary, Resulted No Growth after 72 hours. All specime... 12/16/18 Respiratory Virus Panel (PCR) ([facility]) - Final, Complete 12/16/18 Blood Culture - Preliminary, Resulted No Growth after 72 hours. All specime... ANDREW GUY PGY-1 Dec 20, 2018 11:17 AMBER ORTEZ MD Dec 20, 2018 14:42
--- NOTE | 2018-12-20 11:43 | IPN ---
DATE: 12/20/2018 NOTE: Mr. Spence did very well overnight. He has been off the noninvasive mechanical ventilator for over 24 hours. He indicates no distress. Denies pain, though he is tender still in the left lower quadrant on examination. He did not cough during the evaluation. He spoke very little. He is hard of hearing, but it did seem more difficult for him to hear today and we communicated by written notes. No concerns expressed. OBJECTIVE: PHYSICAL EXAMINATION: GENERAL: Mr. Spence is lying in bed in no acute distress. No cough during the evaluation. VITAL SIGNS: Temperature 99.3 which is his T-max, pulse 85, blood pressure 165/83, and SPO2 of 93% on 1 liter by nasal cannula. HEENT: Anicteric. Nares moist mucosa. Oropharynx moist mucosa. Poor dentition. LUNGS: Symmetric excursion, markedly diminished air entry. Scattered end-expiratory wheezes. Few crackles at the left base. No rhonchi. Prolonged expiratory phase. No accessory muscle usage or retractions. CARDIOVASCULAR: Distant, regular rate and rhythm with a normal S1-S2, no murmur, rub or gallop appreciated. ABDOMEN: Positive bowel sounds, soft, mild tenderness at the left lower quadrant. No hepatosplenomegaly or masses appreciated. EXTREMITIES: Warm and well-perfused, without clubbing, cyanosis, minimal pedal edema bilaterally, palpable pedal pulses bilaterally. LABORATORY DATA: CBC from this morning showed a hemoglobin 11.3, hematocrit 35.7, platelet count 254,000, white blood cell count 6600 with a differential of 60% neutrophils, 21% lymphocytes, 19% monocytes. Chemistry shows sodium 138, potassium 3.2, chloride 96, bicarbonate 41, anion gap 1, BUN 11, creatinine 0.6, glucose 79, calcium 8.2, magnesium 1.3, total bilirubin 0.6, AST 67, ALT 264, alkaline phosphatase 94, total protein 5.8, albumin 2.8. Echocardiogram from 12/17/2018 showed normal LV size and function with an EF of 55-60%. Some features of grade 1 left diastolic dysfunction. Moderately severe pulmonary hypertension. Yesterday's intake and output was 2370 in and 4075 out making him negative 1705. Thus far today 900 in and 600 out making him positive 300. IMPRESSION: 1. Acute on chronic respiratory failure, resolving. 2. Acute kidney insufficiency, resolving. 3. Chronic obstructive pulmonary disease (COPD), likely end-stage with hypercapnia and hypoxemia baseline. He is not felt to have had an exacerbation. 4. Elevated troponins, followed by cardiology. 5. Moderately severe pulmonary hypertension on echocardiogram this admission. 6. EtOH abuse, on CIWA protocol but has not required any medications. 7. Tobacco usage, ongoing at the time of admission. RECOMMENDATIONS: 1. Would continue on his IC/LABA and LAMA medications. 2. Continue on an as-needed bronchodilators. 3. At this time I have no further recommendations. Agree with transfer to PCU. The sample tester service will sign off at this time. Please call if there is further questions or problems. 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 IVORY
[2018-12-20] MEDS: metroNIDAZOLE (FLAGYL) 500 MG TAB PO SCH ×2 (14:17→21:41)
[2018-12-20] MEDS: ATORVASTATIN 20 MG TAB PO SCH (20:35)
--- NOTE | 2018-12-20 20:46 | IPN ---
DATE: 12/20/2018 Mr. North Spence was seen earlier today, he was sitting in his bed in no acute distress at rest. He is very hard of hearing and his nurse was writing all of the questions for him. There is no report of chest pain. He received Lasix today and has significant diuresis. He was wheezing earlier today. There is no report of our palpitations. There is no report of bleeding. There is no focal manifestation. There was no nausea or vomiting or diarrhea or hematemesis. PHYSICAL EXAMINATION: Patient is alert and awake in no acute distress at rest and very present. His most recent vital signs reveal blood pressure of 165/77 with a pulse of 80, respiration 18 and his maximum temperature was 98.7 degrees Fahrenheit with an oxygen saturation of 95% on 1 liter cannula. He has a negative fluid balance of 1.7 liters for 12/19/2018 and so far today is 1.1 liters. Examination of the head: Atraumatic. Neck is supple with extended jugular. The lungs revealed minimal wheezing bilaterally with for lunch and respiratory phase of the respiration. Heart examination revealed a regular heart without gallops. The PMI is displaced inferiorly. There is no rub. Abdomen is soft. Extremities revealed only trace bilateral, edema. Neurological exam grossly is negative for focal deficit. LABORATORY DATA: I BMP done earlier today revealed a sodium 138, potassium 3.2, chloride 96, CO2 of 41, BUN 11, creatinine 0.63, GFR more than 60 fasting glucose 79 and calcium 8.2. Next the enzymes revealed a AST of 67 with ALT of 264 and alkaline phosphatase 94. Serum magnesium 1.3. CBC done today revealed a WBC of 6.4, myoglobin 11.3, hematocrit 35.7 and platelet 254,000. Mr. North Spence seems to be stable from a cardiac point of view. He was recently seen over the weekend when he was admitted with hypovolemic shock and was found to have abnormal serum troponin. He was treated there with IV fluids and started on IV antibiotics for presumed sepsis. He responded very well. He had an echocardiogram done and that revealed a normal global left ventricular systolic function. Lately, his blood pressure has been elevated, almost all day. He was started on Lisinopril and this will be increased. He has not been having any chest pain. Will continue his current cardiac meds, on a statin as well as beta fifi, and JOSE inhibitor, aspirin therapy with aspirin and Plavix. He is now also on diuretics. When he presented to the hospital, his liver function test was markedly elevated and they are been improving. He will be monitored for now on current cardiac meds. His electrolytes abnormalities: His hypomagnesemia and hypokalemia being corrected. It was a pleasure to participate the care of Mr. North Spence for his underlying cardiac condition. I will continue to monitor along with you as needed. Please do not hesitate to call if any questions. MIRANDAD
[2018-12-20] MEDS: ONDANSETRON 4MG/2ML VIAL (J2405) IV PRN (21:46)
[2018-12-21] VITALS: BP 147/78
[2018-12-21 04:00] VITALS: BP 155/85
[2018-12-21 05:08] LABS: BASO % 0.1 % (0.0-1.0); EOS # 0.1 10^3/uL (0.0-0.5); EOS % 1.6 % (0.0-3.0); HEMATOCRIT 38.3 % (42.0-52.0); HEMOGLOBIN 11.7 g/dl (13.5-17.5); LYMPH # 1.2 10^3/uL (1.5-5.0); MEAN CORPUSCULAR HEMOGLOBIN 26.9 pg (27.0-33.0); MEAN CORPUSCULAR HGB CONC 30.5 g/dl (32.0-36.5); MONO # 1.3 10^3/uL (0.0-0.8); MONO % 19.5 % (0.0-5.0); NEUTROPHILS # 4.2 10^3/uL (1.5-8.5); NEUTROPHILS % 60.7 % (36.0-66.0); PLATELET COUNT, AUTOMATED 255 10^3/uL (150-450); RED BLOOD COUNT 4.35 10^6/uL (4.30-6.10); WHITE BLOOD COUNT 6.9 10^3/uL (4.0-10.0)
[2018-12-21] MEDS: metroNIDAZOLE (FLAGYL) 500 MG TAB PO SCH ×3 (05:46→21:09)
[2018-12-21] MEDS: HEPARIN SOD (PORCINE) 5000 UNITS/ML VIAL SQ SCH ×3 (05:47→21:20)
[2018-12-21] MEDS: CIPROFLOXACIN 500 MG TAB PO SCH ×2 (05:47→17:59)
[2018-12-21 06:21] LABS: ALBUMIN 2.8 GM/DL (3.2-5.2); ALT/SGPT 214 U/L (12-78); BILIRUBIN,TOTAL 0.8 MG/DL (0.2-1.0); BLOOD UREA NITROGEN 7 MG/DL (7-18); CALCIUM LEVEL 8.3 MG/DL (8.8-10.2); CARBON DIOXIDE LEVEL 45 MEQ/L (21-32); CHLORIDE LEVEL 90 MEQ/L (98-107); CREATININE FOR GFR 0.54 MG/DL (0.70-1.30); GLOMERULAR FILTRATION RATE > 60.0 (>49); GLUCOSE, FASTING 90 MG/DL (70-100); MAGNESIUM LEVEL 1.4 MG/DL (1.8-2.4); POTASSIUM SERUM 3.2 MEQ/L (3.5-5.1); SODIUM LEVEL 139 MEQ/L (136-145); TOTAL PROTEIN 5.7 GM/DL (6.4-8.2)
[2018-12-21] MEDS ORDERED: MAG SULF 1GM/100ML (MAG RUN) 1 GM in IV 1 EA IV ONE ×2 (07:30→08:30)
[2018-12-21 08:00] VITALS: BP 154/93
[2018-12-21] MEDS: TIOTROPIUM INHALER/CAPSULE (SPIRIVA) INH SCH (08:37)
[2018-12-21] MEDS: SYMBICORT 160/4.5MCG INHALER 6GM INH SCH ×2 (08:37→19:57)
[2018-12-21] MEDS: CARVedilol 3.125 MG TAB PO SCH ×2 (09:12→21:10)
[2018-12-21] MEDS: LISINOPRIL 20 MG TAB PO SCH (09:12)
[2018-12-21] MEDS: CLOPIDOGREL 75 MG TAB PO SCH (09:12)
[2018-12-21] MEDS: PANTOPRAZOLE 40MG TAB (PROTONIX) PO SCH (09:12)
[2018-12-21] MEDS: FOLIC ACID 1 MG TAB PO SCH (09:12)
[2018-12-21] MEDS: ASPIRIN 325 MG TAB PO SCH (09:12)
--- NOTE | 2018-12-21 09:12 | IPN ---
DATE: 12/21/2018 Mr. Spence is much improved. He is off his BiPAP. Unfortunately he is nearly completely deaf so communication with him has been very challenging and mostly in writing but nevertheless he denies any chest discomfort. Vital signs: Blood pressure this morning was 155/85 and has been as least that high or higher throughout the day and night yesterday, heart rate is in 80s, sinus rhythm. He is afebrile. Saturation 94% on 1 liter of oxygen by nasal cannula. His fluid balance yesterday was recorded as negative 1400. Weight has not been recorded this morning as yet. He is alert and probably oriented. His JVP does not appear high. Lungs reveal occasional crackles throughout, more on the left than right. I do not appreciate any wheezing. Heart exam reveals regular rhythm. I do not appreciate any distinct gallop or murmur. Abdomen is soft, nontender. Extremities are free of edema. LABORATORIES: Basic metabolic panel is normal with the exception of potassium 3.2, magnesium is 1.4, albumin is 2.8. CBC hemoglobin 11.7, hematocrit 38 ASSESSMENT/PLAN: Mr. Spence is 63-year-old man who has longstanding history of smoking and alcoholism. He presented with respiratory failure that was probably triggered by GI symptoms of nausea, vomiting and diarrhea. He is now much improved and probably close to his baseline as far as respiratory status is concerned. Cardiology was involved because he had elevated troponin without any obvious evolution on ECG. Echocardiogram revealed preserved systolic function, but dilated and severely hypokinetic right ventricle with associated severe pulmonary hypertension. Because troponin did not have any obvious trend I assume and believe that the troponin elevation was principally to right ventricle strain. My recommendation would be to continue current management. I am going to advance the dose of lisinopril to accomplish better blood pressure control and I would continue diuresing. I do not believe he is a candidate for coronary intervention in this setting unless his condition markedly improves further.
[2018-12-21] MEDS: NEOSPORIN TOP OINT 15GM TOP SCH ×2 (09:13→21:11)
[2018-12-21] MEDS: MULTIVITAMINS/MINERALS THERAP 1 TAB PO SCH (09:13)
[2018-12-21] MEDS: THIAMINE 100 MG TAB PO SCH (09:13)
[2018-12-21] MEDS: FUROSEMIDE 40 MG TAB PO SCH (09:13)
[2018-12-21] MEDS ORDERED: POTASSIUM CHLORIDE 10 MEQ SR TABLET PO ONE (09:30)
--- NOTE | 2018-12-21 11:10 | IPNPDOC ---
Date Seen The patient was seen on 12/21/18. Progress Note Subjective: Patient was seen and examined this morning lying comfortably in bed. Patient states his breathing is pretty much back to his baseline. He continues to have abdominal pain which is worst in his epigastric and left upper quadrant areas. He states he is eating okay without any nausea or vomiting. He denies any episodes of diarrhea. He states he continues to have a difficult time hearing. Objective: PHYSICAL EXAMINATION: VITAL SIGNS: See below. GENERAL: Lying in bed, appears alert, comfortable HEENT: Normocephalic, atraumatic, PERRLA, EOMI, moist mucous membranes CARDIOVASCULAR: Regular rate and rhythm, normal S1 and S2. No murmurs, rubs, or gallops appreciated RESPIRATORY: Diminished breath sounds bilaterally with prolonged expiratory phase. Diffuse expiratory wheezing bilaterally. No rhonchi or rales. ABDOMEN: Mildly tender in the upper abdomen to deep palpation, soft, n ondistended, bowel sounds present, no masses or hepatosplenomegaly appreciated EXTREMITIES: No edema, No cyanosis. Pulses 2/4 in bilateral upper and lower extremities NEUROLOGIC: Alert and oriented to person, place, and month/year. Patient follows directions when written on paper but is [place]. Strength intact in bilateral upper and lower extremities. No focal deficits appreciated. PSYCHIATRIC: Mood and affect appropriate Lab results: See below Imaging: CXR 12/17: Small focal zone of atelectasis versus parenchymal scarring adjacent to the cardiac apex CT abdomen/pelvis 12/17: Small bilateral pleural effusions. Small volume of ascites. Mild wall thickening of the descending colon and sigmoid colon, nonspecific, but may represent colitis in the appropriate clinical setting. No bowel distension or obstruction. ECHO: 1. Normal global left ventricular systolic function. There were some featu res of grade 1 left ventricular diastolic dysfunction manifested by abnormal relaxation. 2. Aortic valve sclerosis with trace aortic radiation. 3. Mild mitral regurgitation. 4. Moderate tricuspid regurgitation with dilated right atrium and right ventricle, and moderately severe pulmonary hypertension. 5. The inferior vena cava is mildly enlarged, central venous pressure might be elevated. 6. Trace pericardial effusion noted. 7. The most recent echocardiogram in the system was on 11/01/2017 and at that time, LVEF was estimated at 40%. Assessment and plan: Patient is a 63-year-old male with a PMHx of End Stage COPD ( on 2L NC), HTN, R Sided Chronic CHF, Hx of TIA, Pulmonary HTN, Hx of Alcohol abuse, Depression and GERD who presented as a transfer from [facility] for hypotension and hypercapnic raspatory failure. Upon arrival, patient was rather be hypotensive and required aggressive IV fluid hydration. Patient was also was on BiPAP support. It was suspected that the patient was having a COPD exacerbation and likely infectious colitis. Problems: Hypotension / Shock - possibly 2/2 hypovolemic 2/2 volume loss from diarrhea, less likely septic 2/2 infection, unlikely 2/2 cardiogenic, unlikely 2/2 adrenal insufficiency - Patient has received 2 L of fluid hydration at [facility]; received an additional 3 L bolus upon arrival - Patient's blood pressure initially had responded, however, had required central line placement and pressor support, off pressors since 12/17 - Blood pressure stabalized now and pt has been hypertensive, home HTN medications have been restarted for better control - Cortisol levels high, no evidence of adrenal insufficiency - c/w Broad spectrum antibiotics, likely colitis (Meropenem switched to Cipro/Flagyl day #6 of 7) Leukocytosis - likely 2/2 infectious etiology, possibly 2/2 reactive etiology - At [facility], patient had a normal white blood cell count without any fevers noted - Upon arrival at [facility], patient had an elevated WBC count; however again, remained afebrile, Lactic acid has remained normal - Patient did have some complaints of diffuse abdominal pain. However, CT scan was deferred given his hypotension - Clinically patient has not had any further episodes of diarrhea - UA appears possibly infected, Urine cultures negative, blood cultures negative @ 24 hrs, respiratory panel negative - Imaging results as above, chest x-ray did not show any signs of pneumonia, CT abdomen/pelvis did show evidence of colitis. - c/w abx for colitis Cipro/Flagyl (day #6 of 7) Acute on chronic hypercarbic respiratory failure with respiratory acidosis - likely 2/2 compensation for volume/electrolyte loss from diarrhea - Patient's breathing continues to improve, Physical does reveal significant wheezing bilaterally - Patient serial ABGs have shown improvement acidosis and PCO2 retention - CXR without any evidence of pneumonia - s/p Solumedrol loading dose, pt not in acute COPD exacerbation so steroids have been discontinued. 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/manager corporate marketing on consultation; appreciate their input Diarrhea; 2/2 colitis, less likely 2/2 possible GI bleed - Patient has had an episode of rectal bleeding while in the ICU; small red mucoid rectal output - No further episodes have been noted, H/H has remained stable - GI panel pending, CT abd/pelvis showed evidence of colitis - continue Protonix 40 IV BID, continue abx coverage with Cipro/Flagyl (day #6 of 7) - Continue regular diet as tolerated Acute renal failure - likely 2/2 pre-renal etiology - hypotension and hypovolemia - Patient appears to be at normal renal function last year - Creatinine on arrival was 2.96; has improved s/p IV fluid resuscitation and currently WNL Hyponatremia - likely 2/2 hypotonic hyponatremia - likely 2/2 hypovolemia, possibly 2/2 euvolemic etiologies - Patient's sodium has slowly improved throughout hospitalization, currently remains WNL - Clinically appears euvolemic, TSH/free T4 WNL Hyperkalemia - improved s/p IV fluid hydration Elevated troponin - likely 2/2 demand ischemia - Currently patient denies any complaint of chest pain - EKG has been compared to prior and does not show any significant change. Does still reveal right bundle-branch block - Troponins trended up to a peak of 4.03, initial trend down and stabilized - Echocardiogram results as above - continue aspirin 325 mg and Plavix 75 mg, JOSE-I, beta fifi; no statin given transaminitis, no anticoagulation given rectal bleed - Cardiology on consultation; appreciate their input Transaminitis - possibly 2/2 hypotension, possibly 2/2 alcoholism, possibly 2/2 infection - trending down, continue to monitor daily - ammonia level normal - hepatitis panel negative HTN - pt presented hypotensive requiring IV fluid resuscitation and pressors. Hypotension has since resolved. Will continue to adjust home medications for adequate control Suspected alcoholism - supplement thiamin, folate, and multivitamin Chronic systolic CHF - ECHO 10/2017: EF 40% - continue home dose of lasix GERD - PPI daily Hard of hearing - Speech therapy to evaluate for communication strategies DVT prophylaxis: continue Heparin SQ Disposition: Med/surg pending continual clinical improvement and PT/OT clearance ATTENDING NOTE I have personally evaluated and examined the patient. Discussed with residents and student regarding plan of care and agree with the above assessment and plan. VS, I&O, 24H, Fishbone Vital Signs/I&O Vital Signs Date Time Temp Pulse Resp B/P (MAP) Pulse Ox O2 Delivery O2 Flow Rate FiO2 12/21/18 09:12 90 154/93 12/21/18 08:37 16 12/21/18 08:00 98.1 93 Nasal Cannula 1.0 12/19/18 07:21 25 I&O- Last 24 Hours up to 6 AM 12/21/18 06:00 Intake Total 1760 ml Output Total 3700 ml Balance -1940 ml Laboratory Data 24H LABS Laboratory Tests 2 12/21/18 04:48: Immature Granulocyte % (Auto) 0.1, Neutrophils (%) (Auto) 60.7, Lymphocytes (%) (Auto) 18.0L, Monocytes (%) (Auto) 19.5H, Eosinophils (%) (Auto) 1.6, Basophils (%) (Auto) 0.1, Neutrophils # (Auto) 4.2, Lymphocytes # (Auto) 1.2L, Monocytes # (Auto) 1.3H, Eosinophils # (Auto) 0.1, Basophils # (Auto) 0.0, Nucleated Red Blood Cells % (auto) 0.0, Anion Gap 4L, Glomerular Filtration Rate > 60.0, Calcium Level 8.3L, Magnesium Level 1.4L, Total Bilirubin 0.8, Aspartate Amino Transf (AST/SGOT) 49H, Alanine Aminotransferase (ALT/SGPT) 214H, Alkaline Phosphatase 88, Total Protein 5.7L, Albumin 2.8L, Albumin/Globulin Ratio 0.97L CBC/BMP Laboratory Tests 12/21/18 04:48 Microbiology Microbiology 12/16/18 Urine Culture - Final, Complete 12/16/18 Blood Culture - Preliminary, Resulted No Growth after 72 hours. All specime... 12/16/18 Respiratory Virus Panel (PCR) ([facility]) - Final, Complete 12/16/18 Blood Culture - Preliminary, Resulted No Growth after 72 hours. All specime... ANDREW GUY PGY-1 Dec 21, 2018 11:10 AMBER ORTEZ MD Dec 21, 2018 13:39
[2018-12-21 12:22] VITALS: BP 147/85
[2018-12-21] MEDS: ONDANSETRON 4MG/2ML VIAL (J2405) IV PRN (21:09)
[2018-12-21] MEDS: ATORVASTATIN 20 MG TAB PO SCH (21:10)
[2018-12-21] MEDS: ACETAMINOPHEN TAB 650MG DOSE (2X325MG) PO PRN (21:10)
[2018-12-21 22:00] VITALS: BP 148/80
[2018-12-22] MEDS: HEPARIN SOD (PORCINE) 5000 UNITS/ML VIAL SQ SCH ×3 (05:57→21:28)
[2018-12-22] MEDS: metroNIDAZOLE (FLAGYL) 500 MG TAB PO SCH ×3 (05:57→21:29)
[2018-12-22] MEDS: CIPROFLOXACIN 500 MG TAB PO SCH ×2 (05:57→17:18)
[2018-12-22] MEDS: ACETAMINOPHEN TAB 650MG DOSE (2X325MG) PO PRN ×2 (05:57→11:42)
[2018-12-22 06:00] VITALS: BP 155/76
[2018-12-22] MEDS: ONDANSETRON 4MG/2ML VIAL (J2405) IV PRN (06:09)
[2018-12-22 06:20] LABS: BASO % 0.3 % (0.0-1.0); EOS # 0.1 10^3/uL (0.0-0.5); EOS % 1.2 % (0.0-3.0); HEMATOCRIT 35.3 % (42.0-52.0); HEMOGLOBIN 11.4 g/dl (13.5-17.5); LYMPH # 1.3 10^3/uL (1.5-5.0); LYMPH % 19.4 % (24.0-44.0); MEAN CORPUSCULAR HEMOGLOBIN 27.5 pg (27.0-33.0); MEAN CORPUSCULAR HGB CONC 32.3 g/dl (32.0-36.5); MEAN CORPUSCULAR VOLUME 85.3 fl (80.0-96.0); MONO # 1.3 10^3/uL (0.0-0.8); NEUTROPHILS % 58.8 % (36.0-66.0); PLATELET COUNT, AUTOMATED 254 10^3/uL (150-450); RED BLOOD COUNT 4.14 10^6/uL (4.30-6.10); WHITE BLOOD COUNT 6.7 10^3/uL (4.0-10.0)
[2018-12-22 06:52] LABS: ALT/SGPT 174 U/L (12-78); BILIRUBIN,TOTAL 1.1 MG/DL (0.2-1.0); BLOOD UREA NITROGEN 9 MG/DL (7-18); CALCIUM LEVEL 8.3 MG/DL (8.8-10.2); CARBON DIOXIDE LEVEL 45 MEQ/L (21-32); CHLORIDE LEVEL 84 MEQ/L (98-107); CREATININE FOR GFR 0.56 MG/DL (0.70-1.30); GLOMERULAR FILTRATION RATE > 60.0 (>49); GLUCOSE, FASTING 83 MG/DL (70-100); MAGNESIUM LEVEL 1.3 MG/DL (1.8-2.4); POTASSIUM SERUM 3.4 MEQ/L (3.5-5.1); SODIUM LEVEL 132 MEQ/L (136-145)
[2018-12-22] MEDS: SYMBICORT 160/4.5MCG INHALER 6GM INH SCH ×2 (07:33→20:52)
[2018-12-22] MEDS: TIOTROPIUM INHALER/CAPSULE (SPIRIVA) INH SCH (07:33)
--- NOTE | 2018-12-22 08:03 | IPN ---
DATE: 12/22/2018 Mr. Spence was moved out of intensive care unit (ICU) to the medical surgical unit. He is still monitored though. It looks like he is overall doing much better. His oxygen demands have dropped markedly. Unfortunately, he is almost completely deaf. If I can gather from the information provided by him, it seems like this is a new issue and he did not have trouble hearing prior to this hospitalization. I could not answer his question whether this is going to get better or not. He denies having any chest discomfort yesterday He was able to ambulate a little with help. Vital Signs: Blood pressure this morning was 155/76. Heart rate is has been mostly in 70s and 80s. He is afebrile. Saturation is in low to mid 90s on 1 liter of oxygen. Fluid balance yesterday was recorded as negative 1700 mL. His weight has not been documented this morning. He is certainly alert and oriented. His jugular venous pulse (JVP is hard to tankman, it does not appear markedly elevated by my physical exam. Lungs reveal expiratory wheezes today bilaterally, more on the left than right. I do not appreciate any crackles. Heart exam reveals a regular rhythm. There is a murmur best heard at the apex, not very loud, maybe 1-2 out of 6 intensity that is holosystolic in nature. I do not appreciate any gallop. Abdomen is soft. No tenderness, rebound tenderness. No guarding. Extremities are free of edema. Neurologically, as much as I can gather, is intact. He certainly has intact speech and he moves all four extremities without difficulty. Laboratories: Basic metabolic panel with sodium 132, potassium 3.4, BUN 9, creatinine 0.6 and glucose 83. The liver function tests are improving and albumin is 3.0. CBC with WBC count 6.7, hemoglobin 11.4, hematocrit 35, and platelet count is 254,000. ASSESSMENT/PLAN: Mr. Spence is a 63-year-old man who has longstanding history of smoking and alcohol use. He is known to have severe pulmonary hypertension most likely related to underlying lung disease. He presented with acute respiratory failure likely brought on by nausea, vomiting and diarrhea and inability to compensate respiratory delgado due to compromised lung function. He was for several days on respiratory support by noninvasive means and has gotten better. Cardiology was involved because he had troponin elevation without any appreciable trend. I suspect that this was related to right ventricular strain rather than ischemic event. I would continue current supportive management. His blood pressure is still a little bit high, but I suspect that it will improve over next few days with ongoing use of diuretics and higher dose of JOSE inhibitors. Because he tends to run constantly hypokalemic, it is probably advisable to give a little bit of spironolactone in addition to furosemide that probably can be reduced. I will make these changes today. Otherwise, I would continue dual antiplatelet therapy and a statin. I do not plan any invasive measures, at least not in near future until we see how much the patient recovers.
[2018-12-22] MEDS: MULTIVITAMINS/MINERALS THERAP 1 TAB PO SCH (08:40)
[2018-12-22] MEDS: CLOPIDOGREL 75 MG TAB PO SCH (08:40)
[2018-12-22] MEDS: ASPIRIN 325 MG TAB PO SCH (08:40)
[2018-12-22] MEDS: MAG SULF 1GM/100ML (MAG RUN) 1 GM in IV 1 EA IV SCH ×2 (08:40→10:35)
[2018-12-22] MEDS: PANTOPRAZOLE 40MG TAB (PROTONIX) PO SCH (08:40)
[2018-12-22] MEDS: FUROSEMIDE 20 MG TAB PO SCH (08:41)
[2018-12-22] MEDS: CARVedilol 3.125 MG TAB PO SCH ×2 (08:41→21:29)
[2018-12-22] MEDS: THIAMINE 100 MG TAB PO SCH (08:41)
[2018-12-22] MEDS: LISINOPRIL 20 MG TAB PO SCH (08:41)
[2018-12-22] MEDS: FOLIC ACID 1 MG TAB PO SCH (08:41)
[2018-12-22] MEDS: SPIRONOLACTONE 12.5MG PER 1/2 TABLET PO SCH (08:41)
[2018-12-22] MEDS: NEOSPORIN TOP OINT 15GM TOP SCH ×2 (08:43→21:28)
[2018-12-22] MEDS ORDERED: MAG SULF 1GM/100ML (MAG RUN) 1 GM in IV 1 EA IV ONE (08:45)
[2018-12-22] MEDS ORDERED: ISOVUE-370 76% 100ML VIAL (Q9967) As Ordered ONE (09:47)
[2018-12-22] MEDS ORDERED: POTASSIUM CHLORIDE 10 MEQ SR TABLET PO ONE (11:00)
--- NOTE | 2018-12-22 11:15 | REP ---
CT brain: 12/22/2018. Indication: Hearing loss. Comparison: 11/01/2017. Technique: Axial images of the brain were obtained with and without IV contrast. 75 ml IV Isovue 378 were administered. Findings: There is no acute intracranial hemorrhage, acute cortical infarction, mass effect, hydrocephalus or pathologic contrast enhancement. Mild diffuse volume loss is present. The paranasal sinuses are essentially clear. Small left mastoid effusion is present without coalescence. Impression: No acute intracranial process. Electronically Signed by Milad Berry DO 12/22/2018 11:07 A
--- NOTE | 2018-12-22 11:21 | IPNPDOC ---
Date Seen The patient was seen on 12/22/18. Progress Note Subjective: Patient was seen and examined this morning lying comfortably in bed. He still is having a difficult time hearing and can only be communicated with by writing down questions on paper. He states he continues to have upper abdominal pain. He denies any nausea and vomiting and states he is eating ok. He denies any diarrhea. Objective: PHYSICAL EXAMINATION: VITAL SIGNS: See below. GENERAL: Lying in bed, appears alert, comfortable HEENT: Normocephalic, atraumatic, PERRLA, EOMI, moist mucous membranes CARDIOVASCULAR: Regular rate and rhythm, normal S1 and S2. No murmurs, rubs, or gallops appreciated RESPIRATORY: Diminished breath sounds bilaterally with prolonged expiratory phas e. Diffuse expiratory wheezing bilaterally. No rhonchi or rales. ABDOMEN: Mildly tender in the upper abdomen to deep palpation, soft, nondistended, bowel sounds present, no masses or hepatosplenomegaly appreciated EXTREMITIES: No edema, No cyanosis. Pulses 2/4 in bilateral upper and lower extremities NEUROLOGIC: Alert and oriented to person, place, and month/year. Patient follows directions when written on paper but is [place]. Strength intact in bilateral upper and lower extremities. No focal deficits appreciated. PSYCHIATRIC: Mood and affect appropriate Lab results: See below Imaging: CXR 12/17: Small focal zone of atelectasis versus parenchymal scarring adjacent to the cardiac apex CT abdomen/pelvis 12/17: Small bilateral pleural effusions. Small volume of ascites. Mild wall thickening of the descending colon and sigmoid colon, nonspecific, but may represent colitis in the appropriate clinical setting. No bowel distension or obstruction. ECHO: 1. Normal global left ventricular systolic function. There were some features of grade 1 left ventricular diastolic dysfunction manifested by abnormal relaxation. 2. Aortic valve sclerosis with trace aortic radiation. 3. Mild mitral regurgitation. 4. Moderate tricuspid regurgitation with dilated right atrium and right ventricle, and moderately severe pulmonary hypertension. 5. The inferior vena cava is mildly enlarged, central venous pressure might be elevated. 6. Trace pericardial effusion noted. 7. The most recent echocardiogram in the system was on 11/01/2017 and at that time, LVEF was estimated at 40%. Assessment and plan: Patient is a 63-year-old male with a PMHx of End Stage COPD (on 2L NC), HTN, R Sided Chronic CHF, Hx of TIA, Pulmonary HTN, Hx of Alcohol abuse, Depression and GERD who presented as a transfer from [facility] for hypotension and hypercapnic raspatory failure. Upon arrival, patient was rather be hypotensive and required aggressive IV fluid hydration. Patient was also was on BiPAP support. It was suspected that the patient was having a COPD exacerbation and likely infectious colitis. Problems: Acute hearing loss in left ear - Pt has baseline deafness in the right ear and hearing loss in the left but now cannot hear on the left side much at all. - CT head to r/o acute stroke, pt had a negative CT head at [facility] before transfer to our facility - Will reach out to Stu (girlfriend) to understand his base line hearing loss and why he is deaf in the right ear. - Consider ENT consult if CT is negative Hypotension / Shock - possibly 2/2 hypovolemic 2/2 volume loss from diarrhea, less likely septic 2/2 infection, unlikely 2/2 cardiogenic, unlikely 2/2 adrenal insufficiency - Patient has received 2 L of fluid hydration at [facility]; received an additional 3 L bolus upon arrival - Patient's blood pressure initially had responded, however, had required central line placement and pressor support, off pressors since 12/17 - Blood pressure stabalized now and pt has been hypertensive, home HTN medications have been restarted for better control - Cortisol levels high, no evidence of adrenal insufficiency - c/w Broad spectrum antibiotics, likely colitis (Meropenem switched to Cipro/Flagyl day #7 of 7) Leukocytosis - likely 2/2 infectious etiology, possibly 2/2 reactive etiology - At [facility], patient had a normal white blood cell count without any fevers noted - Upon arrival at [facility], patient had an elevated WBC count; however again, remained afebrile, Lactic acid has remained normal - Patient did have some complaints of diffuse abdominal pain. However, CT scan was deferred given his hypotension - Clinically patient has not had any further episodes of diarrhea - UA appears possibly infected, Urine cultures negative, blood cultures negative @ 24 hrs, respiratory panel negative - Imaging results as above, chest x-ray did not show any signs of pneumonia, CT abdomen/pelvis did show evidence of colitis. - c/w abx for colitis Cipro/Flagyl (day #7 of 7) Acute on chronic hypercarbic respiratory failure with respiratory acidosis - likely 2/2 compensation for volume/electrolyte loss from diarrhea - Patient's breathing continues to improve, Physical does reveal significant wheezing bilaterally - Patient serial ABGs have shown improvement acidosis and PCO2 retention - CXR without any evidence of pneumonia - s/p Solumedrol loading dose, pt not in acute COPD exacerbation so steroids have been discontinued. 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; appreciate their input Diarrhea; 2/2 colitis, less likely 2/2 possible GI bleed - Patient has had an episode of rectal bleeding while in the ICU; small red mucoid rectal output - No further episodes have been noted, H/H has remained stable - GI panel pending, CT abd/pelvis showed evidence of colitis - continue Protonix 40 IV BID, continue abx coverage with Cipro/Flagyl (day #7 of 7) - Continue regular diet as tolerated Acute renal failure - likely 2/2 pre-renal etiology - hypotension and hypovolemia - Patient appears to be at normal renal function last year - Creatinine on arrival was 2.96; has improved s/p IV fluid resuscitation and currently WNL Hyponatremia - likely 2/2 hypotonic hyponatremia - likely 2/2 hypovolemia, possibly 2/2 euvolemic etiologies - Patient's sodium has slowly improved throughout hospitalization, currently remains WNL - Clinically appears euvolemic, TSH/free T4 WNL Hyperkalemia - improved s/p IV fluid hydration Elevated troponin - likely 2/2 demand ischemia - Currently patient denies any complaint of chest pain - EKG has been compared to prior and does not show any significant change. Does still reveal right bundle-branch block - Troponins trended up to a peak of 4.03, initial trend down and stabilized - Echocardiogram results as above - continue aspirin 325 mg and Plavix 75 mg, JOSE-I, beta fifi; no statin given transaminitis, no anticoagulation given rectal bleed - Cardiology on consultation; appreciate their input Transaminitis - possibly 2/2 hypotension, possibly 2/2 alcoholism, possibly 2/2 infection - trending down, continue to monitor daily - ammonia level normal - hepatitis panel negative HTN - pt presented hypotensive requiring IV fluid resuscitation and pressors. Hypotension has since resolved. Will continue to adjust home medications for adequate control Suspected alcoholism - supplement thiamin, folate, and multivitamin Chronic systolic CHF - ECHO 10/2017: EF 40% - continue home dose of lasix GERD - PPI daily Hard of hearing - Speech therapy to evaluate for communication strategies DVT prophylaxis: continue Heparin SQ Disposition: Med/surg pending continual clinical improvement and PT/OT clearance ATTENDING NOTE I have personally evaluated and examined the patient. Discussed with residents and student regarding plan of care and agree with the above assessment and plan. VS, I&O, 24H, Fishbone Vital Signs/I&O Vital Signs Date Time Temp Pulse Resp B/P (MAP) Pulse Ox O2 Delivery O2 Flow Rate FiO2 12/22/18 08:41 155/76 12/22/18 08:41 72 12/22/18 08:00 1.0 12/22/18 06:00 97.1 18 94 12/21/18 12:22 Nasal Cannula 12/19/18 07:21 25 I&O- Last 24 Hours up to 6 AM 12/22/18 06:00 Intake Total 1410 ml Output Total 3025 ml Balance -1615 ml Laboratory Data 24H LABS Laboratory Tests 2 12/22/18 05:51: Immature Granulocyte % (Auto) 0.3, Neutrophils (%) (Auto) 58.8, Lymphocytes (%) (Auto) 19.4L, Monocytes (%) (Auto) 20.0H, Eosinophils (%) (Auto) 1.2, Basophils (%) (Auto) 0.3, Neutrophils # (Auto) 4.0, Lymphocytes # (Auto) 1.3L, Monocytes # (Auto) 1.3H, Eosinophils # (Auto) 0.1, Basophils # (Auto) 0.0, Nucleated Red Blood Cells % (auto) 0.0, Anion Gap 3L, Glomerular Filtration Rate > 60.0, Calcium Level 8.3L, Magnesium Level 1.3L, Total Bilirubin 1.1H, Aspartate Amino Transf (AST/SGOT) 32, Alanine Aminotransferase (ALT/SGPT) 174H, Alkaline Phosphatase 84, Total Protein 6.0L, Albumin 3.0L, Albumin/Globulin Ratio 1.00 CBC/BMP Laboratory Tests 12/22/18 05:51 Microbiology Microbiology 12/16/18 Urine Culture - Final, Complete 12/16/18 Blood Culture - Final, Complete NO GROWTH AFTER 5 DAYS 12/16/18 Respiratory Virus Panel (PCR) ([facility]) - Final, Complete 12/16/18 Blood Culture - Final, Complete NO GROWTH AFTER 5 DAYS ANDREW GUY PGY-1 Dec 22, 2018 11:21 AMBER ORTEZ MD Dec 22, 2018 19:20
[2018-12-22 14:00] VITALS: BP 132/75
[2018-12-22] MEDS: ATORVASTATIN 20 MG TAB PO SCH (21:29)
[2018-12-22 22:00] VITALS: BP 146/89
[2018-12-23] MEDS: ACETAMINOPHEN TAB 650MG DOSE (2X325MG) PO PRN ×2 (00:58→21:06)
[2018-12-23] MEDS ORDERED: MAALOX 30 ML SUSP *UDC PO PRN (04:45)
[2018-12-23] MEDS: metroNIDAZOLE (FLAGYL) 500 MG TAB PO SCH (05:15)
[2018-12-23] MEDS: HEPARIN SOD (PORCINE) 5000 UNITS/ML VIAL SQ SCH ×3 (05:15→21:06)
[2018-12-23] MEDS: CIPROFLOXACIN 500 MG TAB PO SCH (05:15)
[2018-12-23 06:00] VITALS: BP 131/87
[2018-12-23 06:45] LABS: BASO % 0.4 % (0.0-1.0); EOS # 0.1 10^3/uL (0.0-0.5); EOS % 1.6 % (0.0-3.0); HEMATOCRIT 33.4 % (42.0-52.0); HEMOGLOBIN 10.9 g/dl (13.5-17.5); LYMPH # 1.4 10^3/uL (1.5-5.0); LYMPH % 17.6 % (24.0-44.0); MEAN CORPUSCULAR HEMOGLOBIN 27.3 pg (27.0-33.0); MEAN CORPUSCULAR HGB CONC 32.6 g/dl (32.0-36.5); MEAN CORPUSCULAR VOLUME 83.7 fl (80.0-96.0); MONO # 1.5 10^3/uL (0.0-0.8); MONO % 18.9 % (0.0-5.0); NEUTROPHILS # 4.8 10^3/uL (1.5-8.5); NEUTROPHILS % 61.2 % (36.0-66.0); PLATELET COUNT, AUTOMATED 268 10^3/uL (150-450); RED BLOOD COUNT 3.99 10^6/uL (4.30-6.10); WHITE BLOOD COUNT 7.9 10^3/uL (4.0-10.0)
[2018-12-23 07:12] LABS: ALT/SGPT 141 U/L (12-78); BILIRUBIN,TOTAL 0.9 MG/DL (0.2-1.0); BLOOD UREA NITROGEN 6 MG/DL (7-18); CALCIUM LEVEL 8.3 MG/DL (8.8-10.2); CARBON DIOXIDE LEVEL 40 MEQ/L (21-32); CHLORIDE LEVEL 89 MEQ/L (98-107); CREATININE FOR GFR 0.48 MG/DL (0.70-1.30); GLOMERULAR FILTRATION RATE > 60.0 (>49); GLUCOSE, FASTING 81 MG/DL (70-100); MAGNESIUM LEVEL 1.6 MG/DL (1.8-2.4); POTASSIUM SERUM 3.5 MEQ/L (3.5-5.1); SODIUM LEVEL 133 MEQ/L (136-145); TOTAL PROTEIN 5.8 GM/DL (6.4-8.2)
[2018-12-23] MEDS: SYMBICORT 160/4.5MCG INHALER 6GM INH SCH ×2 (07:35→20:44)
[2018-12-23] MEDS: TIOTROPIUM INHALER/CAPSULE (SPIRIVA) INH SCH (07:35)
[2018-12-23] MEDS: CARVedilol 3.125 MG TAB PO SCH ×2 (08:20→21:05)
[2018-12-23] MEDS: CLOPIDOGREL 75 MG TAB PO SCH (08:20)
[2018-12-23] MEDS: FOLIC ACID 1 MG TAB PO SCH (08:20)
[2018-12-23] MEDS: MULTIVITAMINS/MINERALS THERAP 1 TAB PO SCH (08:20)
[2018-12-23] MEDS: THIAMINE 100 MG TAB PO SCH (08:20)
[2018-12-23] MEDS: PANTOPRAZOLE 40MG TAB (PROTONIX) PO SCH (08:20)
[2018-12-23] MEDS: ASPIRIN 325 MG TAB PO SCH (08:20)
[2018-12-23] MEDS: FUROSEMIDE 20 MG TAB PO SCH (08:20)
[2018-12-23] MEDS: SPIRONOLACTONE 12.5MG PER 1/2 TABLET PO SCH (08:21)
[2018-12-23] MEDS: NEOSPORIN TOP OINT 15GM TOP SCH ×2 (08:21→21:05)
[2018-12-23] MEDS: LISINOPRIL 20 MG TAB PO SCH (08:21)
--- NOTE | 2018-12-23 09:25 | IPNPDOC ---
Date Seen The patient was seen on 12/23/18. Progress Note Subjective: Patient was seen and examined this morning lying comfortably in bed. He still is having a difficult time hearing and can only be communicated with by writing down questions on paper. He states his abdominal pain is much improved today and denies any N/V/D. He denies any chest pain or shortness of breath currently. Objective: PHYSICAL EXAMINATION: VITAL SIGNS: See below. GENERAL: Lying in bed, appears alert, comfortable HEENT: Normocephalic, atraumatic, PERRLA, EOMI, moist mucous membranes CARDIOVASCULAR: Regular rate and rhythm, normal S1 and S2. No murmurs, rubs, or gallops appreciated RESPIRATORY: Diminished breath sounds bilaterally with prolonged expiratory phase. Diffuse expiratory wheezing bilaterally. No rhonchi or rales. ABDOMEN: Mildly tender in the upper abdomen to deep palpation, soft, nondistended, bowel sounds present, no masses or hepatosplenomegaly appreciated EXTREMITIES: No edema, No cyanosis. Pulses 2/4 in bilateral upper and lower extremities NEUROLOGIC: Alert and oriented to person, place, and month/year. Patient follows directions when written on paper but is [place]. Strength intact in bilateral upper and lower extremities. No focal deficits appreciated. PSYCHIATRIC: Mood and affect appropriate Lab results: See below Imaging: CXR 12/17: Small focal zone of atelectasis versus parenchymal scarring adjacent to the cardiac apex CT abdomen/pelvis 12/17: Small bilateral pleural effusions. Small volume of ascites. Mild wall thickening of the descending colon and sigmoid colon, nonspecific, but may represent colitis in the appropriate clinical setting. No bowel distension or obstruction. ECHO: 1. Normal global left ventricular systolic function. There were some features of grade 1 left ventricular diastolic dysfunction manifested by abn ormal relaxation. 2. Aortic valve sclerosis with trace aortic radiation. 3. Mild mitral regurgitation. 4. Moderate tricuspid regurgitation with dilated right atrium and right ventricle, and moderately severe pulmonary hypertension. 5. The inferior vena cava is mildly enlarged, central venous pressure might be elevated. 6. Trace pericardial effusion noted. 7. The most recent echocardiogram in the system was on 11/01/2017 and at that time, LVEF was estimated at 40%. Assessment and plan: Patient is a 63-year-old male with a PMHx of End Stage COPD (on 2L NC), HTN, R Sided Chronic CHF, Hx of TIA, Pulmonary HTN, Hx of Alcohol abuse, Depression and GERD who presented as a transfer from [facility] for hypotension and hypercapnic raspatory failure. Upon arrival, patient was rather be hypotensive and required aggressive IV fluid hydration. Patient was also was on BiPAP support. It was suspected that the patient was having a COPD exacerbation and likely infectious colitis. Problems: Acute hearing loss in left ear - Pt has baseline deafness in the right ear and hearing loss in the left but now cannot hear on the left side much at all. - CT head negative for acute stroke, pt had a negative CT head at [facility] before transfer to our facility - Will reach out to Stu (girlfriend) to understand his base line hearing loss and why he is deaf in the right ear. - Discussed with ENT Dr. Bennett who suggested MRI of IAC's with contrast, start high dose prednisone taper at 60mg, and audiology which can be done inpatient on Tuesday or outpatient if discharged sooner. Hypotension / Shock - possibly 2/2 hypovolemic 2/2 volume loss from diarrhea, less likely septic 2/2 infection, unlikely 2/2 cardiogenic, unlikely 2/2 adrenal insufficiency - Patient has received 2 L of fluid hydration at [facility]; received an additional 3 L bolus upon arrival - Patient's blood pressure initially had responded, however, had required central line placement and pressor support, off pressors since 12/17 - Blood pressure stabalized now and pt has been hypertensive, home HTN medications have been restarted for better control - Cortisol levels high, no evidence of adrenal insufficiency - s/p broad spectrum antibiotics, likely colitis Leukocytosis - likely 2/2 infectious etiology, possibly 2/2 reactive etiology - At [facility], patient had a normal white blood cell count without any fevers noted - Upon arrival at [facility], patient had an elevated WBC count; however again, remained afebrile, Lactic acid has remained normal - Patient did have some complaints of diffuse abdominal pain. However, CT scan was deferred given his hypotension - Clinically patient has not had any further episodes of diarrhea - UA appears possibly infected, Urine cultures negative, blood cultures negative @ 24 hrs, respiratory panel negative - Imaging results as above, chest x-ray did not show any signs of pneumonia, CT abdomen/pelvis did show evidence of colitis. - s/p abx for colitis Cipro/Flagyl Acute on chronic hypercarbic respiratory failure with respiratory acidosis - likely 2/2 compensation for volume/electrolyte loss from diarrhea - Patient's breathing continues to improve, Physical does reveal significant wheezing bilaterally - Patient serial ABGs have shown improvement acidosis and PCO2 retention - CXR without any evidence of pneumonia - s/p Solumedrol loading dose, pt not in acute COPD exacerbation so steroids have been discontinued. - continue inhaled therapy as ordered Diarrhea; 2/2 colitis, less likely 2/2 possible GI bleed - Patient has had an episode of rectal bleeding while in the ICU; small red mucoid rectal output - No further episodes have been noted, H/H has remained stable - CT abd/pelvis showed evidence of colitis - continue Protonix 40 IV BID, s/p abx with Cipro/Flagyl - Continue regular diet as tolerated Acute renal failure - likely 2/2 pre-renal etiology - hypotension and hypovolemia - Patient appears to be at normal renal function last year - Creatinine on arrival was 2.96; has improved s/p IV fluid resuscitation and currently WNL Hyponatremia - likely 2/2 hypotonic hyponatremia - likely 2/2 hypovolemia, possibly 2/2 euvolemic etiologies - Patient's sodium has slowly improved throughout hospitalization, currently re martin WNL - Clinically appears euvolemic, TSH/free T4 WNL Hyperkalemia - improved s/p IV fluid hydration Elevated troponin - likely 2/2 demand ischemia - Currently patient denies any complaint of chest pain - EKG has been compared to prior and does not show any significant change. Does still reveal right bundle-branch block - Troponins trended up to a peak of 4.03, initial trend down and stabilized - Echocardiogram results as above - continue aspirin 325 mg and Plavix 75 mg, JOSE-I, beta fifi; no statin given transaminitis, no anticoagulation given rectal bleed - Cardiology on consultation; appreciate their input Transaminitis - possibly 2/2 hypotension, possibly 2/2 alcoholism, possibly 2/2 infection - trending down, continue to monitor daily - ammonia level normal - hepatitis panel negative HTN - pt presented hypotensive requiring IV fluid resuscitation and pressors. Hypotension has since resolved. Will continue to adjust home medications for adequate control Suspected alcoholism - supplement thiamin, folate, and multivitamin Chronic systolic CHF - ECHO 10/2017: EF 40% - continue home dose of lasix GERD - PPI daily Hard of hearing - Speech therapy to evaluate for communication strategies DVT prophylaxis: continue Heparin SQ Disposition: Med/surg pending continual clinical improvement and PT/OT clearance ATTENDING NOTE I have personally evaluated and examined the patient. Discussed with residents and student regarding plan of care and agree with the above assessment and plan. VS, I&O, 24H, Fishbone Vital Signs/I&O Vital Signs Date Time Temp Pulse Resp B/P (MAP) Pulse Ox O2 Delivery O2 Flow Rate FiO2 12/23/18 08:21 131/81 12/23/18 08:20 65 12/23/18 08:00 1.0 12/23/18 06:00 98.2 18 84 Nasal Cannula 12/19/18 07:21 25 I&O- Last 24 Hours up to 6 AM 12/23/18 06:00 Intake Total 1240 ml Output Total 2750 ml Balance -1510 ml Laboratory Data 24H LABS Laboratory Tests 2 12/23/18 06:25: Immature Granulocyte % (Auto) 0.3, Neutrophils (%) (Auto) 61.2, Lymphocytes (%) (Auto) 17.6L, Monocytes (%) (Auto) 18.9H, Eosinophils (%) (Auto) 1.6, Basophils (%) (Auto) 0.4, Neutrophils # (Auto) 4.8, Lymphocytes # (Auto) 1.4L, Monocytes # (Auto) 1.5H, Eosinophils # (Auto) 0.1, Basophils # (Auto) 0.0, Nucleated Red Blood Cells % (auto) 0.0, Anion Gap 4L, Glomerular Filtration Rate > 60.0, Calcium Level 8.3L, Magnesium Level 1.6L, Total Bilirubin 0.9, Aspartate Amino Transf (AST/SGOT) 24, Alanine Aminotransferase (ALT/SGPT) 141H, Alkaline Phosphatase 78, Total Protein 5.8L, Albumin 3.0L, Albumin/Globulin Ratio 1.07 CBC/BMP Laboratory Tests 12/23/18 06:25 Microbiology Microbiology 12/16/18 Urine Culture - Final, Complete 12/16/18 Blood Culture - Final, Complete NO GROWTH AFTER 5 DAYS 12/16/18 Respiratory Virus Panel (PCR) ([facility]) - Final, Complete 12/16/18 Blood Culture - Final, Complete NO GROWTH AFTER 5 DAYS ANDREW GUY PGY-1 Dec 23, 2018 09:25 AMBER ORTEZ MD Dec 23, 2018 14:27
--- NOTE | 2018-12-23 13:46 | IPN ---
DATE: 12/23/2018 Mr. Spence remains about the same. He feels well and has no specific complaints. Unfortunately, he remains completely deaf. Blood pressure 131/81, heart rate mostly 60s and 70s, saturation is in 90s, principally on 1 liter of oxygen. Fluid balance yesterday again was recorded negative 1200, but weight has not been recorded in several days. He is alert and oriented as far as I can determine. His JVP is not up. Lungs are reasonably clear. I do not appreciate wheezing or crackles today. Heart exam reveals regular rhythm. There is no gallop per se. There is faint murmur over the base. Abdomen: Soft, nontender. Extremities are free of edema. Neurologically intact. LABORATORIES: Hemoglobin 10.9, hematocrit 33, platelet count 268. Basic metabolic panel: Sodium 133, potassium 3.5, BUN 6, creatinine 0.5, and glucose 81 ASSESSMENT/PLAN: Mr. Spence is a 63-year-old man who has longstanding history of smoking and alcoholism. He has known severe COPD with secondary severe pulmonary hypertension. He presented with respiratory failure likely related to several days of nausea, vomiting, and diarrhea with inability to compensate respiratory-delgado. After several days on noninvasive ventilatory support, he has mostly recovered. Cardiology was called because his troponin was elevated, I suspect that type 2 myocardial infarction, most likely related to right ventricle strain. There was never any chest discomfort, and his left ventricular systolic function remains preserved. I would do not plan invasive evaluation. Unfortunately, the patient is poorly compliant. From my perspective, he can be discharged home when felt safe from physical therapy (PT) perspective. I am going to sign off his care. Please contact me back if further assistance is desired.
[2018-12-23] MEDS ORDERED: PROHANCE 279.3MG/ML 15ML VIAL (A9576) As Ordered ONE (14:04)
[2018-12-23 14:30] VITALS: BP 140/90
[2018-12-23] MEDS: predniSONE 20 MG TAB PO SCH (14:48)
[2018-12-23] MEDS: ATORVASTATIN 20 MG TAB PO SCH (21:05)
[2018-12-23 22:00] VITALS: BP 131/74
[2018-12-24] MEDS: HEPARIN SOD (PORCINE) 5000 UNITS/ML VIAL SQ SCH ×3 (05:14→21:26)
[2018-12-24 06:00] VITALS: BP 132/65
[2018-12-24 06:39] LABS: BASO % 0.3 % (0.0-1.0); HEMATOCRIT 34.5 % (42.0-52.0); HEMOGLOBIN 11.2 g/dl (13.5-17.5); LYMPH # 0.9 10^3/uL (1.5-5.0); LYMPH % 22.1 % (24.0-44.0); MEAN CORPUSCULAR HEMOGLOBIN 27.1 pg (27.0-33.0); MEAN CORPUSCULAR HGB CONC 32.5 g/dl (32.0-36.5); MEAN CORPUSCULAR VOLUME 83.5 fl (80.0-96.0); MONO # 0.6 10^3/uL (0.0-0.8); MONO % 15.8 % (0.0-5.0); NEUTROPHILS # 2.4 10^3/uL (1.5-8.5); NEUTROPHILS % 61.3 % (36.0-66.0); PLATELET COUNT, AUTOMATED 298 10^3/uL (150-450); RED BLOOD COUNT 4.13 10^6/uL (4.30-6.10); WHITE BLOOD COUNT 3.9 10^3/uL (4.0-10.0)
--- NOTE | 2018-12-24 07:03 | REP ---
MRI brain and posterior fossa study without and with IV contrast: History: Hearing loss. Technique: Axial and coronal T1 and T2-weighted scans include turbo spin echo, FLAIR, spin echo, 3-D thin slice gradient echo images. Postcontrast images are included. 12 ml of intravenous ProHance is administered. Comparison head CT study December 22, 2018. Findings: There is some motion artifact. No bony calvarial lesion is seen. Craniocervical junction and upper cervical cord are normal in appearance. There are some fluid-filled left mastoid air cells. There is no MR evidence of other significant paranasal sinus disease. No intraorbital abnormality is seen. There is a small old lacunar infarct in the right basal ganglia. Mild small vessel changes are seen in the periventricular white matter. Thin section images through the posterior fossa demonstrate normal internal auditory canals bilaterally. Seventh and eighth nerves are seen and are unremarkable. No CP angle cistern mass is seen. No abnormal vascular structure is appreciated. Postcontrast imaging shows no abnormal intercanalicular or extracanalicular gadolinium enhancement. Enhancement is seen in normal vasculature. No abnormal intracranial contrast enhancement is appreciated. Impression: There are some mucosal changes in the mastoid air cells on the left. An old lacunar infarct is seen in the right basal ganglia. Otherwise negative posterior fossa IAC MRI study. No acute abnormality. Electronically Signed by Aroldo Ureña MD 12/24/2018 08:28 A
[2018-12-24 07:13] LABS: ALT/SGPT 121 U/L (12-78); BILIRUBIN,TOTAL 0.8 MG/DL (0.2-1.0); BLOOD UREA NITROGEN 10 MG/DL (7-18); CALCIUM LEVEL 8.5 MG/DL (8.8-10.2); CARBON DIOXIDE LEVEL 38 MEQ/L (21-32); CHLORIDE LEVEL 92 MEQ/L (98-107); CREATININE FOR GFR 0.52 MG/DL (0.70-1.30); GLOMERULAR FILTRATION RATE > 60.0 (>49); GLUCOSE, FASTING 102 MG/DL (70-100); MAGNESIUM LEVEL 1.5 MG/DL (1.8-2.4); POTASSIUM SERUM 3.7 MEQ/L (3.5-5.1); SODIUM LEVEL 134 MEQ/L (136-145); TOTAL PROTEIN 6.1 GM/DL (6.4-8.2)
[2018-12-24] MEDS: CLOPIDOGREL 75 MG TAB PO SCH (07:35)
[2018-12-24] MEDS: PANTOPRAZOLE 40MG TAB (PROTONIX) PO SCH (07:36)
[2018-12-24] MEDS: MULTIVITAMINS/MINERALS THERAP 1 TAB PO SCH (07:36)
[2018-12-24] MEDS: SPIRONOLACTONE 12.5MG PER 1/2 TABLET PO SCH (07:36)
[2018-12-24] MEDS: LISINOPRIL 20 MG TAB PO SCH (07:36)
[2018-12-24] MEDS: THIAMINE 100 MG TAB PO SCH (07:36)
[2018-12-24] MEDS: CARVedilol 3.125 MG TAB PO SCH ×2 (07:36→21:27)
[2018-12-24] MEDS: FOLIC ACID 1 MG TAB PO SCH (07:36)
[2018-12-24] MEDS: NEOSPORIN TOP OINT 15GM TOP SCH ×2 (07:37→21:27)
[2018-12-24] MEDS: FUROSEMIDE 20 MG TAB PO SCH (07:37)
[2018-12-24] MEDS: predniSONE 20 MG TAB PO SCH (07:37)
[2018-12-24] MEDS: ASPIRIN 325 MG TAB PO SCH (07:39)
[2018-12-24] MEDS: ACETAMINOPHEN TAB 650MG DOSE (2X325MG) PO PRN (07:45)
[2018-12-24] MEDS: SYMBICORT 160/4.5MCG INHALER 6GM INH SCH ×2 (07:58→19:45)
[2018-12-24] MEDS: TIOTROPIUM INHALER/CAPSULE (SPIRIVA) INH SCH (07:58)
[2018-12-24 14:00] VITALS: BP 142/75
--- NOTE | 2018-12-24 16:54 | IPNPDOC ---
Date Seen The patient was seen on 12/24/18. Progress Note SUBJECTIVE: Patient reports feeling well today despite still having notable wheezing and unable to hear. MRI performed yesterday showed no acute changes. Prednisone started yesterday as well. OBJECTIVE PHYSICAL EXAMINATION: VITAL SIGNS: Please see below. General: No acute distress, Alert Eyes: Normal sclera, EOMI, PAL HENT: Atraumatic, neck supple, tympanic membrane intact without any erythema b/l Cardiovascular: Normal rate, normal rhythm. Pulmonary: b/l diffuse wheezing GI: Soft, nontender, nondistended Skin: Warm and dry Neuro: hearing impaired b/l, no other focal deficits. Strengths equal b/l. Psych: oriented x 3 LABORATORY DATA, IMAGING STUDIES, MICROBIOLOGY: Please see below. DVT prophylaxis ordered?: HSQ ASSESSMENT AND PLAN: 1. Worsening of L. ear hearing - Patient reportedly had lost hearing in the R. ear for a long time but still able to hear with the L. ear. - Had impairment and noted to have decrease hearing on the L. as well on presentation but had worse and now cannot hear at all. - CT head showed no acute changes. MRI brain as well as posterior fossa noted no acute change either. - ENT consulted. Prednisone started, for audiology testing tuesday. Please contact [facility] department in AM. - Patient reported that he will have a difficult time returning to [facility] for any testing if he goes home due to financial concerns. 2. hypotension - Resolved. suspected due to hypovolemia. - no evidence of adrenal insufficiency. 3. Acute on chronic respiratory failure - Was seen by pulmonology. Low suspicion for COPD at that time, steroids had been discontinued. - wheezing on exam, prednisone restarted due to hearing impairment, will help as well if there is a COPD component. 4. HTN - resume home med, adjusted due to hypotension on presentation. 5. Chronic HFrEF - c/w home dose lasix DVT ppx: HSQ DISPOSITION: . VS, I&O, 24H, Fishbone Vital Signs/I&O Vital Signs Date Time Temp Pulse Resp B/P (MAP) Pulse Ox O2 Delivery O2 Flow Rate FiO2 12/24/18 14:00 97.5 82 16 142/75 (97) 94 Room Air 12/24/18 08:00 1.0 12/19/18 07:21 25 I&O- Last 24 Hours up to 6 AM 12/24/18 06:00 Intake Total 1680 ml Output Total 1500 ml Balance 180 ml Laboratory Data 24H LABS Laboratory Tests 2 12/24/18 05:30: Immature Granulocyte % (Auto) 0.5, Neutrophils (%) (Auto) 61.3, Lymphocytes (%) (Auto) 22.1L, Monocytes (%) (Auto) 15.8H, Eosinophils (%) (Auto) 0.0, Basophils (%) (Auto) 0.3, Neutrophils # (Auto) 2.4, Lymphocytes # (Auto) 0.9L, Monocytes # (Auto) 0.6, Eosinophils # (Auto) 0.0, Basophils # (Auto) 0.0, Nucleated Red Blood Cells % (auto) 0.0, Anion Gap 4L, Glomerular Filtration Rate > 60.0, Calcium Level 8.5L, Magnesium Level 1.5L, Total Bilirubin 0.8, Aspartate Amino Transf (AST/SGOT) 22, Alanine Aminotransferase (ALT/SGPT) 121H, Alkaline Phosphatase 77, Total Protein 6.1L, Albumin 3.0L, Albumin/Globulin Ratio 0.97L CBC/BMP Laboratory Tests 12/24/18 05:30 Microbiology Microbiology 12/16/18 Urine Culture - Final, Complete 12/16/18 Blood Culture - Final, Complete NO GROWTH AFTER 5 DAYS 12/16/18 Respiratory Virus Panel (PCR) ([facility]) - Final, Complete 12/16/18 Blood Culture - Final, Complete NO GROWTH AFTER 5 DAYS AMBER ORTEZ MD Dec 24, 2018 16:54
[2018-12-24] MEDS: ATORVASTATIN 20 MG TAB PO SCH (21:27)
[2018-12-24 22:00] VITALS: BP 154/78
[2018-12-25] MEDS: ACETAMINOPHEN TAB 650MG DOSE (2X325MG) PO PRN (02:05)
[2018-12-25] MEDS: HEPARIN SOD (PORCINE) 5000 UNITS/ML VIAL SQ SCH (05:49)
[2018-12-25 06:00] VITALS: BP 146/73
[2018-12-25 06:13] LABS: BASO % 0.3 % (0.0-1.0); EOS % 0.2 % (0.0-3.0); HEMATOCRIT 34.9 % (42.0-52.0); HEMOGLOBIN 11.4 g/dl (13.5-17.5); LYMPH # 1.5 10^3/uL (1.5-5.0); LYMPH % 23.8 % (24.0-44.0); MEAN CORPUSCULAR HGB CONC 32.7 g/dl (32.0-36.5); MEAN CORPUSCULAR VOLUME 85.7 fl (80.0-96.0); MONO % 15.1 % (0.0-5.0); NEUTROPHILS # 3.9 10^3/uL (1.5-8.5); NEUTROPHILS % 60.3 % (36.0-66.0); PLATELET COUNT, AUTOMATED 311 10^3/uL (150-450); RED BLOOD COUNT 4.07 10^6/uL (4.30-6.10); WHITE BLOOD COUNT 6.4 10^3/uL (4.0-10.0)
[2018-12-25 06:44] LABS: ALBUMIN 3.1 GM/DL (3.2-5.2); ALT/SGPT 111 U/L (12-78); BILIRUBIN,TOTAL 0.6 MG/DL (0.2-1.0); BLOOD UREA NITROGEN 14 MG/DL (7-18); CALCIUM LEVEL 8.4 MG/DL (8.8-10.2); CARBON DIOXIDE LEVEL 38 MEQ/L (21-32); CHLORIDE LEVEL 92 MEQ/L (98-107); CREATININE FOR GFR 0.68 MG/DL (0.70-1.30); GLOMERULAR FILTRATION RATE > 60.0 (>49); GLUCOSE, FASTING 86 MG/DL (70-100); MAGNESIUM LEVEL 1.5 MG/DL (1.8-2.4); POTASSIUM SERUM 3.9 MEQ/L (3.5-5.1); SODIUM LEVEL 138 MEQ/L (136-145); TOTAL PROTEIN 6.2 GM/DL (6.4-8.2)
[2018-12-25] MEDS: TIOTROPIUM INHALER/CAPSULE (SPIRIVA) INH SCH (08:00)
[2018-12-25] MEDS: SYMBICORT 160/4.5MCG INHALER 6GM INH SCH (08:00)
[2018-12-25] MEDS: ASPIRIN 325 MG TAB PO SCH (10:48)
[2018-12-25] MEDS: predniSONE 20 MG TAB PO SCH (10:48)
[2018-12-25] MEDS: SPIRONOLACTONE 12.5MG PER 1/2 TABLET PO SCH (10:48)
[2018-12-25] MEDS: MULTIVITAMINS/MINERALS THERAP 1 TAB PO SCH (10:49)
[2018-12-25] MEDS: PANTOPRAZOLE 40MG TAB (PROTONIX) PO SCH (10:49)
[2018-12-25] MEDS: THIAMINE 100 MG TAB PO SCH (10:49)
[2018-12-25] MEDS: FOLIC ACID 1 MG TAB PO SCH (10:49)
[2018-12-25] MEDS: CLOPIDOGREL 75 MG TAB PO SCH (10:49)
[2018-12-25] MEDS: FUROSEMIDE 20 MG TAB PO SCH (10:49)
[2018-12-25 10:51] VITALS: BP 139/77
[2018-12-25] MEDS: CARVedilol 3.125 MG TAB PO SCH (10:51)
[2018-12-25] MEDS: LISINOPRIL 20 MG TAB PO SCH (10:51)
[2018-12-25] MEDS ORDERED: ALDA25TA2 PO (13:05)
[2018-12-25] MEDS ORDERED: CLOP75TA2 PO (13:05)
[2018-12-25] MEDS ORDERED: PRED10TA2 PO (13:07)
--- NOTE | 2018-12-25 17:58 | DS.PDOC ---
Discharge Summary General Date of Admission Dec 16, 2018 at 14:58 Date of Discharge 12/25/18 Discharge Summary CHIEF COMPLAINT: Diarrhea, hypotension Final diagnoses Hypotension Left ear hearing loss Acute on chronic hypoxic and hypercapnic respiratory failure HISTORY OF PRESENT ILLNESS: [place] Sp[place] is a 63-year-old male who was admitted to [facility] as a direct admit transfer from [facility]. He initially presented to [facility] with a one-week history of diarrhea and reported altered mental status by his girlfriend. He was found by the hospitalist to be hypotensive and started on fluids for a total of 2 L. He is lab work was significant for elevated potassium, BUN, creatinine, and transaminases, with a low sodium and chloride level. His lab work also showed a normal lactic acid level at 0.5. Lipase level was reported at 86. His blood pressure remained low and he was started on lev othyroid at 8 mcg/ml on a peripheral line. Due to altered mental status, head CT was performed and is reported as negative. ABG was also performed and is reported at pH 7.2, PCO2 85, and PO2 81 while on 3 L of oxygen. The patient was then transferred to our hospital. Admission to our hospital, the patient is not completely oriented and answering questions in short questions. He states he feels "lousy". He reports he's been having 4-5 days of diarrhea with watery stools, but denies any blood in his stool. He states he does have some generalized abdominal pain but cannot specify a particular area on his abdomen. He denies any current shortness of breath, chest pain, palpitations. Initially he was hypotension. She'll which has resolved. Adrenal insufficiency was one of the causes, which were evaluated which was also found out to be negative. The patient was found to be in acute on chronic respiratory failure. Was seen by pulmonology. They were having low suspicion for COPD at that time. The patient was started on steroids which were tapered down. The patient has a baseline COPD and currently is at this time. The patient on the course in the hospital, started complaining of worsening of left ear hearing. CT head showed no acute changes. MRI of the brain was done also which showed no acute changes. ENT was consulted and they wanted to see the patient as an outpatient and he will go and follow with Dr. Burleson audiology Department. For his blood pressure, hypertension. Medications have been continued. He has a history of heart failure with reduced ejection fraction and for that reason, he is optimized on medication and is been sent on home Lasix. Counseled regarding salt restrictions, medication compliance and fluid restrictions. He is medically stable for discharge and will be d ischarged home. OBJECTIVE PHYSICAL EXAMINATION: VITAL SIGNS: Please see below. General: No acute distress, Alert Eyes: Normal sclera, EOMI, APL HENT: Atraumatic, neck supple, tympanic membrane intact without any erythema b/l Cardiovascular: Normal rate, normal rhythm. Pulmonary: b/l diffuse wheezing GI: Soft, nontender, nondistended Skin: Warm and dry Neuro: hearing impaired b/l, no other focal deficits. Strengths equal b/l. Psych: oriented x 3 Medications. As per discharge reconciliation medication list Activity as tolerated Diet. 2 g sodium diet Follow-up appointments. PCP in 1 week, ENT in one week and pulmonology in 1 week Condition on discharge. Patient is medically optimized for discharge Discharge disposition: Home Total time spent on this discharge including coordination of care, review of chart documentation and extubation contact is around 35 minutes Vital Signs/I&Os Vital Signs Date Time Temp Pulse Resp B/P (MAP) Pulse Ox O2 Delivery O2 Flow Rate FiO2 12/25/18 10:51 89 139/77 12/25/18 08:30 1.0 12/25/18 06:00 97.0 18 94 Nasal Cannula 12/19/18 07:21 25 I&O- Last 24 Hours up to 6 AM 12/25/18 06:00 Intake Total 1770 ml Output Total 1400 ml Balance 370 ml Laboratory Data Labs 24H Laboratory Tests 2 12/25/18 05:34: Immature Granulocyte % (Auto) 0.3, Neutrophils (%) (Auto) 60.3, Lymphocytes (%) (Auto) 23.8L, Monocytes (%) (Auto) 15.1H, Eosinophils (%) (Auto) 0.2, Basophils (%) (Auto) 0.3, Neutrophils # (Auto) 3.9, Lymphocytes # (Auto) 1.5, Monocytes # (Auto) 1.0H, Eosinophils # (Auto) 0.0, Basophils # (Auto) 0.0, Nucleated Red Blood Cells % (auto) 0.0, Anion Gap 8, Glomerular Filtration Rate > 60.0, Calcium Level 8.4L, Magnesium Level 1.5L, Total Bilirubin 0.6, Aspartate Amino Transf (AST/SGOT) 43H, Alanine Aminotransferase (ALT/SGPT) 111H, Alkaline Phosphatase 79, Total Protein 6.2L, Albumin 3.1L, Albumin/Globulin Ratio 1.00 CBC/BMP Laboratory Tests 12/25/18 05:34 Microbiology Microbiology 12/16/18 Urine Culture - Final, Complete 12/16/18 Blood Culture - Final, Complete NO GROWTH AFTER 5 DAYS 12/16/18 Respiratory Virus Panel (PCR) ([facility]) - Final, Complete 12/16/18 Blood Culture - Final, Complete NO GROWTH AFTER 5 DAYS Discharge Medications Scheduled Aspirin (Aspirin EC) 81 Mg Tablet.dr, 81 MG PO DAILY, (Reported) Atorvastatin Calcium (Atorvastatin Calcium) 40 Mg Tablet, 40 MG PO QHS, (Reported) Budesonide/Formoterol (Symbicort 160-4.5 Mcg Inhaler) 6 Gm Hfa.aer.ad, 2 PUFF INH BID, (Reported) Carvedilol (Carvedilol) 3.125 Mg Tablet, 3.125 MG PO BID, (Reported) Ergocalciferol (Vitamin D2) (Vitamin D2) 50,000 Unit Capsule, 50,000 UNIT PO QWEEK, (Reported) MONDAYS Folic Acid (Folic Acid) 1 Mg Tablet, 1 MG PO DAILY, (Reported) Furosemide (Furosemide) 40 Mg Tablet, 40 MG PO DAILY, (Reported) Gabapentin (Gabapentin) 100 Mg Capsule, 100 MG PO QHS, (Reported) Lisinopril (Lisinopril) 2.5 Mg Tablet, 2.5 MG PO DAILY, (Reported) Magnesium Oxide (Magnesium) 500 Mg Capsule, 500 MG PO DAILY, (Reported) Multivitamin (Multivitamins) 1 Each Tablet, 1 TAB PO DAILY, (Reported) Omeprazole (Omeprazole) 40 Mg Capsule.dr, 40 MG PO DAILY, (Reported) PARoxetine HCl (Paroxetine Cr) 25 Mg Tab.er.24h, 25 MG PO DAILY, (Reported) Prednisone (Prednisone) 10 Mg Tablet, 10 MG PO TAPER Take 4 tabs daily x 3 days, then 3 tabs daily x 3 days, then 2 tabs daily x 3 days, then 1 tab daily x 3 days and stop Spironolactone (Aldactone) 25 Mg Tablet, 12.5 MG PO DAILY Theophylline Anhydrous (Theophylline) 400 Mg Tab.er.24h, 200 MG PO BID, (Reported) Thiamine HCl (Thiamine HCl) 100 Mg/1 Ml Vial, 100 MG IM ASDIRECTED, (Reported) RECEIVED AT [facility] Umeclidinium Garita (Incruse Ellipta) 62.5 Mcg Blst.w.dev, 62.5 MCG INH DAILY, (Reported) Scheduled PRN Albuterol Sulfate (Albuterol Sulfate Hfa) 8.5 Gm Hfa.aer.ad, 2 PUFF INH Q6H PRN for SHORTNESS OF BREATH, (Reported) Lorazepam (Lorazepam) 1 Mg Tablet, 1 MG PO Q8H PRN for ANXIETY, (Reported) Tramadol HCl (Tramadol HCl) 50 Mg Tablet, 50 MG PO BID PRN for PAIN, (Reported) Allergies Coded Allergies: No Known Allergies (Unverified , 11/01/17) HITESH CONRAD MD Dec 25, 2018 17:54
== END 2018-12-25 14:45 | disposition home or self-care (01) | DRG 181 ==
LOC: M ICU 14:58 → M MSPAV 12-21 12:03
PROVIDERS: ADMIT Internal Medicine; ATTEND Internal Medicine
PROC: 06HM33Z Insertion of Infusion Device into Right Femoral Vein, Percutaneous Approach (ICD-10-PCS; principal; 2018-12-16)
PROC: 04HY32Z Insertion of Monitoring Device into Lower Artery, Percutaneous Approach (ICD-10-PCS; 2018-12-16)
DX: R57.1 Hypovolemic shock (principal); J96.22 Acute and chronic respiratory failure with hypercapnia; I21.A1 Myocardial infarction type 2; N17.0 Acute kidney failure with tubular necrosis; I47.2 Ventricular tachycardia; I11.0 Hypertensive heart disease with heart failure; E87.1 Hypo-osmolality and hyponatremia; K92.2 Gastrointestinal hemorrhage, unspecified; I50.812 Chronic right heart failure; I27.20 Pulmonary hypertension, unspecified; I50.22 Chronic systolic (congestive) heart failure; Z99.81 Dependence on supplemental oxygen; E83.42 Hypomagnesemia; J44.9 Chronic obstructive pulmonary disease, unspecified; A09 Infectious gastroenteritis and colitis, unspecified; F41.9 Anxiety disorder, unspecified; K21.9 Gastro-esophageal reflux disease without esophagitis; D72.829 Elevated white blood cell count, unspecified; F32.9 Major depressive disorder, single episode, unspecified; F10.20 Alcohol dependence, uncomplicated; F17.200 Nicotine dependence, unspecified, uncomplicated; Z86.73 Personal history of transient ischemic attack (TIA), and cerebral infarction without residual deficits; Z79.82 Long term (current) use of aspirin; Z79.4 Long term (current) use of insulin; Z79.899 Other long term (current) drug therapy; H91.93 Unspecified hearing loss, bilateral

== ENCOUNTER 2019-03-20 21:29 | Inpatient (IN) | payer OTHER ==
[~2019-03-20] VITALS: Ht 175.3 cm; Wt 53.0 kg
[~2019-03-20 21:29] MED LIST changes: +ALBU8.5H INH; +ASPI-226 PO; +ATOR40TA75 PO; +CLOP75TA2 PO; +GABA-1171 PO; +INSUR SC; +LEVO1INJ3 IV; +LISI-1046 PO; -LORA1TAB12 PO; +LORA1TAB4 PO; +MAGN1CAP PO; +MULTTAB4 PO; +OMEP-221 PO; -PARO25TA PO; +PARO25TA4 PO; +PARO25TA8 PO; +THEO400T4 PO; +TRAM50TA2 PO; +VITA500045 PO; +[UNRECOGNIZED DRUG - CODE] IM
[2019-03-20 23:14] LABS: ABG BASE EXCESS 27.6 (-2.0-2.0); ABG HCO3 60.2 MEQ/L (22.0-26.0); ABG O2 SATURATION 97.9 % (95.0-99.0); ABG PARTIAL PRESSURE O2 112.7 mmHg (75.0-100.0); ABG STANDARD HCO3 53.3 MEQ/L (22.0-26.0); ABG TOTAL CO2 63.8 MEQ/L (23.0-31.0); ABG pH (ARTERIAL) 7.327 UNITS (7.350-7.450)
[2019-03-20 23:15] LABS: ABG PARTIAL PRESSURE CO2 117.6 mmHg (35.0-45.0)
[2019-03-20 23:17] LABS: BASO % 0.7 % (0.0-1.0); EOS # 0.2 10^3/uL (0.0-0.5); HEMATOCRIT 39.7 % (42.0-52.0); HEMOGLOBIN 12.1 g/dl (13.5-17.5); LYMPH % 19.2 % (24.0-44.0); MEAN CORPUSCULAR HGB CONC 30.5 g/dl (32.0-36.5); MEAN CORPUSCULAR VOLUME 85.2 fl (80.0-96.0); MONO # 1.1 10^3/uL (0.0-0.8); NEUTROPHILS # 3.1 10^3/uL (1.5-8.5); NEUTROPHILS % 56.9 % (36.0-66.0); PLATELET COUNT, AUTOMATED 200 10^3/uL (150-450); RED BLOOD COUNT 4.66 10^6/uL (4.30-6.10); WHITE BLOOD COUNT 5.4 10^3/uL (4.0-10.0)
[2019-03-20] MEDS ORDERED: methylPREDNISolone INJ 125 MG/2 ML VIAL (J2930) IV ONE (23:30)
[2019-03-20] MEDS ORDERED: IPRATROPIUM 0.5MG/ALBUTEROL 2.5MG INH SOL UD 3ML (DUONEB)(J7620) NEB ONE (23:30)
[2019-03-21] VITALS (16 sets, daily range): BP systolic 100–148; BP diastolic 59–108; O2SAT 99
[2019-03-21 00:19] LABS: ALT/SGPT 20 U/L (12-78); BILIRUBIN,DIRECT 0.1 MG/DL (0.0-0.2); BILIRUBIN,TOTAL 0.4 MG/DL (0.2-1.0); BLOOD UREA NITROGEN 9 MG/DL (7-18); CALCIUM LEVEL 8.6 MG/DL (8.8-10.2); CARBON DIOXIDE LEVEL 50 MEQ/L (21-32); CHLORIDE LEVEL 79 MEQ/L (98-107); CK-MB VALUE MASS 2.7 NG/ML (<3.6); CPK CREATINE PHOSPHOKINASE 46 U/L (39-308); CREATININE FOR GFR 0.43 MG/DL (0.70-1.30); FREE T4 1.03 NG/DL (0.76-1.46); GLOMERULAR FILTRATION RATE > 60.0 (>49); GLUCOSE, FASTING 165 MG/DL (70-100); MB/CK RELATIVE INDEX 5.87 (< OR =4); NT-PRO BNP 284 PG/ML (<125); POTASSIUM SERUM 4.1 MEQ/L (3.5-5.1); SODIUM LEVEL 130 MEQ/L (136-145); TOTAL PROTEIN 7.1 GM/DL (6.4-8.2); TROPONIN I 0.13 NG/ML (< 0.10)
--- NOTE | 2019-03-21 00:22 | REPVR ---
PROCEDURE INFORMATION: Exam: CT Head Without Contrast Exam date and time: 03/20/2019 11:31 PM Age: 63 years old Clinical indication: Pain; Headache not specified; Additional info: Trauma TECHNIQUE: Imaging protocol: Computed tomography of the head without contrast. Radiation optimization: All CT scans at this facility use at least one of these dose optimization techniques: automated exposure control; mA and/or kV adjustment per patient size (includes targeted exams where dose is matched to clinical indication); or iterative reconstruction. COMPARISON: CT HEAD W/O CONTRAST - OUTSIDE PRIOR 12/16/2018 10:12 AM FINDINGS: Brain: Normal. No hemorrhage. Unremarkable white matter. No mass effect. Ventricles: Normal. No ventriculomegaly. Bones/joints: Unremarkable. No acute fracture. Sinuses: Visualized sinuses are unremarkable. No fluid levels. Mastoid air cells: Visualized mastoid air cells are well aerated. Soft tissues: Unremarkable. IMPRESSION: No acute intracranial abnormality. Electronically signed by: Henrry Freed On 03/21/2019 00:21:35 AM
--- NOTE | 2019-03-21 00:26 | REPVR ---
PROCEDURE INFORMATION: Exam: CT Cervical Spine Without Contrast Exam date and time: 03/20/2019 11:31 PM Age: 63 years old Clinical indication: Injury or trauma; Fall; Initial encounter; Concussion /head injury TECHNIQUE: Imaging protocol: Computed tomography images of the cervical spine without contrast. Radiation optimization: All CT scans at this facility use at least one of these dose optimization techniques: automated exposure control; mA and/or kV adjustment per patient size (includes targeted exams where dose is matched to clinical indication); or iterative reconstruction. COMPARISON: No relevant prior studies available. FINDINGS: Vertebrae: Normal alignment. No compression fractures or bone lesions. Discs/Spinal canal/Neural foramina: Advanced multilevel discogenic degenerative changes. Advanced multilevel facet DJD with neural foraminal stenoses. Soft tissues: Unremarkable. Lungs: Changes of emphysema in the lung apices. IMPRESSION: 1. Advanced degenerative spondylosis. 2. No fracture or malalignment. Electronically signed by: Henrry Freed On 03/21/2019 00:26:34 AM
[2019-03-21] MEDS ORDERED: ONDA4TAB6 PO (01:09)
[2019-03-21] MEDS ORDERED: MAGN500T6 PO (01:09)
[2019-03-21] MEDS ORDERED: IPRA0.00 INH (01:09)
[2019-03-21] MEDS ORDERED: CLOP75TA2 PO (01:09)
[2019-03-21] MEDS ORDERED: VITMTA PO (01:09)
[2019-03-21] MEDS ORDERED: ROPI0.253 PO (01:09)
[2019-03-21] MEDS ORDERED: AIRD1INH3 INH (01:09)
[2019-03-21] MEDS ORDERED: EXCETAB33 PO (01:09)
[2019-03-21] MEDS ORDERED: IPRATROPIUM 0.5MG/ALBUTEROL 2.5MG INH SOL UD 3ML (DUONEB)(J7620) INH PRN (03:15)
[2019-03-21] MEDS ORDERED: OMEPRAZOLE 20 MG CAP PO ONE (03:15)
[2019-03-21] MEDS ORDERED: ONDANSETRON 4 MG ORAL DISINTEGRATING TAB (Q0162 PER 1MG) PO PRN (03:15)
[2019-03-21] MEDS ORDERED: ALBUTEROL 90 MCG/ACT 8GM HFA INHALER INH PRN ×2 (03:15)
--- NOTE | 2019-03-21 03:34 | HPEPDOC ---
General Date of Admission Mar 21, 2019 at 03:06 Date of Service: Mar 21, 2019 Chief Complaint The patient is a 63-year-old male admitted with a reason for visit of Altered Mental Status, Copd With Acute Excerbation. Source: Patient Exam Limitations: Clinical conditions Timing/Duration: 24 hours Severity: Moderate Associated Symptoms: Shortness of breath History of Present Illness Patient is 63 years old male with past medical history of alcoholism, advanced COPD on 2 L at home, CHF, TIA presented hospital with altered mental status after history of mechanical fall. Patient's girlfriend stated that his mental status was altered since morning, he developed mechanical fall and hit his left knee. Also he's been having increased shortness of breath. In emergency room patient was found to have acute on chronic hypercarbic respiratory failure requiring BiPAP. Chest x-ray was done and showed no any acute pulmonary infiltrate, emphysematous changes. Left Knee x-ray was negative for fracture. Also patient was found to have elevated troponin level 0.13. Patient denied any chest pain or palpitations. EKG was negative for acute ischemic changes. Home Medications Scheduled Aspirin (Aspirin EC) 81 Mg Tablet.dr, 81 MG PO DAILY, (Reported) Atorvastatin Calcium (Atorvastatin Calcium) 40 Mg Tablet, 40 MG PO DAILY, (Reported) Carvedilol (Carvedilol) 3.125 Mg Tablet, 3.125 MG PO BID, (Reported) Clopidogrel Bisulfate (Clopidogrel) 75 Mg Tablet, 75 MG PO DAILY, (Reported) Fluticasone Propion/Salmeterol (Airduo Respiclick 232-14 Mcg) 1 Each Aer.pow.ba, 1 PUFF INH BID, (Reported) Folic Acid (Folic Acid) 1 Mg Tablet, 1 MG PO DAILY, (Reported) Lisinopril (Lisinopril) 2.5 Mg Tablet, 2.5 MG PO DAILY, (Reported) Magnesium Gluconate (Magnesium Gluconate) 27 Mg Tablet, 1 TAB PO DAILY, (Reported) Multivitamins (Thera M Plus Tablet) 1 Each Tablet, 1 TAB PO DAILY, (Reported) Omeprazole (Omeprazole) 40 Mg Capsule.dr, 40 MG PO DAILY, (Reported) PARoxetine HCl (Paroxetine Cr) 25 Mg Tab.er.24h, 25 MG PO DAILY, (Reported) Ropinirole HCl (Ropinirole HCl) 0.25 Mg Tablet, 0.25 MG PO QHS, (Reported) Theophylline Anhydrous (Theophylline) 400 Mg Tab.er.24h, 200 MG PO BID, (Reported) Umeclidinium [place] (Incruse Ellipta) 62.5 Mcg Blst.w.dev, 62.5 MCG INH DAILY, (Reported) Scheduled PRN Albuterol Sulfate (Albuterol Sulfate Hfa) 8.5 Gm Hfa.aer.ad, 2 PUFF INH Q6H PRN for SHORTNESS OF BREATH, (Reported) Aspirin/Acetaminophen/Caffeine (Excedrin Migraine Caplet) 1 Each Tablet, 1 TAB PO BID PRN for HEADACHE, (Reported) Ipratropium/Albuterol Sulfate (Iprat-Albut 0.5-3(2.5) mg/3 ml) 3 Ml Ampul.neb, 3 ML INH QID PRN for WHEEZING, (Reported) Ondansetron (Ondansetron Odt) 4 Mg Tab.rapdis, 4 MG PO Q4H PRN for NAUSEA, (Reported) Allergies Coded Allergies: No Known Allergies (Unverified , 11/01/17) Past Medical History Medical History Positive for adverse COPD for which he has been on continuous nasal cannula at 2 liters a minute, hypertension, cannula at 2 liters on the, hypertension, cardiomegaly with a mildly to moderately depressed global left ventricular systolic function according to echocardiogram done in the fall of 2017, pulmonary hypertension that was reported moderately severe with right-sided failure, TIA, anxiety/depression, GERD, hyperlipidemia and history of EtOH abuse. Surgical History Positive for hernia repair times two. Family History General history of DM, CAD, COPD, alcoholism Social History * Smoker: current smoker, greater than 1 pack/day Alcohol: heavy Drugs: denies A-FIB/CHADSVASC A-FIB History Current/History of A-Fib/PAF?: No Current PO Anticoag Therapy: No Review of Systems Constitutional: Denies: Chills, Fever Eyes: Denies: Pain ENT: Denies: Head Aches Skin: Denies: Rash Pulmonary: Reports: Dyspnea, Cough Cardiovascular: Denies: Chest Pain, Palpitations Gastrointestinal: Denies: Nausea, Vomiting Genitourinary: Denies: Dysuria Hematologic: Denies: Bruising, Bleeding Excessively Endocrine: Denies: Polydipsia Musculoskeletal: Denies: Neck Pain, Back Pain Neurological: Denies: Weakness Psych: Reports: Mood Normal Physical Examination General Exam: Positive: Cooperative, Other (mildly confused); Negative: Alert Eye Exam: Positive: PERRLA ENT Exam: Positive: Atraumatic Neck Exam: Positive: Supple; Negative: JVD Chest Exam: Positive: Diminished; Negative: Clear to auscultation Heart Exam: Positive: Rate Normal Telemetry: Positive: No significant arrhythmia Abdomen Exam: Positive: Normal bowel sounds Extremity Exam: Positive: Clubbing; Negative: Cyanosis Skin Exam: Positive: Nl turgor and temperature Neuro Exam: Positive: Cranial Nerves 3-12 NL Psych Exam: Positive: Mood NL, Other (not oriented in time and place) Vital Signs Vital Signs Date Time Temp Pulse Resp B/P (MAP) Pulse Ox O2 Delivery O2 Flow Rate FiO2 03/21/19 02:30 97 20 117/67 (84) 92 Nasal Cannula 2.0 03/21/19 01:30 98.2 03/21/19 00:46 28 Laboratory Data Labs 24H Laboratory Tests 2 03/20/19 22:56: Immature Granulocyte % (Auto) 0.2, Neutrophils (%) (Auto) 56.9, Lymphocytes (%) (Auto) 19.2L, Monocytes (%) (Auto) 20.0H, Eosinophils (%) (Auto) 3.0, Basophils (%) (Auto) 0.7, Neutrophils # (Auto) 3.1, Lymphocytes # (Auto) 1.0L, Monocytes # (Auto) 1.1H, Eosinophils # (Auto) 0.2, Basophils # (Auto) 0.0, Nucleated Red Blood Cells % (auto) 0.0, Anion Gap 1L, Glomerular Filtration Rate > 60.0, Calcium Level 8.6L, Total Bilirubin 0.4, Direct Bilirubin 0.1, Aspartate Amino Transf (AST/SGOT) 15, Alanine Aminotransferase (ALT/SGPT) 20, Alkaline Phosphatase 85, Total Creatine Kinase 46, Creatine Kinase MB 2.7, Creatine Kinase MB Relative Index 5.87H, Troponin I 0.13H, EN-Xcw-X-Type Natriuretic Peptide 284H, Total Protein 7.1, Albumin 4.0, Albumin/Globulin Ratio 1.29, Thyroid Stimulating Hormone (TSH) 1.080, Free Thyroxine 1.03 03/20/19 23:05: Blood Gas Bicarbonate Standard 53.3H, Arterial Blood pH 7.327L, Arterial Blood Partial Pressure CO2 117.6*H, Arterial Blood Partial Pressure O2 112.7H, Arterial Blood Total CO2 63.8H, Arterial Blood HCO3 60.2H, Arterial Blood Base Excess 27.6H, Arterial Blood Oxygen Saturation 97.9 CBC/BMP Laboratory Tests 03/20/19 22:56 Assessment/Plan Patient is 63 years old male with past medical history of alcoholism, advanced COPD on 2 L at home, CHF, TIA presented hospital with altered mental status after history of mechanical fall. Patient's girlfriend stated that his mental status was altered since morning, he developed mechanical fall and hit his left knee. Also he's been having increased shortness of breath. In emergency room patient was found to have acute on chronic hypercarbic respiratory failure requiring BiPAP. Chest x-ray was done and showed no any acute pulmonary infiltrate, emphysematous changes. Problems (1) Acute hypercapnic respiratory failure Status: Acute Problem Text: Secondary to COPD exacerbation Will check respiratory panel Continue BiPAP IV steroids, inhalers Incentive spirometry Will check d-dimer to rule out PE (2) COPD with acute exacerbation Status: Acute Problem Text: See above (3) Elevated troponin Status: Acute Problem Text: Most likely demand ischemia secondary to respiratory distress Continue to monitor troponin EKG did not show acute ischemic changes, RBBB persists Patient denied any chest pain (4) History of alcohol abuse Status: Chronic Problem Text: [facility] Urine toxic screen Plan / VTE VTE Prophylaxis Ordered?: Yes MIKEY ANDERSON DO Mar 21, 2019 03:34
[2019-03-21] MEDS ORDERED: LORazepam 2 MG TAB PO PRN (03:45)
[2019-03-21] MEDS: IPRATROPIUM 0.5MG/ALBUTEROL 2.5MG INH SOL UD 3ML (DUONEB)(J7620) INH SCH ×6 (04:00→23:34)
[2019-03-21] MEDS: rOPINIRole 0.25 MG TAB(REQUIP) PO SCH ×2 (05:00→20:42)
[2019-03-21] MEDS: THIAMINE 100 MG TAB PO SCH ×2 (05:13→20:42)
[2019-03-21 05:20] LABS: ABG BASE EXCESS 18.8 (-2.0-2.0); ABG O2 SATURATION 92.3 % (95.0-99.0); ABG PARTIAL PRESSURE CO2 88.5 mmHg (35.0-45.0); ABG PARTIAL PRESSURE O2 64.4 mmHg (75.0-100.0); ABG STANDARD HCO3 42.9 MEQ/L (22.0-26.0); ABG TOTAL CO2 51.7 MEQ/L (23.0-31.0); ABG pH (ARTERIAL) 7.361 UNITS (7.350-7.450)
[2019-03-21] MEDS: LevoFLOXacin 750 MG TABLET PO SCH (05:42)
[2019-03-21 06:31] LABS: CK-MB VALUE MASS 2.5 NG/ML (<3.6); MB/CK RELATIVE INDEX 5.43 (< OR =4); TROPONIN I 0.13 NG/ML (< 0.10)
[2019-03-21] MEDS: SYMBICORT 160/4.5MCG INHALER 6GM INH SCH ×2 (07:48→21:08)
--- NOTE | 2019-03-21 08:01 | REP ---
Clinical: Acute chest pain . Comparison: 12/17/2018 . Technique: PA and lateral. Findings: The mediastinum and cardiac silhouette are normal. The lung puentes suggest chronic interstitial changes without acute consolidation, effusion, or pneumothorax. The skeletal structures are intact and normal. Impression: 1. No acute cardiopulmonary process. Electronically Signed by Nathan Trujillo MD 03/21/2019 07:53 A
--- NOTE | 2019-03-21 08:11 | REP ---
Clinical: Trauma. Technique: AP, lateral, bilateral oblique and sunrise views left knee . Findings: Swelling and suprapatellar effusion noted. No obvious acute fracture or dislocation identified. Underlying age-related osteopenia and generalized degenerative changes noted. Impression: Swelling and effusion suggest underlying occult injury. No obvious acute fracture or dislocation. Electronically Signed by Nathan Trujillo MD 03/21/2019 08:02 A
[2019-03-21] MEDS: FOLIC ACID 1 MG TAB PO SCH (08:30)
[2019-03-21] MEDS: CLOPIDOGREL 75 MG TAB PO SCH (08:31)
[2019-03-21] MEDS: LISINOPRIL *2.5 MG* TAB PO SCH (08:31)
[2019-03-21] MEDS: ATORVASTATIN 20 MG TAB PO SCH (08:31)
[2019-03-21] MEDS: CARVedilol 3.125 MG TAB PO SCH ×2 (08:32→20:43)
[2019-03-21] MEDS: MULTIVITAMINS/MINERALS THERAP 1 TAB PO SCH (08:32)
[2019-03-21] MEDS: MAGNESIUM GLUCONATE 500 MG TAB PO SCH (08:32)
[2019-03-21] MEDS: ASPIRIN 81 MG ENTERIC TAB PO SCH (08:32)
[2019-03-21] MEDS: HEPARIN SOD (PORCINE) 5000 UNITS/ML VIAL (J1644 PER 1000UNITS) SC SCH ×2 (08:33→20:42)
[2019-03-21] MEDS ORDERED: FOLIC ACID 1 MG TAB PO SCH (09:00)
[2019-03-21] MEDS: methylPREDNISolone INJ 125 MG/2 ML VIAL (J2930) IV SCH ×2 (12:14→23:46)
[2019-03-21] MEDS: PARoxetine 25 MG CR TAB (PAXIL CR) PO SCH (12:14)
--- NOTE | 2019-03-21 18:59 | IPNPDOC ---
Text Note Date of Service The patient was seen on 03/21/19. NOTE Patient seen this am during rounds. Admitted after midnight. 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 Repeat ABG showing improved respiratory chemistry. Patient hard of hearing, but alert and 100% on home 2LPM nc. Discontinue bipap, transfer to PCU status. Continue abx + steroids + nebs. VS,Fishbone, I+O VS, Fishbone, I+O Laboratory Tests 03/20/19 22:56 Vital Signs Date Time Temp Pulse Resp B/P (MAP) Pulse Ox O2 Delivery O2 Flow Rate FiO2 03/21/19 18:00 106 20 131/73 (92) Nasal Cannula 3.0 03/21/19 12:00 99.1 92 03/21/19 08:00 30 I&O- Last 24 Hours up to 6 AM 03/21/19 06:00 Intake Total 60 ml Output Total 0 ml Balance 60 ml ESTELA HUTTON MD Mar 21, 2019 18:59
--- NOTE | 2019-03-21 20:06 | ECGEPIP ---
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
[2019-03-22] VITALS (24 sets, daily range): BP systolic 128–168; BP diastolic 72–96; O2SAT 91–100
[2019-03-22] MEDS ORDERED: IPRATROPIUM 0.5MG/ALBUTEROL 2.5MG INH SOL UD 3ML (DUONEB)(J7620) NEB PRN ×2 (00:45→15:00)
[2019-03-22] MEDS: IPRATROPIUM 0.5MG/ALBUTEROL 2.5MG INH SOL UD 3ML (DUONEB)(J7620) INH SCH ×5 (03:08→20:00)
[2019-03-22 04:23] LABS: ABG BASE EXCESS 17.1 (-2.0-2.0); ABG HCO3 44.3 MEQ/L (22.0-26.0); ABG O2 SATURATION 96.8 % (95.0-99.0); ABG PARTIAL PRESSURE O2 89.5 mmHg (75.0-100.0); ABG TOTAL CO2 46.4 MEQ/L (23.0-31.0); ABG pH (ARTERIAL) 7.433 UNITS (7.350-7.450)
[2019-03-22 04:25] LABS: ABG PARTIAL PRESSURE CO2 67.8 mmHg (35.0-45.0)
[2019-03-22 05:33] LABS: HEMOGLOBIN 10.7 g/dl (13.5-17.5); MEAN CORPUSCULAR HEMOGLOBIN 26.2 pg (27.0-33.0); MEAN CORPUSCULAR HGB CONC 32.4 g/dl (32.0-36.5); MEAN CORPUSCULAR VOLUME 80.9 fl (80.0-96.0); PLATELET COUNT, AUTOMATED 232 10^3/uL (150-450); RED BLOOD COUNT 4.08 10^6/uL (4.30-6.10); WHITE BLOOD COUNT 4.5 10^3/uL (4.0-10.0)
[2019-03-22] MEDS: LevoFLOXacin 750 MG TABLET PO SCH (05:36)
[2019-03-22 06:23] LABS: BLOOD UREA NITROGEN 10 MG/DL (7-18); CALCIUM LEVEL 9.2 MG/DL (8.8-10.2); CARBON DIOXIDE LEVEL 48 MEQ/L (21-32); CHLORIDE LEVEL 76 MEQ/L (98-107); CREATININE FOR GFR 0.46 MG/DL (0.70-1.30); GLOMERULAR FILTRATION RATE > 60.0 (>49); GLUCOSE, FASTING 139 MG/DL (70-100); MAGNESIUM LEVEL 1.4 MG/DL (1.8-2.4); POTASSIUM SERUM 3.3 MEQ/L (3.5-5.1); SODIUM LEVEL 123 MEQ/L (136-145)
[2019-03-22] MEDS: SYMBICORT 160/4.5MCG INHALER 6GM INH SCH ×2 (07:35→20:00)
[2019-03-22] MEDS ORDERED: POTASSIUM CHLORIDE 10 MEQ SR TABLET PO ONE (07:45)
[2019-03-22] MEDS: MAG SULF 1GM/100ML (MAG RUN) 1 GM in IV 1 EA IV SCH ×2 (07:46→08:56)
[2019-03-22] MEDS: MULTIVITAMINS/MINERALS THERAP 1 TAB PO SCH (07:47)
[2019-03-22] MEDS: ATORVASTATIN 20 MG TAB PO SCH (07:47)
[2019-03-22] MEDS: ASPIRIN 81 MG ENTERIC TAB PO SCH (07:48)
[2019-03-22] MEDS: THIAMINE 100 MG TAB PO SCH ×2 (07:48→21:00)
[2019-03-22] MEDS: CLOPIDOGREL 75 MG TAB PO SCH (07:48)
[2019-03-22] MEDS: PARoxetine 25 MG CR TAB (PAXIL CR) PO SCH (07:48)
[2019-03-22] MEDS: FOLIC ACID 1 MG TAB PO SCH (07:48)
[2019-03-22] MEDS: HEPARIN SOD (PORCINE) 5000 UNITS/ML VIAL (J1644 PER 1000UNITS) SC SCH ×2 (07:49→21:00)
[2019-03-22] MEDS: CARVedilol 3.125 MG TAB PO SCH ×2 (07:49→21:00)
[2019-03-22] MEDS: LISINOPRIL *2.5 MG* TAB PO SCH (07:49)
[2019-03-22] MEDS: KCL 20MEQ in NS 1000ML 1,000 ML IV SCH ×2 (08:56→22:08)
[2019-03-22] MEDS: methylPREDNISolone INJ 125 MG/2 ML VIAL (J2930) IV SCH (10:55)
[2019-03-22] MEDS: MAGNESIUM GLUCONATE 500 MG TAB PO SCH (10:56)
[2019-03-22] MEDS: LORazepam 2 MG TAB PO PRN ×2 (12:00→14:06)
[2019-03-22 13:57] LABS: BLOOD UREA NITROGEN 10 MG/DL (7-18); CALCIUM LEVEL 8.6 MG/DL (8.8-10.2); CARBON DIOXIDE LEVEL 39 MEQ/L (21-32); CHLORIDE LEVEL 78 MEQ/L (98-107); CREATININE FOR GFR 0.55 MG/DL (0.70-1.30); GLOMERULAR FILTRATION RATE > 60.0 (>49); GLUCOSE, FASTING 121 MG/DL (70-100); POTASSIUM SERUM 4.2 MEQ/L (3.5-5.1); SODIUM LEVEL 122 MEQ/L (136-145)
[2019-03-22] MEDS ORDERED: HALOPERIDOL 5 MG/ML VIAL (J1630) IV PRN (14:30)
--- NOTE | 2019-03-22 15:01 | IPNPDOC ---
Subjective Date Seen The patient was seen on 03/22/19. Subjective Chief Complaint/HPI North is satting well on his home 2 liters. He's tremulous, and exhibiting intermittent confusion during our conversation. Objective Physical Examination General Exam: Positive: Alert, No Acute Distress Eye Exam: Positive: PERRLA; Negative: Sclera icteric ENT Exam: Positive: Atraumatic, Mucous membr. moist/pink Neck Exam: Positive: Supple; Negative: JVD Chest Exam: Positive: Diminished; Negative: Clear to auscultation Heart Exam: Positive: Rate Normal Telemetry: Positive: No significant arrhythmia Abdomen Exam: Positive: Normal bowel sounds Extremity Exam: Negative: Cyanosis Skin Exam: Positive: Nl turgor and temperature Neuro Exam: Positive: Cranial Nerves 3-12 NL Psych Exam: Positive: Other (confused) Assessment /Plan Assessment # Acute on chronic hypoxic and hypercarbic respiratory failure # Acute on chronic COPD exacerbation - serial ABGs show improvement, repeat abg now - decrease solumedrol 40 mg q12 - continue levaquin day# 03/14 # Acute DTs # Chronic alcoholism # Acute metabolic encephalopathy - ativan per CIWA scale - IV haldol prn - if DTs worsen will need intubation # Elevated troponin - likely due to type 2 ischemic event from acute respiratory symptoms # Hypovolemic Hyponatremia - serial BMP q6h - NS @ 100 ml # Hypokalemia - due to chronic alcoholism - corrected # Hypomag - replaced Plan/VTE VTE Prophylaxis Ordered?: Yes (hep sq bid) VTE Exclusion Mechanical Proph: N/A:VTE Prophy Ordered VTE Exclusion Pharmacological: N/A:VTE Prophy Ordered VS, I&O, 24H, Fishbone Vital Signs/I&O Vital Signs Date Time Temp Pulse Resp B/P (MAP) Pulse Ox O2 Delivery O2 Flow Rate FiO2 03/22/19 14:00 99.0 122 24 138/93 (108) 96 Nasal Cannula 03/22/19 14:00 2.0 03/21/19 08:00 30 I&O- Last 24 Hours up to 6 AM 03/22/19 06:00 Intake Total 1620 ml Output Total 845 ml Balance 775 ml Laboratory Data 24H LABS Laboratory Tests 2 03/22/19 04:18: Blood Gas Bicarbonate Standard 41.0H, Arterial Blood pH 7.433, Arterial Blood Partial Pressure CO2 67.8*H, Arterial Blood Partial Pressure O2 89.5, Arterial Blood Total CO2 46.4H, Arterial Blood HCO3 44.3H, Arterial Blood Base Excess 17.1H, Arterial Blood Oxygen Saturation 96.8 03/22/19 05:12: Nucleated Red Blood Cells % (auto) 0.0, Anion Gap , Glomerular Filtration Rate > 60.0, Calcium Level 9.2, Magnesium Level 1.4L 03/22/19 13:05: Anion Gap 5L, Glomerular Filtration Rate > 60.0, Calcium Level 8.6L CBC/BMP Laboratory Tests 03/22/19 05:12 03/22/19 13:05 Microbiology Microbiology 03/21/19 Respiratory Virus Panel (PCR) ([facility]) - Final, Complete ESTELA HUTTON MD Mar 22, 2019 14:59
[2019-03-22 15:03] LABS: ABG BASE EXCESS 10.5 (-2.0-2.0); ABG O2 SATURATION 97.5 % (95.0-99.0); ABG PARTIAL PRESSURE CO2 46.8 mmHg (35.0-45.0); ABG PARTIAL PRESSURE O2 93.5 mmHg (75.0-100.0); ABG STANDARD HCO3 34.2 MEQ/L (22.0-26.0); ABG TOTAL CO2 36.5 MEQ/L (23.0-31.0); ABG pH (ARTERIAL) 7.492 UNITS (7.350-7.450)
[2019-03-22] MEDS ORDERED: LORazepam 2 MG/ML VIAL (J2060) IV ONE (15:30)
[2019-03-22 17:28] LABS: BLOOD UREA NITROGEN 10 MG/DL (7-18); CALCIUM LEVEL 8.6 MG/DL (8.8-10.2); CARBON DIOXIDE LEVEL 42 MEQ/L (21-32); CHLORIDE LEVEL 82 MEQ/L (98-107); CREATININE FOR GFR 0.55 MG/DL (0.70-1.30); GLOMERULAR FILTRATION RATE > 60.0 (>49); GLUCOSE, FASTING 106 MG/DL (70-100); POTASSIUM SERUM 4.6 MEQ/L (3.5-5.1); SODIUM LEVEL 126 MEQ/L (136-145)
[2019-03-22] MEDS: rOPINIRole 0.25 MG TAB(REQUIP) PO SCH (21:00)
[2019-03-22 23:31] LABS: BLOOD UREA NITROGEN 9 MG/DL (7-18); CALCIUM LEVEL 8.6 MG/DL (8.8-10.2); CARBON DIOXIDE LEVEL 44 MEQ/L (21-32); CHLORIDE LEVEL 86 MEQ/L (98-107); GLOMERULAR FILTRATION RATE > 60.0 (>49); GLUCOSE, FASTING 104 MG/DL (70-100); POTASSIUM SERUM 4.6 MEQ/L (3.5-5.1); SODIUM LEVEL 132 MEQ/L (136-145)
[2019-03-23] VITALS (25 sets, daily range): BP systolic 117–159; BP diastolic 63–98; O2SAT 92–100
[2019-03-23] MEDS: IPRATROPIUM 0.5MG/ALBUTEROL 2.5MG INH SOL UD 3ML (DUONEB)(J7620) INH SCH ×6 (04:00→19:40)
[2019-03-23 05:37] LABS: HEMATOCRIT 35.7 % (42.0-52.0); HEMOGLOBIN 11.3 g/dl (13.5-17.5); MEAN CORPUSCULAR HEMOGLOBIN 26.4 pg (27.0-33.0); MEAN CORPUSCULAR HGB CONC 31.7 g/dl (32.0-36.5); MEAN CORPUSCULAR VOLUME 83.4 fl (80.0-96.0); PLATELET COUNT, AUTOMATED 285 10^3/uL (150-450); RED BLOOD COUNT 4.28 10^6/uL (4.30-6.10); WHITE BLOOD COUNT 5.2 10^3/uL (4.0-10.0)
[2019-03-23 05:56] LABS: BLOOD UREA NITROGEN 8 MG/DL (7-18); CALCIUM LEVEL 8.7 MG/DL (8.8-10.2); CARBON DIOXIDE LEVEL 44 MEQ/L (21-32); CHLORIDE LEVEL 90 MEQ/L (98-107); GLOMERULAR FILTRATION RATE > 60.0 (>49); GLUCOSE, FASTING 71 MG/DL (70-100); POTASSIUM SERUM 4.5 MEQ/L (3.5-5.1); SODIUM LEVEL 135 MEQ/L (136-145)
[2019-03-23] MEDS: LevoFLOXacin 750 MG TABLET PO SCH (06:00)
[2019-03-23 08:49] LABS: ABG HCO3 47.2 MEQ/L (22.0-26.0); ABG O2 SATURATION 79.8 % (95.0-99.0); ABG STANDARD HCO3 40.5 MEQ/L (22.0-26.0); ABG TOTAL CO2 50.1 MEQ/L (23.0-31.0); ABG pH (ARTERIAL) 7.311 UNITS (7.350-7.450)
[2019-03-23 08:53] LABS: ABG PARTIAL PRESSURE CO2 95.6 mmHg (35.0-45.0)
[2019-03-23 08:55] LABS: ABG PARTIAL PRESSURE O2 46.1 mmHg (75.0-100.0)
[2019-03-23] MEDS ORDERED: THIAMINE HCL 200 MG/2 ML VIAL (J3411) IV SCH (09:00)
[2019-03-23] MEDS: SYMBICORT 160/4.5MCG INHALER 6GM INH SCH ×2 (09:45→19:40)
[2019-03-23] MEDS ORDERED: ONDANSETRON 4MG/2ML VIAL (J2405) IV PRN (10:30)
[2019-03-23] MEDS ORDERED: METOPROLOL 5 MG/5 ML VIAL IV PRN (10:30)
[2019-03-23 11:08] LABS: ABG O2 SATURATION 95.5 % (95.0-99.0); ABG PARTIAL PRESSURE O2 79.1 mmHg (75.0-100.0); ABG STANDARD HCO3 40.9 MEQ/L (22.0-26.0); ABG TOTAL CO2 47.3 MEQ/L (23.0-31.0); ABG pH (ARTERIAL) 7.396 UNITS (7.350-7.450)
[2019-03-23] MEDS: KCL 20MEQ in NS 1000ML 1,000 ML IV SCH ×2 (11:19→21:01)
[2019-03-23] MEDS: HEPARIN SOD (PORCINE) 5000 UNITS/ML VIAL (J1644 PER 1000UNITS) SC SCH ×2 (11:19→21:01)
[2019-03-23] MEDS: DOXYCYCLINE HYCLATE 100 MG in D5W MINI-BAG PLUS 100 ML IV SCH ×2 (11:19→23:56)
--- NOTE | 2019-03-23 14:38 | IPNPDOC ---
Subjective Date Seen The patient was seen on 03/23/19. Subjective Chief Complaint/HPI Yesterday afternoon, Jeremias developed full blown DTs, and required switching from oral to IV ativan. Bedside CO2 monitors are not available at this hospital. His DTs are well controlled, however, this morning he's more sleepy, repat ABG shows ph 7.31, and PCO2 95.6 and he was transferred to ICU because they are unable to perform NIPPV in the PCU. Repeat ABG after use of NIPPV shows improved gas exchange, and mentation. Objective Physical Examination General Exam: Positive: No Acute Distress, Other (sleepy, but arousable) Eye Exam: Positive: PERRLA; Negative: Sclera icteric ENT Exam: Positive: Atraumatic, Mucous membr. moist/pink Neck Exam: Positive: Supple; Negative: JVD Chest Exam: Positive: Diminished; Negative: Clear to auscultation Heart Exam: Positive: Rate Normal Telemetry: Positive: No significant arrhythmia Abdomen Exam: Positive: Normal bowel sounds, Soft; Negative: Tenderness Extremity Exam: Positive: Normal pulses; Negative: Cyanosis, Edema, Tenderness Skin Exam: Positive: Nl turgor and temperature Psych Exam: Positive: Other (confused) Assessment /Plan Assessment # Acute on chronic hypoxic and hypercarbic respiratory failure # Acute on chronic COPD exacerbation - NIPPV settings d/w Dr. Steiner, agrees with settings - solumedrol 40 mg q12 - doxycycline 100 mg bid x total of 5 days of abx - will need to stay in ICU until DTs resolve - will need bipap qhs prn # Acute DTs # Chronic alcoholism # Acute metabolic encephalopathy - IV ativan per CIWA scale - IV haldol prn - if DTs worsen will need intubation # Elevated troponin - likely due to type 2 ischemic event from acute respiratory symptoms # Hypovolemic Hyponatremia - resolved, continue IVFs until more alert # Hypokalemia - due to chronic alcoholism - corrected # Hypomag - replaced Plan/VTE VTE Prophylaxis Ordered?: Yes (hep sq bid) VTE Exclusion Mechanical Proph: N/A:VTE Prophy Ordered VTE Exclusion Pharmacological: N/A:VTE Prophy Ordered VS, I&O, 24H, Fishbone Vital Signs/I&O Vital Signs Date Time Temp Pulse Resp B/P (MAP) Pulse Ox O2 Delivery O2 Flow Rate FiO2 03/23/19 13:44 30 03/23/19 12:00 94 118/74 03/23/19 11:12 98.3 16 93 NIPPV (BIPAP/CPAP) 03/23/19 09:47 2.0 I&O- Last 24 Hours up to 6 AM 03/23/19 06:00 Intake Total 2940 ml Output Total 920 ml Balance 2020 ml Laboratory Data 24H LABS Laboratory Tests 2 03/22/19 14:57: Blood Gas Bicarbonate Standard 34.2H, Arterial Blood pH 7.492H, Arterial Blood Partial Pressure CO2 46.8H, Arterial Blood Partial Pressure O2 93.5, Arterial Blood Total CO2 36.5H, Arterial Blood HCO3 35.0H, Arterial Blood Base Excess 10.5H, Arterial Blood Oxygen Saturation 97.5 03/22/19 16:54: Anion Gap 2L, Glomerular Filtration Rate > 60.0, Calcium Level 8.6L 03/22/19 22:58: Anion Gap 2L, Glomerular Filtration Rate > 60.0, Calcium Level 8.6L 03/23/19 05:04: Anion Gap 1L, Glomerular Filtration Rate > 60.0, Calcium Level 8.7L, Nucleated Red Blood Cells % (auto) 0.0 03/23/19 08:37: Blood Gas Bicarbonate Standard 40.5H, Arterial Blood pH 7.311L, Arterial Blood Partial Pressure CO2 95.6*H, Arterial Blood Partial Pressure O2 46.1*L, Arterial Blood Total CO2 50.1H, Arterial Blood HCO3 47.2H, Arterial Blood Base Excess 17.0H, Arterial Blood Oxygen Saturation 79.8L 03/23/19 11:00: Blood Gas Bicarbonate Standard 40.9H, Arterial Blood pH 7.396, Arterial Blood Partial Pressure CO2 75.0*H, Arterial Blood Partial Pressure O2 79.1, Arterial Blood Total CO2 47.3H, Arterial Blood HCO3 45.0H, Arterial Blood Base Excess 17.0H, Arterial Blood Oxygen Saturation 95.5 CBC/BMP Laboratory Tests 03/22/19 16:54 03/22/19 22:58 03/23/19 05:04 Microbiology Microbiology 03/21/19 Respiratory Virus Panel (PCR) ([facility]) - Final, Complete ESTELA HUTTON MD Mar 23, 2019 14:38
[2019-03-23] MEDS: methylPREDNISolone INJ 125 MG/2 ML VIAL (J2930) IV SCH (21:01)
[2019-03-24] VITALS (21 sets, daily range): BP systolic 118–159; BP diastolic 65–98
[2019-03-24] MEDS ORDERED: LORazepam 2 MG/ML VIAL (J2060) As Ordered ONE (00:02)
[2019-03-24] MEDS: IPRATROPIUM 0.5MG/ALBUTEROL 2.5MG INH SOL UD 3ML (DUONEB)(J7620) INH SCH ×6 (00:04→19:32)
[2019-03-24] MEDS: LORazepam 2 MG/ML VIAL (J2060) IV PRN (00:07)
[2019-03-24 04:57] LABS: HEMATOCRIT 36.2 % (42.0-52.0); HEMOGLOBIN 11.6 g/dl (13.5-17.5); MEAN CORPUSCULAR HEMOGLOBIN 26.8 pg (27.0-33.0); MEAN CORPUSCULAR VOLUME 83.6 fl (80.0-96.0); PLATELET COUNT, AUTOMATED 274 10^3/uL (150-450); RED BLOOD COUNT 4.33 10^6/uL (4.30-6.10); WHITE BLOOD COUNT 4.8 10^3/uL (4.0-10.0)
[2019-03-24 05:16] LABS: BLOOD UREA NITROGEN 8 MG/DL (7-18); CALCIUM LEVEL 9.3 MG/DL (8.8-10.2); CARBON DIOXIDE LEVEL 39 MEQ/L (21-32); CHLORIDE LEVEL 90 MEQ/L (98-107); CREATININE FOR GFR 0.47 MG/DL (0.70-1.30); GLOMERULAR FILTRATION RATE > 60.0 (>49); GLUCOSE, FASTING 106 MG/DL (70-100); MAGNESIUM LEVEL 1.8 MG/DL (1.8-2.4); POTASSIUM SERUM 4.2 MEQ/L (3.5-5.1); SODIUM LEVEL 132 MEQ/L (136-145)
[2019-03-24 05:41] LABS: ABG BASE EXCESS 8.7 (-2.0-2.0); ABG HCO3 36.3 MEQ/L (22.0-26.0); ABG O2 SATURATION 96.6 % (95.0-99.0); ABG PARTIAL PRESSURE O2 93.9 mmHg (75.0-100.0); ABG STANDARD HCO3 32.5 MEQ/L (22.0-26.0); ABG TOTAL CO2 38.3 MEQ/L (23.0-31.0); ABG pH (ARTERIAL) 7.354 UNITS (7.350-7.450)
[2019-03-24 05:47] LABS: ABG PARTIAL PRESSURE CO2 66.6 mmHg (35.0-45.0)
--- NOTE | 2019-03-24 08:37 | IPN ---
DATE: 03/23/2019 Mr. Spence is a 63-year-old male who with a past history of alcoholism Chronic obstructive pulmonary disease (COPD), Congestive heart failure (CHF) and transient ischemic attack (TIA) was admitted after a mechanical fall. This morning an arterial blood gas has shown acute and chronic hypercapnic respiratory acidemia. He had been transferred to the intensive care and started on noninvasive mechanical ventilation with a setting of 12/6. On this setting, he was receiving approximately 400 mL at title volume. This discuss with Dr. Haskins and he was managing the patient appropriately. We both did not believe formal pulmonary consultation was indicated. Apparently, recently it was mandated that a pulmonary consultation had to be done on any the patient on nasal intermittent mandatory ventilation (NIMV), though Dr. Haskins has simple vent privileges so this seems unnecessary. His workup manage was appropriate and at this point we will not go further with a consultation unless provider caring for the patient feels there is a clinical indication for consultation.
[2019-03-24] MEDS: PARoxetine 25 MG CR TAB (PAXIL CR) PO SCH (09:00)
[2019-03-24] MEDS: CARVedilol 3.125 MG TAB PO SCH ×2 (10:03→21:39)
[2019-03-24] MEDS: MULTIVITAMINS/MINERALS THERAP 1 TAB PO SCH (10:03)
[2019-03-24] MEDS: THIAMINE 100 MG TAB PO SCH (10:03)
[2019-03-24] MEDS: FOLIC ACID 1 MG TAB PO SCH (10:03)
[2019-03-24] MEDS: ASPIRIN 81 MG ENTERIC TAB PO SCH (10:03)
[2019-03-24] MEDS: CLOPIDOGREL 75 MG TAB PO SCH (10:03)
[2019-03-24] MEDS: methylPREDNISolone INJ 125 MG/2 ML VIAL (J2930) IV SCH ×2 (10:14→21:40)
[2019-03-24] MEDS: HEPARIN SOD (PORCINE) 5000 UNITS/ML VIAL (J1644 PER 1000UNITS) SC SCH ×2 (10:14→21:40)
[2019-03-24] MEDS: KCL 20MEQ in NS 1000ML 1,000 ML IV SCH ×2 (10:21→22:26)
[2019-03-24] MEDS: SYMBICORT 160/4.5MCG INHALER 6GM INH SCH ×2 (11:43→19:33)
--- NOTE | 2019-03-24 12:30 | IPNPDOC ---
Subjective Date Seen The patient was seen on 03/24/19. Subjective Chief Complaint/HPI North required IV ativan overnight for DTs. He's awake, and easier to arouse and following directions this morning, vitals are stable. Repeat ABG this am shows normal ph, and improving CO2 level. Objective Physical Examination General Exam: Positive: Alert, Cooperative, No Acute Distress Eye Exam: Positive: PERRLA, Conjunctiva & lids normal; Negative: Sclera icteric ENT Exam: Positive: Atraumatic Neck Exam: Positive: Supple; Negative: JVD Chest Exam: Positive: Diminished; Negative: Clear to auscultation Heart Exam: Positive: Rate Normal Telemetry: Positive: No significant arrhythmia Abdomen Exam: Positive: Normal bowel sounds, Soft; Negative: Tenderness Extremity Exam: Positive: Normal pulses; Negative: Cyanosis, Edema, Tenderness Skin Exam: Positive: Nl turgor and temperature Psych Exam: Positive: Other (confused) Assessment /Plan Assessment # Acute on chronic hypoxic and hypercarbic respiratory failure # Acute on chronic COPD exacerbation - NIPPV prn and qhs while receiving IV ativan for Acute DTs - may wean off NIPPV this morning, and resume diet, recommend using NIPPV during sleep - solumedrol 40 mg q12 - doxycycline 100 mg bid x total of 5 days of abx - will need to stay in ICU until DTs resolve # Acute DTs # Chronic alcoholism # Acute metabolic encephalopathy - IV ativan per CIWA scale - IV haldol prn # Elevated troponin - likely due to type 2 ischemic event from acute respiratory symptoms # Hypovolemic Hyponatremia - resolved, continue IVFs until taking adequate po # Hypokalemia - due to chronic alcoholism - corrected # Hypomag - corrected Plan/VTE VTE Prophylaxis Ordered?: Yes (hep sq bid) VTE Exclusion Mechanical Proph: N/A:VTE Prophy Ordered VTE Exclusion Pharmacological: N/A:VTE Prophy Ordered VS, I&O, 24H, Fishbone Vital Signs/I&O Vital Signs Date Time Temp Pulse Resp B/P (MAP) Pulse Ox O2 Delivery O2 Flow Rate FiO2 03/24/19 10:03 70 122/68 03/24/19 08:00 98.3 21 96 NIPPV (BIPAP/CPAP) 30 03/23/19 09:47 2.0 I&O- Last 24 Hours up to 6 AM 03/24/19 06:00 Intake Total 1950 ml Output Total 1350 ml Balance 600 ml Laboratory Data 24H LABS Laboratory Tests 2 03/24/19 04:34: Nucleated Red Blood Cells % (auto) 0.0, Anion Gap 3L, Glomerular Filtration Rate > 60.0, Calcium Level 9.3, Magnesium Level 1.8 03/24/19 05:30: Blood Gas Bicarbonate Standard 32.5H, Arterial Blood pH 7.354, Arterial Blood Partial Pressure CO2 66.6*H, Arterial Blood Partial Pressure O2 93.9, Arterial Blood Total CO2 38.3H, Arterial Blood HCO3 36.3H, Arterial Blood Base Excess 8.7H, Arterial Blood Oxygen Saturation 96.6 CBC/BMP Laboratory Tests 03/24/19 04:34 Microbiology Microbiology 03/21/19 Respiratory Virus Panel (PCR) ([facility]) - Final, Complete ESTELA HUTTON MD Mar 24, 2019 12:30
[2019-03-24] MEDS: rOPINIRole 0.25 MG TAB(REQUIP) PO SCH (21:39)
[2019-03-24] MEDS: ATORVASTATIN 20 MG TAB PO SCH (21:40)
[2019-03-25] MEDS: IPRATROPIUM 0.5MG/ALBUTEROL 2.5MG INH SOL UD 3ML (DUONEB)(J7620) INH SCH ×7 (00:10→23:32)
[2019-03-25 05:26] LABS: HEMATOCRIT 29.5 % (42.0-52.0); HEMOGLOBIN 9.8 g/dl (13.5-17.5); MEAN CORPUSCULAR HEMOGLOBIN 26.8 pg (27.0-33.0); MEAN CORPUSCULAR HGB CONC 33.2 g/dl (32.0-36.5); MEAN CORPUSCULAR VOLUME 80.6 fl (80.0-96.0); PLATELET COUNT, AUTOMATED 279 10^3/uL (150-450); RED BLOOD COUNT 3.66 10^6/uL (4.30-6.10); WHITE BLOOD COUNT 5.2 10^3/uL (4.0-10.0)
[2019-03-25 05:44] LABS: BLOOD UREA NITROGEN 10 MG/DL (7-18); CALCIUM LEVEL 8.2 MG/DL (8.8-10.2); CARBON DIOXIDE LEVEL 39 MEQ/L (21-32); CHLORIDE LEVEL 88 MEQ/L (98-107); CREATININE FOR GFR 0.45 MG/DL (0.70-1.30); GLOMERULAR FILTRATION RATE > 60.0 (>49); GLUCOSE, FASTING 142 MG/DL (70-100); POTASSIUM SERUM 3.8 MEQ/L (3.5-5.1); SODIUM LEVEL 130 MEQ/L (136-145)
[2019-03-25] MEDS: SYMBICORT 160/4.5MCG INHALER 6GM INH SCH ×2 (07:46→20:00)
[2019-03-25 07:47] VITALS: O2SAT 98
[2019-03-25 08:00] VITALS: BP 145/78
[2019-03-25] MEDS: THIAMINE 100 MG TAB PO SCH (08:58)
[2019-03-25] MEDS: CLOPIDOGREL 75 MG TAB PO SCH (08:58)
[2019-03-25] MEDS: MULTIVITAMINS/MINERALS THERAP 1 TAB PO SCH (08:58)
[2019-03-25] MEDS: CARVedilol 3.125 MG TAB PO SCH ×2 (08:59→20:06)
[2019-03-25] MEDS: FOLIC ACID 1 MG TAB PO SCH (08:59)
[2019-03-25] MEDS: ASPIRIN 81 MG ENTERIC TAB PO SCH (08:59)
[2019-03-25] MEDS: PARoxetine 25 MG CR TAB (PAXIL CR) PO SCH (09:00)
[2019-03-25] MEDS: methylPREDNISolone INJ 125 MG/2 ML VIAL (J2930) IV SCH (09:01)
[2019-03-25] MEDS: HEPARIN SOD (PORCINE) 5000 UNITS/ML VIAL (J1644 PER 1000UNITS) SC SCH ×2 (09:01→20:06)
--- NOTE | 2019-03-25 11:22 | IPNPDOC ---
Subjective Date Seen The patient was seen on 03/25/19. Subjective Chief Complaint/HPI Jeremias looks great and is wide awake on 2 liters. He only wore bipap last night for short period of time. He's asking to go home. Objective Physical Examination General Exam: Positive: Alert, Cooperative, No Acute Distress Eye Exam: Positive: PERRLA, Conjunctiva & lids normal; Negative: Sclera icteric ENT Exam: Positive: Atraumatic Neck Exam: Positive: Supple; Negative: JVD Chest Exam: Positive: Diminished; Negative: Clear to auscultation Heart Exam: Positive: Rate Normal Telemetry: Positive: No significant arrhythmia Abdomen Exam: Positive: Normal bowel sounds, Soft; Negative: Tenderness Extremity Exam: Positive: Normal pulses; Negative: Cyanosis, Edema, Tenderness Skin Exam: Positive: Nl turgor and temperature Psych Exam: Positive: Mental status NL, Mood NL, Other; Negative: Anxiety Assessment /Plan Assessment # Acute on chronic hypoxic and hypercarbic respiratory failure # Acute on chronic COPD exacerbation # Chronic cor pulmonale - NIPPV prn - may wean off NIPPV this morning, and resume diet, recommend using NIPPV during sleep - change to prednisone 20 mg - doxycycline 100 mg bid x total of 5 days of abx, will stop after 03/26 doses given - continue to monitor in ICU incase bipap is required - await Pt re-eval in am # Acute DTs # Chronic alcoholism # Acute metabolic encephalopathy - IV ativan per CIWA scale - IV haldol prn # Elevated troponin - likely due to type 2 ischemic event from acute respiratory symptoms # Hypovolemic Hyponatremia - resolved, continue IVFs until taking adequate po # Hypokalemia - due to chronic alcoholism - corrected # Hypomag - corrected Plan/VTE VTE Prophylaxis Ordered?: Yes (hep sq bid) VTE Exclusion Mechanical Proph: N/A:VTE Prophy Ordered VTE Exclusion Pharmacological: N/A:VTE Prophy Ordered VS, I&O, 24H, Fishbone Vital Signs/I&O Vital Signs Date Time Temp Pulse Resp B/P (MAP) Pulse Ox O2 Delivery O2 Flow Rate FiO2 03/25/19 08:59 96 145/78 03/25/19 07:47 98 Nasal Cannula 2.0 03/24/19 23:51 97.8 20 03/24/19 09:00 30 I&O- Last 24 Hours up to 6 AM 03/25/19 06:00 Intake Total 4440 ml Output Total 2650 ml Balance 1790 ml Laboratory Data 24H LABS Laboratory Tests 2 03/25/19 04:45: Nucleated Red Blood Cells % (auto) 0.0, Anion Gap 3L, Glomerular Filtration Rate > 60.0, Calcium Level 8.2L CBC/BMP Laboratory Tests 03/25/19 04:45 Microbiology Microbiology 03/21/19 Respiratory Virus Panel (PCR) ([facility]) - Final, Complete ESTELA HUTTON MD Mar 25, 2019 11:22
[2019-03-25 12:00] VITALS: BP 135/72
[2019-03-25 16:00] VITALS: BP 162/102
[2019-03-25 17:04] VITALS: BP 131/75
[2019-03-25] MEDS: EXCEDRIN MIGRAINE TABLET PO PRN (19:31)
[2019-03-25 20:00] VITALS: BP 159/93
[2019-03-25] MEDS: rOPINIRole 0.25 MG TAB(REQUIP) PO SCH (20:05)
[2019-03-25] MEDS: ATORVASTATIN 20 MG TAB PO SCH (20:05)
[2019-03-25] MEDS: LORazepam 2 MG/ML VIAL (J2060) IV PRN (20:06)
[2019-03-26] VITALS: BP 140/77
[2019-03-26] MEDS: IPRATROPIUM 0.5MG/ALBUTEROL 2.5MG INH SOL UD 3ML (DUONEB)(J7620) INH SCH ×5 (03:46→18:25)
[2019-03-26 04:05] VITALS: BP 132/73
[2019-03-26] MEDS: SYMBICORT 160/4.5MCG INHALER 6GM INH SCH ×2 (07:43→20:00)
[2019-03-26 08:00] VITALS: BP 110/65
[2019-03-26 08:11] LABS: BLOOD UREA NITROGEN 9 MG/DL (7-18); CALCIUM LEVEL 9.1 MG/DL (8.8-10.2); CARBON DIOXIDE LEVEL 44 MEQ/L (21-32); CHLORIDE LEVEL 87 MEQ/L (98-107); GLOMERULAR FILTRATION RATE > 60.0 (>49); GLUCOSE, FASTING 82 MG/DL (70-100); POTASSIUM SERUM 3.4 MEQ/L (3.5-5.1); SODIUM LEVEL 134 MEQ/L (136-145)
[2019-03-26] MEDS: CLOPIDOGREL 75 MG TAB PO SCH (08:56)
[2019-03-26] MEDS: PARoxetine 25 MG CR TAB (PAXIL CR) PO SCH (08:56)
[2019-03-26] MEDS: ASPIRIN 81 MG ENTERIC TAB PO SCH (08:56)
[2019-03-26] MEDS: FOLIC ACID 1 MG TAB PO SCH (08:56)
[2019-03-26] MEDS: CARVedilol 3.125 MG TAB PO SCH ×2 (08:57→20:45)
[2019-03-26] MEDS: predniSONE 20 MG TAB PO SCH (08:58)
[2019-03-26] MEDS: MULTIVITAMINS/MINERALS THERAP 1 TAB PO SCH (08:58)
[2019-03-26] MEDS: THIAMINE 100 MG TAB PO SCH (08:58)
[2019-03-26] MEDS: HEPARIN SOD (PORCINE) 5000 UNITS/ML VIAL (J1644 PER 1000UNITS) SC SCH ×2 (08:58→20:47)
[2019-03-26 15:06] VITALS: BP 91/68
--- NOTE | 2019-03-26 16:48 | IPNPDOC ---
Subjective Date Seen The patient was seen on 03/26/19. Subjective Chief Complaint/HPI Alert this morning, breathing non-labored. Not confused. DTs appear to have resolved. Has not needed IV ativan, scoring low on the CIWA Objective Physical Examination General Exam: Positive: Alert, Cooperative, No Acute Distress Eye Exam: Positive: PERRLA, Conjunctiva & lids normal; Negative: Sclera icteric ENT Exam: Positive: Atraumatic Neck Exam: Positive: Supple; Negative: JVD Chest Exam: Positive: Normal air movement; Negative: Clear to auscultation Heart Exam: Positive: Rate Normal, Normal S1, Normal S2 Telemetry: Positive: No significant arrhythmia Abdomen Exam: Positive: Normal bowel sounds, Soft; Negative: Tenderness Extremity Exam: Positive: Normal pulses; Negative: Cyanosis, Edema, Tenderness Skin Exam: Positive: Nl turgor and temperature Neuro Exam: Positive: Normal Speech Psych Exam: Positive: Mental status NL, Mood NL; Negative: Anxiety Assessment /Plan Assessment # Acute on chronic hypoxic and hypercarbic respiratory failure # Acute on chronic COPD exacerbation # Chronic cor pulmonale - transfer to med/surg, [facility] once cleared by PT - will have completed steroid course in am - doxycycline 100 mg bid x total of 5 days of abx, will stop after 03/26 doses given # Acute DTs # Chronic alcoholism # Acute metabolic encephalopathy - disocontinue IV ativan per CIWA scale - IV haldol prn # Elevated troponin - likely due to type 2 ischemic event from acute respiratory symptoms # Hypovolemic Hyponatremia - resolved, continue IVFs until taking adequate po # Hypokalemia - due to chronic alcoholism - corrected # Hypomag - corrected Plan/VTE VTE Prophylaxis Ordered?: Yes (hep sq bid) VTE Exclusion Mechanical Proph: N/A:VTE Prophy Ordered VTE Exclusion Pharmacological: N/A:VTE Prophy Ordered VS, I&O, 24H, Fishbone Vital Signs/I&O Vital Signs Date Time Temp Pulse Resp B/P (MAP) Pulse Ox O2 Delivery O2 Flow Rate FiO2 03/26/19 15:06 97.6 108 18 91/68 (76) 97 Nasal Cannula 3.0 03/24/19 09:00 30 I&O- Last 24 Hours up to 6 AM 03/26/19 06:00 Intake Total 1480 ml Output Total 5375 ml Balance -3895 ml Laboratory Data 24H LABS Laboratory Tests 2 03/26/19 07:34: Anion Gap 3L, Glomerular Filtration Rate > 60.0, Calcium Level 9.1 CBC/BMP Laboratory Tests 03/26/19 07:34 Microbiology Microbiology 03/21/19 Respiratory Virus Panel (PCR) ([facility]) - Final, Complete ESTELA HUTTON MD Mar 26, 2019 16:48
[2019-03-26] MEDS: EXCEDRIN MIGRAINE TABLET PO PRN (18:15)
[2019-03-26] MEDS: rOPINIRole 0.25 MG TAB(REQUIP) PO SCH (20:45)
[2019-03-26] MEDS: ATORVASTATIN 20 MG TAB PO SCH (20:45)
[2019-03-26 22:00] VITALS: BP 93/66
[2019-03-27] MEDS: IPRATROPIUM 0.5MG/ALBUTEROL 2.5MG INH SOL UD 3ML (DUONEB)(J7620) INH SCH ×7 (04:00→23:16)
[2019-03-27 06:00] VITALS: BP 120/74
[2019-03-27] MEDS: SYMBICORT 160/4.5MCG INHALER 6GM INH SCH ×2 (08:34→19:38)
[2019-03-27] MEDS: CLOPIDOGREL 75 MG TAB PO SCH (09:25)
[2019-03-27] MEDS: FOLIC ACID 1 MG TAB PO SCH (09:25)
[2019-03-27] MEDS: CARVedilol 3.125 MG TAB PO SCH ×2 (09:25→20:01)
[2019-03-27] MEDS: MULTIVITAMINS/MINERALS THERAP 1 TAB PO SCH (09:26)
[2019-03-27] MEDS: HEPARIN SOD (PORCINE) 5000 UNITS/ML VIAL (J1644 PER 1000UNITS) SC SCH ×2 (09:26→20:01)
[2019-03-27] MEDS: ASPIRIN 81 MG ENTERIC TAB PO SCH (09:26)
[2019-03-27] MEDS: THIAMINE 100 MG TAB PO SCH (09:27)
[2019-03-27] MEDS: predniSONE 20 MG TAB PO SCH (09:28)
[2019-03-27] MEDS: EXCEDRIN MIGRAINE TABLET PO PRN (09:41)
[2019-03-27] MEDS: PARoxetine 25 MG CR TAB (PAXIL CR) PO SCH (09:42)
[2019-03-27 14:00] VITALS: BP 112/70
[2019-03-27] MEDS: IBUPROFEN 600 MG TAB PO SCH ×2 (15:14→22:03)
[2019-03-27] MEDS: ATORVASTATIN 20 MG TAB PO SCH (20:00)
[2019-03-27] MEDS: rOPINIRole 0.25 MG TAB(REQUIP) PO SCH (20:00)
[2019-03-27 20:01] VITALS: BP 140/74
--- NOTE | 2019-03-27 21:42 | IPNPDOC ---
Subjective Date Seen The patient was seen on 03/27/19. Subjective Chief Complaint/HPI The patient reports that he is feeling well today. He is actually requesting to go home. His only major complaint at this time is that of pain in the left knee, he fell and landed on this knee previously, and has some bruising, he is requesting an Maurizio wrap. I will put in an order for this, as well as a heating pad. General: Reports: Normal Appetite; Denies: Chills, Night Sweats, Fatigue, Malaise Constitutional: Denies: Chills, Fever, Night Sweats Eyes: Denies: Pain, Vision change ENT: Denies: Head Aches, Ear Pain, Dysphagia Skin: Denies: Rash, Lesions, Breakdown Pulmonary: Reports: Dyspnea (chronic); Denies: Cough Cardiovascular: Denies: Chest Pain, Palpitations, Orthopnea, Paroxysmal Noc. Dyspnea, Lt Headedness Gastrointestinal: Denies: Nausea, Vomiting, Abdominal Pain, Diarrhea, Constipation Genitourinary: Denies: Dysuria, Frequency, Incontinence, Retention Hematologic: Reports: Bruising (left knee secondary to prior trauma); Denies: Bleeding Excessively Musculoskeletal: Denies: Neck Pain, Back Pain, Joint Pain, Muscle Pain, Spasms Neurological: Denies: Weakness, Numbness, Change in speech, Confusion Psych: Reports: Mood Normal; Denies: Depression, Memory Issues Objective Physical Examination General Exam: Positive: Alert, No Acute Distress Eye Exam: Positive: PERRLA, Conjunctiva & lids normal; Negative: Sclera icteric ENT Exam: Positive: Atraumatic Neck Exam: Positive: Supple; Negative: JVD Chest Exam: Positive: Normal air movement; Negative: Clear to auscultation Heart Exam: Positive: Rate Normal, Normal S1, Normal S2 Telemetry: Positive: No significant arrhythmia Abdomen Exam: Positive: Normal bowel sounds, Soft; Negative: Tenderness Extremity Exam: Positive: Normal pulses, Swelling (minimal bruising to left knee); Negative: Cyanosis, Edema, Tenderness Skin Exam: Positive: Nl turgor and temperature Neuro Exam: Positive: Normal Speech Psych Exam: Positive: Mental status NL, Mood NL, Oriented x 3; Negative: Anxiety Assessment /Plan Plan/VTE VTE Prophylaxis Ordered?: Yes (hep sq bid) VTE Exclusion Mechanical Proph: N/A:VTE Prophy Ordered VTE Exclusion Pharmacological: N/A:VTE Prophy Ordered Plan # Acute on chronic hypoxic and hypercarbic respiratory failure # Acute on chronic COPD exacerbation # Chronic cor pulmonale - Home once cleared by PT, they recommend home with services, but he was not safe for discharge today. - Completed steroid course and doxycycline 100 mg bid x total of 5 days of abx # Acute DTs # Chronic alcoholism # Acute metabolic encephalopathy - Resolved # Type 2 LA - Elevted Troponin on admission - likely due to type 2 ischemic event from acute respiratory symptoms # Hypovolemic Hyponatremia - resolved # Hypokalemia - due to chronic alcoholism - corrected # Hypomag - corrected VS, I&O, 24H, Fishbone Vital Signs/I&O Vital Signs Date Time Temp Pulse Resp B/P (MAP) Pulse Ox O2 Delivery O2 Flow Rate FiO2 03/27/19 20:01 101 140/74 03/27/19 19:41 20 03/27/19 14:00 98.0 94 Room Air 03/27/19 11:07 3.0 03/24/19 09:00 30 I&O- Last 24 Hours up to 6 AM 03/27/19 06:00 Intake Total 2675 ml Output Total 1740 ml Balance 935 ml Laboratory Data Microbiology Microbiology 03/21/19 Respiratory Virus Panel (PCR) ([facility]) - Final, Complete JOSE ANGEL BLACKMON DO Mar 27, 2019 21:42
[2019-03-27 22:00] VITALS: BP 116/65
[2019-03-28] MEDS: IPRATROPIUM 0.5MG/ALBUTEROL 2.5MG INH SOL UD 3ML (DUONEB)(J7620) INH SCH ×3 (03:45→10:32)
[2019-03-28] MEDS: IBUPROFEN 600 MG TAB PO SCH (05:30)
[2019-03-28 06:00] VITALS: BP 119/65
[2019-03-28] MEDS: SYMBICORT 160/4.5MCG INHALER 6GM INH SCH (07:29)
[2019-03-28] MEDS: FOLIC ACID 1 MG TAB PO SCH (09:09)
[2019-03-28] MEDS: MULTIVITAMINS/MINERALS THERAP 1 TAB PO SCH (09:10)
[2019-03-28] MEDS: CLOPIDOGREL 75 MG TAB PO SCH (09:10)
[2019-03-28] MEDS: THIAMINE 100 MG TAB PO SCH (09:10)
[2019-03-28] MEDS: ASPIRIN 81 MG ENTERIC TAB PO SCH (09:10)
[2019-03-28] MEDS: CARVedilol 3.125 MG TAB PO SCH (09:10)
[2019-03-28] MEDS: HEPARIN SOD (PORCINE) 5000 UNITS/ML VIAL (J1644 PER 1000UNITS) SC SCH (09:10)
[2019-03-28] MEDS: PARoxetine 25 MG CR TAB (PAXIL CR) PO SCH (09:10)
[2019-03-28] MEDS ORDERED: GI COCKTAIL 50ML BTL(HYOSCYAMINE/MAALOX/LIDOCAINE VISCOUS)(1:3:1) PO ONE (13:00)
--- NOTE | 2019-03-28 19:16 | DS.PDOC ---
Discharge Summary General Date of Admission Mar 21, 2019 at 03:06 Date of Discharge 03/28/19 Attending Physician: LILIANA GEIGER MD Discharge Summary PROCEDURES PERFORMED DURING STAY: None. ADMITTING DIAGNOSES: 1. COPD exacerbation, acute on chronic respiratory failure, alcohol withdrawal. DISCHARGE DIAGNOSES: 1. COPD exacerbation, acute on chronic respiratory failure, alcohol withdrawal. COMPLICATIONS/CHIEF COMPLAINT: Altered Mental Status, Copd With Acute Excerbation. HISTORY OF PRESENT ILLNESS: 63-year-old male with past medical history of COPD, alcohol abuse, was admitted for acute on chronic respiratory failure secondary to COPD exacerbation and alcohol withdrawal. Patient was treated for alcohol withdrawal as per protocol with benzodiazepines. Patient was treated with steroids and doxycycline along with supportive care for COPD exacerbation/respiratory failure. Patient has improved significantly, clinically back to his baseline, evaluated by PT and cleared for discharge home with home services. Patient seen in the morning, comfortable, at baseline, without any complaints, stable for discharge home. Patient developed midsternal sharp chest pain prior to discharge, EKG/troponin without acute ischemia, symptoms suggestive of GERD that he was also reporting earlier in the day. Patient is cleared for discharge and outpatient follow-up with [employer], turbine measurements engineer and PCP. HOSPITAL COURSE: As above. DISCHARGE MEDICATIONS: Please see below. ALLERGIES: Please see below. PHYSICAL EXAMINATION: VITAL SIGNS: Please see below. GENERAL: No distress HEENT: Normocephalic, atraumatic, moist mucous membranes NECK: Supple CARDIOVASCULAR EXAMINATION: S1, S2, no murmurs RESPIRATORY EXAMINATION: Diminished, scattered rhonchi ABDOMINAL EXAMINATION: Soft, nontender, nondistended, positive bowel sounds EXTREMITIES: Range of motion intact SKIN: No rash NEUROLOGICAL EXAMINATION: no focal deficits PSYCHIATRIC EXAMINATION: Calm and cooperative LABORATORY DATA: Please see below. PROGNOSIS: Fair ACTIVITY: As tolerated. DIET: Cardiac DISCHARGE PLAN: Follow-up with [employer], turbine measurements engineer and PCP 1-2 weeks DISPOSITION: 01 Home, Self-Care. DISCHARGE INSTRUCTIONS: 1. As above. DISCHARGE CONDITION: Stable. TIME SPENT ON DISCHARGE: Greater than 32 minutes. Vital Signs/I&Os Vital Signs Date Time Temp Pulse Resp B/P (MAP) Pulse Ox O2 Delivery O2 Flow Rate FiO2 03/28/19 09:00 3.0 03/28/19 06:00 97.9 76 16 119/65 (83) 98 Nasal Cannula 03/24/19 09:00 30 I&O- Last 24 Hours up to 6 AM 03/28/19 06:00 Intake Total 3520 ml Output Total 2655 ml Balance 865 ml Laboratory Data Labs 24H Laboratory Tests 2 03/28/19 11:31: Troponin I 0.09 Microbiology Microbiology 03/21/19 Respiratory Virus Panel (PCR) ([facility]) - Final, Complete Discharge Medications Scheduled Aspirin (Aspirin EC) 81 Mg Tablet.dr, 81 MG PO DAILY, (Reported) Atorvastatin Calcium (Atorvastatin Calcium) 40 Mg Tablet, 40 MG PO DAILY, (Reported) Carvedilol (Carvedilol) 3.125 Mg Tablet, 3.125 MG PO BID, (Reported) Clopidogrel Bisulfate (Clopidogrel) 75 Mg Tablet, 75 MG PO DAILY, (Reported) Fluticasone Propion/Salmeterol (Airduo Respiclick 232-14 Mcg) 1 Each Aer.pow.ba, 1 PUFF INH BID, (Reported) Folic Acid (Folic Acid) 1 Mg Tablet, 1 MG PO DAILY, (Reported) Lisinopril (Lisinopril) 2.5 Mg Tablet, 2.5 MG PO DAILY, (Reported) Magnesium Gluconate (Magnesium Gluconate) 27 Mg Tablet, 1 TAB PO DAILY, (Reported) Multivitamins (Thera M Plus Tablet) 1 Each Tablet, 1 TAB PO DAILY, (Reported) Omeprazole (Omeprazole) 40 Mg Capsule.dr, 40 MG PO DAILY, (Reported) PARoxetine HCl (Paroxetine Cr) 25 Mg Tab.er.24h, 25 MG PO DAILY, (Reported) Ropinirole HCl (Ropinirole HCl) 0.25 Mg Tablet, 0.25 MG PO QHS, (Reported) Theophylline Anhydrous (Theophylline) 400 Mg Tab.er.24h, 200 MG PO BID, (Reported) Umeclidinium Bryan (Incruse Ellipta) 62.5 Mcg Blst.w.dev, 62.5 MCG INH DAILY, (Reported) Scheduled PRN Albuterol Sulfate (Albuterol Sulfate Hfa) 8.5 Gm Hfa.aer.ad, 2 PUFF INH Q6H PRN for SHORTNESS OF BREATH, (Reported) Aspirin/Acetaminophen/Caffeine (Excedrin Migraine Caplet) 1 Each Tablet, 1 TAB PO BID PRN for HEADACHE, (Reported) Ipratropium/Albuterol Sulfate (Iprat-Albut 0.5-3(2.5) mg/3 ml) 3 Ml Ampul.neb, 3 ML INH QID PRN for WHEEZING, (Reported) Ondansetron (Ondansetron Odt) 4 Mg Tab.rapdis, 4 MG PO Q4H PRN for NAUSEA, (Reported) Allergies Coded Allergies: No Known Allergies (Unverified , 11/01/17) LILIANA GEIGER MD Mar 28, 2019 19:16
== END 2019-03-28 14:51 | disposition home health service (06) | DRG 140 ==
LOC: M ED 21:29 → M ED INP 03-21 03:06 → ENRESERV 03-21 04:22 → M ICU 03-21 04:55 → M PCU 03-21 19:28 → M ICU 03-23 09:39 → M MSPAV 03-26 15:00
PROVIDERS: ADMIT Internal Medicine; ATTEND Internal Medicine
DX: J44.1 Chronic obstructive pulmonary disease with (acute) exacerbation (principal); G93.41 Metabolic encephalopathy; F10.231 Alcohol dependence with withdrawal delirium; I27.20 Pulmonary hypertension, unspecified; Z99.81 Dependence on supplemental oxygen; I24.8 Other forms of acute ischemic heart disease; E87.1 Hypo-osmolality and hyponatremia; Z86.73 Personal history of transient ischemic attack (TIA), and cerebral infarction without residual deficits; Z79.82 Long term (current) use of aspirin; Z79.899 Other long term (current) drug therapy; I10 Essential (primary) hypertension; F41.9 Anxiety disorder, unspecified; F32.9 Major depressive disorder, single episode, unspecified; K21.9 Gastro-esophageal reflux disease without esophagitis; E78.5 Hyperlipidemia, unspecified; F17.200 Nicotine dependence, unspecified, uncomplicated; E87.6 Hypokalemia; E83.42 Hypomagnesemia; J96.22 Acute and chronic respiratory failure with hypercapnia; J96.21 Acute and chronic respiratory failure with hypoxia; I27.81 Cor pulmonale (chronic)